=== PATIENT | female | born 1960 | race Caucasian/White ===

== ENCOUNTER 2017-12-03 09:27 | Observation (INO) | payer OTHER, SELFPAY ==
[2017-12-03] VITALS (12 sets, daily range): BP systolic 114–166; BP diastolic 56–86; PULSE 69–99; RESP 14–16; TEMP 36.3–37; O2SAT 91–98; BMI 32.3; BMI 32.8
--- NOTE | 2017-12-03 07:35 | APP_PTH ---
PATIENT: ANDIE HAMMOND LOC: MS2 U#:[id number] AGE/SX: 56/F [place] [facility] [place]: Dr. Julio Jamison MD : 1960 BED: 1 DIS: 12/04/2017 SPEC #: [id number] RECD: 12/04/17 08:30 STATUS: CARMITA BRADFORD #: [id number] LEATHA: 12/03/17 07:[address]: Julio Jamison DEPT: SURGICAL PATHOLOGY RECD BY: Mina Gamble ENTERED: 12/04/17 11:52 SP TYPE: APPENDIX OTHR DR: Dr. Ruben White MD Tissues: Appendix, NOS Procedures: Surgery Specimen Level III HEADER OPERATION: Laparoscopic appendectomy PRE-OP DIAGNOSIS: Acute appendicitis TISSUE SUBMITTED: Appendix MICROSCOPIC DIAGNOSIS Appendix, appendectomy: Acute necrotizing appendicitis. Acute serositis. AM:eduardo 12/07/17 MICROSCOPIC DESCRIPTION Slides are reviewed. GROSS DESCRIPTION Received is one container labeled with the patient's name and designated appendix. The specimen consists of a J-shaped appendix measuring 13 cm in length and up to 2 cm in average diameter. The serosa is congested. The attached periappendiceal adipose tissue measures up to 2.5 cm in thickness. No obvious perforation is identified. The lumen contains purulent fecal material. No fecalith is identified. Cableway Operator sections are submitted in one cassette. / SJ:eduardo 12/04/17 TC:2 CPT: 71628
--- NOTE | 2017-12-03 09:40 | CT_ITS ---
STUDY: CT ABDOMEN AND PELVIS WITHOUT CONTRAST REASON FOR EXAM: Female, 56 years old. Right lower quadrant pain. Diarrhea RADIATION DOSAGE (If Supplied By Facility): CTDIvol = ( 19.39 ) mGy, DLP = ( 1056.35 ) mGycm TECHNIQUE: Transaxial images were obtained from the dome of the diaphragm to the symphysis pubis without oral contrast, and without intravenous contrast. Sagittal and coronal images were reconstructed. Individualized dose optimization techniques were used for this CT. COMPARISON: None. FINDINGS: The visualized lung bases are unremarkable. The visualized portions of the heart are within normal limits. Normal liver. There is non-visualization of the gallbladder, which may be secondary to either contraction or a prior cholecystectomy. Normal spleen. Normal pancreas. Normal bilateral adrenal glands. There is a stone in the right kidney measures 2 mm without hydronephrosis. Normal left kidney. Normal visualized stomach. Normal small intestine. There are multiple colonic diverticula consistent with diverticulosis. There is non-visualization of the appendix. Normal abdominal aorta. Normal inferior vena cava. Normal retroperitoneum. Normal urinary bladder. Normal abdominal wall. Normal osseous structures. CT/Abdomen/Pelvis without Cont IMPRESSION: Colon diverticulosis. 2 mm stone in the right kidney without hydronephrosis. Electronically Signed: Corina Elliott MD at 10:59 EDT Tel , Service support ,
[2017-12-03] MEDS: 0.9% Normal Saline 1,000 ML 125 ML IV (09:58)
[2017-12-03] MEDS: Dicyclomine 20 MG/2 ML Vial IM (09:58)
[2017-12-03 10:08] LABS: Absolute Lymphocyte Count 2.34 X10^3/ul (0.83-4.51); Absolute Neutrophil Count 11.3 X10^3/uL (2.0-7.7); Basophil# 0.01 X10^3/uL; Basophil% 0.1 % (0-1); Eosinophils% 0.7 % (0-5); Hematocrit 45.6 % (37-47); Hemoglobin 15.4 g/dl (12.0-15.0); Lymphocyte # 2.34 X10^3/ul (4.0); Lymphocyte % 15.9 % (19-41); Mean Corp Hgb Conc 33.8 g/gl (32-36); Mean Corpuscular Hgb 31.9 pg (27.0-32.0); Mean Corpuscular Volume 94.4 fL (81-99); Mean Platelet Vol. 10.4 fl (6.2-12.0); Monocyte# 0.89 X10^3/uL; Monocyte% 6.1 % (0-10); Neutrophil # 11.29 X10^3/uL (2.7-7.7); Neutrophil % 76.9 % (47-70); Platelet Count 249 K/mm3 (150-450); RBC Distribution Width SD 44.8 fl (35.1-43.9); Red Blood Count 4.83 M/mm3 (4.2-5.4); White Blood Count 14.7 K/mm3 (4.4-11.0)
[2017-12-03 10:09] LABS: POSITIVE COUNT NO; POSITIVE DIFFERENTIAL NO; POSITIVE MORPHOLOGY NO
[2017-12-03 10:22] LABS: AST(SGOT) 18 U/L (15-37); Alanine Aminotransfer ALT/SGPT 35 U/L (13-56); Alkaline Phosphatase 80 U/L (45-117); Anion Gap 8 (5-15); BUN 16 mg/dL (7-18); BUN/Creat Ratio 26.1 RATIO (10-20); Chloride 106 mmol/L (98-107); Creatinine, Serum 0.61 mg/dL (0.55-1.02); EST Glomerular Filtration Rate 107 mL/min (>60); Est Glom Filt Rate - Afr Amer 130 mL/min (>60); Estimated Creatinine Clearance 97.55 ml/min; Globulin 3.9 g/dL (2.2-4.2); Glucose 103 mg/dL (74-106); Lipase 102 U/L (73-393); Protein, Total 7.9 g/dL (6.4-8.2); Sodium Level 138 mmol/L (136-145)
[2017-12-03 10:31] LABS: Lactic Acid 1.8 mmol/L (0.4-2.0)
[2017-12-03 10:35] LABS: Red Blood Cells-Urine 0 SEEN /hpf (0-5)
[2017-12-03 10:37] LABS: Color, Urine Yellow (Yellow); Glucose, Dipstick Normal (Normal); Ketone-Dipstick Negative (Negative); Leukocyte Esterase-Dipstick 25 /ul (Negative); Nitrite-Dipstick Negative (Negative); Occult Blood-Urine 50 /ul (Negative); Protein-Dipstick 15 mg/dl (Negative); Urine Bilirubin Dipstick Negative (Negative); Urine Clarity Sl. Cloudy (Clear); Urine Urobilinogen Normal (Normal)
[2017-12-03 10:43] LABS: Bacteria 1+ /hpf (None Seen); Mucous, Urine RARE /hpf (<or=2+); Squamous Epithelial Cells - UA 0-5 SEEN /hpf (5-10); White Blood Cells 0-5 SEEN /hpf (0-5)
--- NOTE | 2017-12-03 11:04 | CT_ITS ---
STUDY: CT ABDOMEN WITH CONTRAST REASON FOR EXAM: Female, 56 years old. Right lower quadrant pain. RADIATION DOSAGE (If Supplied By Facility): CTDIvol = ( 18.62 ) mGy, DLP = ( 1268.25 ) mGycm TECHNIQUE: Transaxial images were obtained post I.V. administration of 100 ml of Isovue 300 contrast, and oral contrast. Sagittal and coronal images were reconstructed. Individualized dose optimization techniques were used for this CT. COMPARISON: None. FINDINGS: The visualized lung bases are unremarkable. The visualized portions of the heart are within normal limits. Normal liver. There is non-visualization of the gallbladder, which may be secondary to either contraction or a prior cholecystectomy. Normal spleen. Normal pancreas. Normal bilateral adrenal glands. There is a stone in the right kidney measures 2 mm without hydronephrosis. Normal left kidney. Normal visualized stomach. Normal small intestine. There are multiple colonic diverticula consistent with diverticulosis. There is a tubular, thick-walled appendix (>7mm), consistent with acute appendicitis. Normal abdominal aorta. Normal inferior vena cava. Normal retroperitoneum. Normal abdominal wall. Normal osseous structures. CT/Abdomen/Pelvis WITH Contrast IMPRESSION: Acute appendicitis. Electronically Signed: Corina Elliott MD at 13:07 EDT Tel , Service support ,
[2017-12-03] MEDS: proMETHazine 25 MG/ML Syringe 12.5 MG IV (12:04)
[2017-12-03] MEDS: Ketorolac 30 MG/ML Syringe IV (12:59)
[2017-12-03] MEDS: Piperacil/Tazobactam 3.375 GM/50 ML ML IV (14:00)
--- NOTE | 2017-12-03 14:04 | ED.DCSUM_ITS ---
- ER Visit Summary Date of Service: 12/03/17 Chief Complaint: [Abdominal pain] History of Present Illness: The patient is a 56 F [presents the emergency department complaint of abdominal pain that started around 5 AM. Patient describes it as epigastric and right-sided. Patient rates her pain currently as a 4 out of 10 but was much worse at home. Patient states that yesterday she had several episodes of watery stool. Patient denies any nausea or vomiting. She denies any fever. She denies urinary symptoms. She has had no recent travel or recent antibiotic usage. Patient does state that she frequently does get diarrhea so she was not to concerned about the diarrhea yesterday. Patient has a history of hypertension and high cholesterol. Prior surgical history includes cholecystectomy and hysterectomy as well as a lumpectomy.] Physical Examination: [HEENT-PERRLA, EOMI. Cranial nerves II through XII grossly intact. TMs clear. Mucous membranes moist. No adenopathy. Cardiovascular-regular rate and rhythm without murmur or ectopy Lungs-clear to auscultation, chest wall stable without crepitus or subcu emphysema Abdomen-normoactive bowel sounds, soft. Patient has tenderness palpation over the epigastric region as well as the right lower quadrant over McBurney's point. Patient does not have rebound, rigidity, or perineal signs. Extremities-intact ?4, normal range of motion, normal pulses, atraumatic] Test Results: [CBC with differential obtained showed a white blood cell count of 14.7, hemoglobin 15, hematocrit 46, platelets 249. Chemistries unremarkable. Liver enzymes were normal. Lipase was normal. Urinalysis was normal. CT flank initially without contrast was obtained and there was nonvisualization of the appendix. Patient was given p.o. contrast as well as IV contrast and a repeat CAT scan was obtained which does show a tubular structure in the right lower quadrant consistent with acute appendicitis.] Emergency Department Course and Treatment: [Patient case was discussed with Dr. Jamison who will evaluate patient in the emergency department. Patient was started on Zosyn at the request of the surgeon.] Treatment Plan: [Admit for operative intervention of acute appendicitis] Disposition: [Admit] Impression: [Abdominal pain Acute appendicitis] This note was generated with [employer] software. It may contain incorrect words, spelling, and punctuation that were not noted in review of the chart prior to signing ED Disposition - Plan for ED Patient: Chief Complaint: Abd Pain Referrals: Ruben White MD [Primary Care Provider] -
--- NOTE | 2017-12-03 14:39 | PCM.HP.STD ---
Problem List (1) Acute appendicitis Status: Acute Qualifiers: Acute appendicitis type: unspecified acute appendicitis type Qualified Code(s): K35.80 - Unspecified acute appendicitis History of Present Illness Date of Admission: 12/03/17 The patient is a 56 year old F who reports that she was having right lower quadrant pain that started this morning. She does have associated nausea vomiting. She says that the pain was getting worse until she got pain medication and out feels better. Past Medical History Allergies No Known Allergies Allergy (Unverified 12/03/17 09:29) Home Medications: Ambulatory Orders Medication Instructions Recorded Amlodipine Besylate [Norvasc] 5 mg PO DAILY 12/01/16 Escitalopram Oxalate [Lexapro] 20 mg PO DAILY 12/01/16 Pravastatin Sodium [Pravachol] 10 mg PO DAILY 12/01/16 Surgical History: cholecystectomy, - - Hysterectomy, tubal ligation Smoking Status: Current every day smoker - *Family History Maternal History Items: No pertinent history Review of Systems Constitutional: Reports: Anorexia. Denies: Chills HEENT: Denies: Difficulty Hearing Cardiovascular: Denies: Chest Pain Respiratory: Denies: Cough, Shortness of Breath Gastrointestinal: Reports: Abdominal Pain, Nausea, Vomiting. Denies: Hematemesis, Hematochezia Genitourinary: Denies: Dysuria Musculoskeletal: Denies: Joint Tenderness Skin: Denies: Dryness, Jaundice Psychiatric: Denies: Anxiety Hematologic/ Lymphatic: Denies: Anemia VTE Information - Inpt Only VTE Present on Admission: No VTE Mechan Device Prophylaxis: SCD's Patient Problems: Active and Suspected Problems Acute appendicitis (Acute) - Physical Exam General: Alert, Oriented x3 HEENT: PERRLA, EOMI Neck: Supple, No JVD Lungs: Normal air movement Cardiovascular: Regular rate, Regular Rhythm Abdomen: Soft, Non-Distended, Tender - Right lower quadrant with no guarding or rebound Extremities: No clubbing Skin: No rashes Musculoskeletal: No Muscle Wasting Neurological: Cranial nerves II-XII grossly intact Psych/Mental Status: Normal Affect, Appropriate Vital Signs Temp Pulse Resp BP Pulse Ox 97.9 F 75 16 158/85 H 97 12/03/17 14:17 12/03/17 14:17 12/03/17 14:17 12/03/17 14:17 12/03/17 14:17 Oxygen Delivery Method Room Air Weight: 200 lb Body Mass Index (BMI) 32.3 Laboratory Tests Past 24 Hrs 12/03/17 12/03/17 12/03/17 10:00 10:00 10:00 WBC 14.7 H RBC 4.83 Hgb 15.4 H Hct 45.6 MCV 94.4 MCH 31.9 MCHC 33.8 RDW 13.0 RDW Differential 44.8 H Plt Count 249 MPV 10.4 Immature Gran % (Auto) 0.300 Neut % (Auto) 76.9 H Lymph % (Auto) 15.9 L [place] % (Auto) 6.1 Eos % (Auto) 0.7 Baso % (Auto) 0.1 Absolute Neuts (auto) 11.3 H Absolute Lymphs (auto) 2.34 Total Counted Not Reportable Sodium 138 Potassium 4.0 Chloride 106 Carbon Dioxide 24.0 Anion Gap 8 BUN 16 Creatinine 0.61 Estim Creat Clear Calc 97.55 Est GFR (MDRD) Af Amer 130 Est GFR (MDRD) Non-Af 107 BUN/Creatinine Ratio 26.1 H Glucose 103 Lactic Acid 1.8 Calcium 9.0 Total Bilirubin 0.30 AST 18 ALT 35 Alkaline Phosphatase 80 Total Protein 7.9 Albumin 4.0 Globulin 3.9 Albumin/Globulin Ratio 1.0 Lipase 102 Urine Color Urine Clarity Urine pH Ur Specific [place] Urine Protein Urine Glucose (UA) Urine Ketones Urine Occult Blood Urine Nitrite Urine Bilirubin Urine Urobilinogen Ur Leukocyte Esterase Urine RBC Urine WBC Ur Squamous Epith Cells Urine Bacteria Urine Mucus 12/03/17 10:30 WBC RBC Hgb Hct MCV MCH MCHC RDW RDW Differential Plt Count MPV Immature Gran % (Auto) Neut % (Auto) Lymph % (Auto) [place] % (Auto) Eos % (Auto) Baso % (Auto) Absolute Neuts (auto) Absolute Lymphs (auto) Total Counted Sodium Potassium Chloride Carbon Dioxide Anion Gap BUN Creatinine Estim Creat Clear Calc Est GFR (MDRD) Af Amer Est GFR (MDRD) Non-Af BUN/Creatinine Ratio Glucose Lactic Acid Calcium Total Bilirubin AST ALT Alkaline Phosphatase Total Protein Albumin Globulin Albumin/Globulin Ratio Lipase Urine Color Yellow Urine Clarity Sl. Cloudy Urine pH 6.0 Ur Specific [place] 1.020 Urine Protein 15 H Urine Glucose (UA) Normal Urine Ketones Negative Urine Occult Blood 50 H Urine Nitrite Negative Urine Bilirubin Negative Urine Urobilinogen Normal Ur Leukocyte Esterase 25 H Urine RBC 0 SEEN Urine WBC 0-5 SEEN Ur Squamous Epith Cells 0-5 SEEN Urine Bacteria 1+ Urine Mucus RARE Clinical Impression(s) from Imaging Studies Abdomen/Pelvis CT 12/03/17 09:40 IMPRESSION: Colon diverticulosis. 2 mm stone in the right kidney without hydronephrosis. Electronically Signed: Corina Elliott MD at 10:59 EDT Tel , Service support , Abdomen/Pelvis CT 12/03/17 11:04 IMPRESSION: Acute appendicitis. Electronically Signed: Corina Elliott MD at 13:07 EDT Tel , Service support , Assessment/Plan All Active Problems Acute appendicitis (Acute) Ductal carcinoma in situ (DCIS) of left breast (Resolved) 56-year-old female with acute appendicitis 1. The patient has acute appendicitis based on her right lower quadrant pain and leukocytosis and CT scan findings. I described laparoscopic appendectomy to the patient including the risks of bleeding, infection, bowel injury, bladder injury. The patient wishes to proceed with surgery. The patient has been given antibiotics in the ER. Julio Jamison MD Pager: [facility] [address] [place] [address], [address] [place] [address] Office:
--- NOTE | 2017-12-03 14:44 | HP.PCM_ITS ---
Problem List (1) Acute appendicitis Status: Acute Qualifiers: Acute appendicitis type: unspecified acute appendicitis type Qualified Code(s): K35.80 - Unspecified acute appendicitis History of Present Illness Date of Admission: 12/03/17 The patient is a 56 year old F who reports that she was having right lower quadrant pain that started this morning. She does have associated nausea vomiting. She says that the pain was getting worse until she got pain medication and out feels better. Past Medical History Allergies No Known Allergies Allergy (Unverified 12/03/17 09:29) Home Medications: Ambulatory Orders Medication Instructions Recorded Amlodipine Besylate [Norvasc] 5 mg PO DAILY 12/01/16 Escitalopram Oxalate [Lexapro] 20 mg PO DAILY 12/01/16 Pravastatin Sodium [Pravachol] 10 mg PO DAILY 12/01/16 Surgical History: cholecystectomy, - - Hysterectomy, tubal ligation Smoking Status: Current every day smoker - *Family History Maternal History Items: No pertinent history Review of Systems Constitutional: Reports: Anorexia. Denies: Chills HEENT: Denies: Difficulty Hearing Cardiovascular: Denies: Chest Pain Respiratory: Denies: Cough, Shortness of Breath Gastrointestinal: Reports: Abdominal Pain, Nausea, Vomiting. Denies: Hematemesis, Hematochezia Genitourinary: Denies: Dysuria Musculoskeletal: Denies: Joint Tenderness Skin: Denies: Dryness, Jaundice Psychiatric: Denies: Anxiety Hematologic/ Lymphatic: Denies: Anemia VTE Information - Inpt Only VTE Present on Admission: No VTE Mechan Device Prophylaxis: SCD's Patient Problems: Active and Suspected Problems Acute appendicitis (Acute) - Physical Exam General: Alert, Oriented x3 HEENT: PERRLA, EOMI Neck: Supple, No JVD Lungs: Normal air movement Cardiovascular: Regular rate, Regular Rhythm Abdomen: Soft, Non-Distended, Tender - Right lower quadrant with no guarding or rebound Extremities: No clubbing Skin: No rashes Musculoskeletal: No Muscle Wasting Neurological: Cranial nerves II-XII grossly intact Psych/Mental Status: Normal Affect, Appropriate Vital Signs Temp Pulse Resp BP Pulse Ox 97.9 F 75 16 158/85 H 97 12/03/17 14:17 12/03/17 14:17 12/03/17 14:17 12/03/17 14:17 12/03/17 14:17 Oxygen Delivery Method Room Air Weight: 200 lb Body Mass Index (BMI) 32.3 Laboratory Tests Past 24 Hrs 12/03/17 12/03/17 12/03/17 10:00 10:00 10:00 WBC 14.7 H RBC 4.83 Hgb 15.4 H Hct 45.6 MCV 94.4 MCH 31.9 MCHC 33.8 RDW 13.0 RDW Differential 44.8 H Plt Count 249 MPV 10.4 Immature Gran % (Auto) 0.300 Neut % (Auto) 76.9 H Lymph % (Auto) 15.9 L [place] % (Auto) 6.1 Eos % (Auto) 0.7 Baso % (Auto) 0.1 Absolute Neuts (auto) 11.3 H Absolute Lymphs (auto) 2.34 Total Counted Not Reportable Sodium 138 Potassium 4.0 Chloride 106 Carbon Dioxide 24.0 Anion Gap 8 BUN 16 Creatinine 0.61 Estim Creat Clear Calc 97.55 Est GFR (MDRD) Af Amer 130 Est GFR (MDRD) Non-Af 107 BUN/Creatinine Ratio 26.1 H Glucose 103 Lactic Acid 1.8 Calcium 9.0 Total Bilirubin 0.30 AST 18 ALT 35 Alkaline Phosphatase 80 Total Protein 7.9 Albumin 4.0 Globulin 3.9 Albumin/Globulin Ratio 1.0 Lipase 102 Urine Color Urine Clarity Urine pH Ur Specific [place] Urine Protein Urine Glucose (UA) Urine Ketones Urine Occult Blood Urine Nitrite Urine Bilirubin Urine Urobilinogen Ur Leukocyte Esterase Urine RBC Urine WBC Ur Squamous Epith Cells Urine Bacteria Urine Mucus 12/03/17 10:30 WBC RBC Hgb Hct MCV MCH MCHC RDW RDW Differential Plt Count MPV Immature Gran % (Auto) Neut % (Auto) Lymph % (Auto) [place] % (Auto) Eos % (Auto) Baso % (Auto) Absolute Neuts (auto) Absolute Lymphs (auto) Total Counted Sodium Potassium Chloride Carbon Dioxide Anion Gap BUN Creatinine Estim Creat Clear Calc Est GFR (MDRD) Af Amer Est GFR (MDRD) Non-Af BUN/Creatinine Ratio Glucose Lactic Acid Calcium Total Bilirubin AST ALT Alkaline Phosphatase Total Protein Albumin Globulin Albumin/Globulin Ratio Lipase Urine Color Yellow Urine Clarity Sl. Cloudy Urine pH 6.0 Ur Specific [place] 1.020 Urine Protein 15 H Urine Glucose (UA) Normal Urine Ketones Negative Urine Occult Blood 50 H Urine Nitrite Negative Urine Bilirubin Negative Urine Urobilinogen Normal Ur Leukocyte Esterase 25 H Urine RBC 0 SEEN Urine WBC 0-5 SEEN Ur Squamous Epith Cells 0-5 SEEN Urine Bacteria 1+ Urine Mucus RARE Clinical Impression(s) from Imaging Studies Abdomen/Pelvis CT 12/03/17 09:40 IMPRESSION: Colon diverticulosis. 2 mm stone in the right kidney without hydronephrosis. Electronically Signed: Corina Elliott MD at 10:59 EDT Tel , Service support , Abdomen/Pelvis CT 12/03/17 11:04 IMPRESSION: Acute appendicitis. Electronically Signed: Corina Elliott MD at 13:07 EDT Tel , Service support , Assessment/Plan All Active Problems Acute appendicitis (Acute) Ductal carcinoma in situ (DCIS) of left breast (Resolved) 56-year-old female with acute appendicitis 1. The patient has acute appendicitis based on her right lower quadrant pain and leukocytosis and CT scan findings. I described laparoscopic appendectomy to the patient including the risks of bleeding, infection, bowel injury, bladder injury. The patient wishes to proceed with surgery. The patient has been given antibiotics in the ER. Julio Jamison MD Pager: [facility] [address] [place] [address], [address] [place] [address] Office:
[2017-12-03] MEDS: Bupiv/Epi 0.5% Mpf 30 ML Vial (16:03)
--- NOTE | 2017-12-03 16:12 | PCM.OPRPT ---
Problem List (1) Acute appendicitis Status: Acute Qualifiers: Acute appendicitis type: unspecified acute appendicitis type Qualified Code(s): K35.80 - Unspecified acute appendicitis Report of Operation Date of Procedure: 12/03/17 Pre-Operative Diagnosis: Acute appendicitis Post-Operative Diagnosis: Same Surgery/Procedure Performed:: Laparoscopic appendectomy Specimen's removed: Appendix Description of Procedure: The patient was brought into the operating room and general anesthesia was induced. The left arm was tucked and the abdomen was prepped and draped in usual sterile fashion. A small midline incision was made superior to the umbilicus and deepened to the level of the fascia. The fascia was elevated and incised. The peritoneum was also elevated and incised. A finger sweep was performed and a balloon trocar was placed into the abdomen and inflated. The abdomen was insufflated to 15 mmHg and the camera was inserted and the abdomen was inspected for any injuries upon entering the abdomen. There were none. There were dense adhesions in the superior abdomen adjacent to the umbilical trocar. The patient was placed in Trendelenburg position and a 5 mm ports placed in the left lower quadrant and suprapubic areas under direct visualization. Adhesions to the abdominal wall were taken down bluntly with a grasper. Next using atraumatic bowel graspers the appendix was identified. The appendix was grasped and elevated and a harmonic scalpel was used to take down the mesoappendix. A stapler was used to come across the base of the appendix. The appendix was then placed in Endo Catch bag and removed through the umbilical incision. The staple line was inspected and found to be hemostatic and intact. The 2 5 mm ports are removed under direct visualization. The balloon trocar was deflated and removed and all the air was removed from the abdomen. The umbilical incision fascia was closed with an 0 Vicryl [id number] suture. The incisions were then irrigated with saline and dried. Local anesthetic was injected into the incision sites. The skin incisions were then closed with interrupted 4-0 Monocryl suture and Steri-Strips. Bandages were applied and the patient was awoken and taken to PACU in stable condition. Patient tolerated the procedure well.
--- NOTE | 2017-12-03 16:18 | PCM.DC.SUM ---
Discharge Date and Diagnosis Date of Admission: 12/03/17 Date of Discharge: 12/04/17 - Primary Discharge Diagnosis Active and Suspected Problems Acute appendicitis (Acute) Hospital Course and Treatment Imaging Results: 12/03/17 09:40 Abdomen/Pelvis without Cont [CT] Stat 12/03/17 11:04 CT Abd [Abdomen/Pelvis WITH Contrast] [CT] Stat Clinical Impression(s) from Imaging Studies Abdomen/Pelvis CT 12/03/17 09:40 IMPRESSION: Colon diverticulosis. 2 mm stone in the right kidney without hydronephrosis. Electronically Signed: Corina Elliott MD at 10:59 EDT Tel , Service support , Abdomen/Pelvis CT 12/03/17 11:04 IMPRESSION: Acute appendicitis. Electronically Signed: Corina Elliott MD at 13:07 EDT Tel , Service support , Operations: appendectomy Procedures: None Summary of Care Provided: The patient is a 56 year old F who presented with RLQ pain. CT confirmed acute appendicitis and she was taken immediately for laparoscopic appendectomy. She tolerated surgery well and was admitted for observation. The following day she was tolerating a diet and doing well. She was discharged home. Discharge Diet: Light diet - advance as tolerated Discharge Activity: Return to Normal Activity, May Shower Call your doctor if your incision/area has: Continuous Slow Oozing, Sudden Increased Bleeding, Increased Pain/ Swelling, Increased Redness, Foul Smelling Discharge, Swelling at the incision site Call your doctor if you observe: Fever of 101 or Higher Home Medications: Medications to take at Discharge Amlodipine Besylate [Norvasc] 5 mg PO DAILY 12/01/16 Escitalopram Oxalate [Lexapro] 20 mg PO DAILY 12/01/16 Pravastatin Sodium [Pravachol] 10 mg PO DAILY 12/01/16 Docusate Sodium [Colace] 100 mg PO BID capsule 12/04/17 Hydrocodone Bitart/Apap 5-325 [[place] 5/325] 1 - 2 tablet PO Q4H PRN PRN 7 Days #30 tablet 10/05/18 Following Prescrptions Were Given to Patient: Hydrocodone Bitart/Apap 5-325 [[place] 5/325] 1 - 2 tablet PO Q4H PRN PRN 7 Days #30 tablet PRN Reason: Severe Pain (-12/09) Primary Care Physician: Ruben White MD [Primary Care Provider] - Please Follow Up With: Julio Jamison MD Medical Necessity - Tobacco Use Smoking Status: Current every day smoker Meaningful Use Info Meaningful Use Diagnoses (Choose all that apply): None applicable
[2017-12-03] MEDS: Docusate Sodium 100 MG Capsule PO (21:00)
[2017-12-03] MEDS: HYDROcodone Bitartrate/Apap 5/325 Tablet PO (21:00)
[2017-12-03] MEDS: 0.9% Normal Saline 1,000 ML 100 ML IV (21:00)
[2017-12-04] MEDS: Morphine 2 MG/ML Syringe IV (00:09)
[2017-12-04] MEDS: 0.9% NaCl Peripheral Flush Adult/Peds IV (00:09)
[2017-12-04 03:38] VITALS: BP 119/73; PULSE 70; RESP 18; TEMP 36.8; O2SAT 96
[2017-12-04] MEDS: HYDROcodone Bitartrate/Apap 5/325 Tablet PO (03:40)
[2017-12-04] MEDS: 0.9% Normal Saline 1,000 ML 100 ML IV (05:02)
--- NOTE | 2017-12-04 06:49 | PCM.DC.APPY ---
Discharge Diet: Light diet - advance as tolerated Discharge Activity: May Not Drive - for 3-5 days or while taking narcotic pain meds., May Shower Call your doctor if your incision/area has: Continuous Slow Oozing, Sudden Increased Bleeding, Increased Pain/ Swelling, Increased Redness, Foul Smelling Discharge Call your doctor if you observe: Fever of 101 or Higher Suture Line Care: Avoid Pulling/Pushing, Avoid Pinching/Bending Additional Dressing/Incision Instructions:: Keep dressing clean and dry. Change or remove dressing in 2 days. Leave steri strips for 1 week. May protect with a gauze bandaid. Medications to take at Discharge Amlodipine Besylate [Norvasc] 5 mg PO DAILY 12/01/16 Escitalopram Oxalate [Lexapro] 20 mg PO DAILY 12/01/16 Pravastatin Sodium [Pravachol] 10 mg PO DAILY 12/01/16 Docusate Sodium [Colace] 100 mg PO BID capsule 12/04/17 Hydrocodone Bitart/Apap 5-325 [[place] 5/325] 1 - 2 tablet PO Q4H PRN PRN 7 Days #30 tablet 12/04/17 Allergies/Adverse Reactions: Allergies No Known Allergies Allergy (Unverified 12/03/17 09:29) The following prescriptions were given: Hydrocodone Bitart/Apap 5-325 [[place] 5/325] 1 - 2 tablet PO Q4H PRN PRN 7 Days #30 tablet PRN Reason: Severe Pain (6-12/09) Primary Care Physician: Ruben White MD [Primary Care Provider] - Test Results: Test results from this visit will be discussed in further detail at your follow-up appointment, if applicable. Please Follow Up With: Julio Jamison MD When: Please call to schedule 2 week follow up appointment. [phone]
[2017-12-04 07:27] VITALS: BP 110/68; PULSE 68; RESP 18; TEMP 36.9; O2SAT 95
[2017-12-04 07:33] VITALS: PULSE 70
[2017-12-04] MEDS: Docusate Sodium 100 MG Capsule PO (09:38)
== END 2017-12-04 10:17 | disposition home or self-care (01) ==
LOC: ED 14:04 → SDC 14:27 → AC 14:29 → MS2 21:17
PROVIDERS: Admitting Provider Surgery; Emergency Provider Emergency Medicine; Family Provider Family Medicine; PCP Family Medicine; Visit Provider Surgery
PROC: 0DTJ4ZZ Resection of Appendix, Percutaneous Endoscopic Approach (ICD-10-PCS; CPT 44970; principal; 2017-12-03 07:15)
DX: K35.80 Unspecified acute appendicitis (principal); E78.00 Pure hypercholesterolemia, unspecified; I10 Essential (primary) hypertension; Z79.899 Other long term (current) drug therapy; F17.200 Nicotine dependence, unspecified, uncomplicated; Z85.3 Personal history of malignant neoplasm of breast
CPT/HCPCS: 00840; 44970; 74176; 74177; 80053; 81001; 83605; 83690; 85025; 87506; 88304; 96361; 96372; 96374; 96375; 99218; 99284; J7030; Q9967; A4216; C1760; G0378; J2405

== ENCOUNTER → 2018-01-02 10:31 | Outpatient (CLI) | payer OTHER, SELFPAY ==
--- NOTE | 2018-01-02 10:34 | BI_ITS ---
MAMMOGRAPHY - BILATERAL SCREENING REASON FOR EXAM: Female, 57 years old. Routine annual screening examination. PERTINENT HISTORY: Personal history of breast cancer. Prior left lumpectomy with radiation treatment. TECHNIQUE: Digital bilateral breast kae (3D mammographic acquisition) in the CC and MLO projections. 2-D mediolateral oblique (MLO) and craniocaudad (CC) views of both breasts were obtained. CAD: Full Field Digital Mammography with Computer Added Detection was performed. COMPARISON: Comparison is made with prior study dated November 27, 2016 and November 27, 2015. FINDINGS: Breast Composition: There are scattered areas of fibroglandular density. There are no dominant masses or suspicious calcifications. The patient is status post left lumpectomy with resultant decreased size of the left breast. Surgical clips are seen at the operative site in the deep retroareolar region. This is unchanged. No other significant abnormalities are identified. There has been no significant change since the prior study. BI/SCREENING MAMM (CAD), BILAT IMPRESSION: Stable bilateral screening mammogram. Yearly follow-up mammogram recommended. (A) ASSESSMENT CATEGORY: BIRADS Category 2: Benign. A letter regarding these results will be sent to the patient by the facility within 30 days. Approximately 10% of breast cancers are not detected by mammography. A normal mammogram should not delay biopsy of a clinically suspicious abnormality. [id number] Electronically Signed: Tello Madrid MD at 9:46 EST Tel [phone], Service support ,
== END ==
PROVIDERS: Family Provider Family Medicine; PCP Family Medicine; Visit Provider Internal Medicine Medical Oncology
DX: Z12.31 Encounter for screening mammogram for malignant neoplasm of breast (principal); Z85.3 Personal history of malignant neoplasm of breast
CPT/HCPCS: 77063; 77067

== ENCOUNTER → 2018-01-28 13:32 | Outpatient (CLI) | payer OTHER, SELFPAY ==
--- NOTE | 2018-01-28 13:36 | ECHOD_ITS ---
Reason For Study: Murmur Procedure This was a 2D Doppler, Color Flow transthoracic echocardiogram. The exam was of adequate technical quality. Exam performed in department. Left Ventricle Normal LV size. Left ventricular systolic function is hyperdynamic. The estimated ejection fraction is 75 %. The global longitudinal strain = -20 % (normal). Transmitral doppler flow suggestive of impaired relaxation of left ventricle. No regional wall motion abnormalities noted. Right Ventricle Normal RV size. Normal systolic function. Atria The left atrium is mildly enlarged. Normal right atrium. No doppler evidence for ASD. Mitral Valve There is no mitral annular calcification. Normal mitral valve. Trivial mitral valve insufficiency. Tricuspid Valve Normal tricuspid valve. Trivial tricuspid valve insufficiency. Right ventricular systolic pressure estimated to be 27 mmHg. Aortic Valve Trisinus/trileaflet aortic valve. Normal aortic valve. Pulmonic Valve The pulmonic valve is not well visualized. Trivial pulmonic valve insufficiency. Great Vessels Normal sized aortic root. Pericardium/Pleural No pericardial effusion. MMode/2D Measurements & Calculations LVIDd: 4.2 cm IVSd: 1.3 cm Ao root diam: 3.4 cm LVIDs: 3.2 cm LVPWd: 1.1 cm LA dimension: 3.8 cm RVDd: 3.3 cm FS: 23.3 % LAV(MOD-sp4): 55.9 ml LVAd ap4: 21.5 cm2 SV(MOD-sp4): 28.5 ml EDV(MOD-sp4): 46.6 ml EDV(sp4-el): 46.6 ml LVAs ap4: 11.0 cm2 ESV(MOD-sp4): 18.1 ml ESV(sp4-el): 16.4 ml EF(MOD-sp4): 61.2 % EF(sp4-el): 64.9 % SV(sp4-el): 30.3 ml LA A4 area: 19.5 cm2 RA A4 area: 11.5 cm2 Time Measurements MV dec time: 0.23 sec Doppler Measurements & Calculations MV E max stevie: 68.3 cm/sec Lat Peak E' Stevie: 8.2 cm/sec Med Peak E' Stevie: 7.4 cm/sec MV A max stevie: 94.3 cm/sec E/E' lat: 8.3 E/E' med: 9.2 MV E/A: 0.72 MV V2 max: 98.2 cm/sec MV P1/2t max stevie: 81.9 cm/sec Ao V2 max: 148.3 cm/sec MV max P.9 mmHg MV P1/2t: 62.2 msec Ao max P.8 mmHg MV V2 mean: 61.8 cm/sec Ao V2 mean: 109.0 cm/sec MV mean P.7 mmHg MV dec slope: 385.5 cm/sec2 Ao mean P.1 mmHg MV V2 VTI: 20.0 cm MVA(P1/2t): 3.5 cm2 Ao V2 VTI: 27.3 cm LV V1 max: 135.8 cm/sec PA V2 max: 132.9 cm/sec TR max stevie: 243.1 cm/sec LV V1 max P.4 mmHg TR max P.6 mmHg LV V1 mean P.5 mmHg LV V1 mean: 85.9 cm/sec LV V1 VTI: 23.9 cm Interpretation Summary Left ventricular systolic function is hyperdynamic. The estimated ejection fraction is 75 %. The global longitudinal strain = -20 % (normal). The left atrium is mildly enlarged. Trivial mitral valve insufficiency. Trivial tricuspid valve insufficiency. Trivial pulmonic valve insufficiency. Right ventricular systolic pressure estimated to be 27 mmHg. Transmitral doppler flow suggestive of impaired relaxation of left ventricle Ordering Physician: Ruben White Referring Physician: Ruben White Performed By: Berry Caballero RCS
--- OUTSIDE RECORDS SUMMARY | 2018-03-25 18:08 | XMS RPT_ITS ---
:1960 Author Organization OHIP Care Team Providers Name Role Phone Drew Worrell Attending Unavailable Maye White Primary Care Unavailable Maye White Referring Unavailable White, Maye Primary Care Unavailable Julio Jamison Attending Unavailable Meaghan Jamisonony Admitting Unavailable Calabretta, Julio Attending Unavailable White, Maye Primary Care Unavailable Calabretta, Julio Consulting Unavailable Calabretta, Julio Attending Unavailable White, Maye Referring Unavailable Drew Worrell Attending Unavailable White, Maye Primary Care Unavailable White, Maye Attending Unavailable White, Maye Referring Unavailable White, Maye Primary Care Unavailable Drew Worrell Attending Unavailable White, Maye Referring Unavailable White, Maye Primary Care Unavailable Drew Worrell Consulting Unavailable PROBLEMS PROBLEMS DATE TYPE CONDITION / CODE ATTENDING STATUS SOURCE 02/05/2018 Unknown C50.112 - Drew Worrell Active [facility] of left female Repository breast / C50.112(ICD-10) 02/05/2018 Unknown Z85.3 - Personal Drew Worrell Active [place] [facility] malignant ne[facility] Hospital of breast / Repository Z85.3(ICD-10) 12/07/2017 Unknown K35.80 - Mirella Jamison Unspecified acute [facility] appendicitis / Hospital K35.80(ICD-10) Repository PROCEDURES PROCEDURES No Procedure Records FoundRESULTS RESULTS ONCOLOGY VISIT REPORT Observed: 02/04/2018 Status: F Source: [place] 3:46 PM [facility] REPOSITORY [facility] [address] [place] [address] OFFICE VISIT Date of Service: 02/04/18 1540 MR#: [id number] Acct: [id number] Name: ANDIE HAMMOND Rep #: [id number] : 1960 From: Drew Worrell MD Age/Sex: 57/F Location: [facility] Status: Signed Subjective - Date of Service Date of Service:: 02/04/18 - Chief Complaint F/u for Left breast DCIS. - History of Present Illness 57-year-old woman was found to have abnormal mammogram in June 2008. Stereotactic biopsy showed low-grade DCIS. She had lumpectomy with sentinel node biopsy on September 13, 2008 which showed fibrocystic disease. She took radiation therapy from November 13 to January 04, 2009. She took tamoxifen from September 2008 to July 2010 it was discontinued because of intolerance especially hot flashes. She is currently on observation, comes in for follow-up. - Past Medical/Social History Past Medical History Past Medical History: Depression,Hypertension,Vitamin D deficiency Cancer: Breast cancer Past Surgical History Surgical: Cholecystectomy,Hysterectomy,Lumpectomy,Tubal ligation Family History Paternal Past Medical History: Unknown Paternal History of Cancer Lung cancer Maternal Past Medical History: Unknown Maternal History of Cancer: Lung cancer Social History Smoking Status Current every day smoker Review of Systems Constitutional:: Denies: Fever, Sweats, Weight loss, Appetite change, Chills Cardiovascular:: Denies: Chest pain, Palpitations, Dyspnea on exertion, Orthopnea, PND, Shortness of breath Respiratory: Denies: Cough, Hemoptysis, Shortness of Breath, Wheezing Gastrointestinal:: Denies: Abdominal pain, Nausea, Vomiting, Diarrhea, Constipation, Hematochezia Genitourinary: Denies: Dysuria, Hematuria, 15, Flank pain Musculoskeletal:: Denies: Back pain, Myalgia, Arthralgia Skin: Denies: Rash, Skin Changes, Wounds Neurological:: Denies: Headache, Dizziness, Visual changes, Tinnitus, Hearing loss Psychiatric: Denies: Anxiety, Depression, Homicidal Ideations, Suicidal Ideations Vital Signs Height 5 ft 6.5 in Weight: 95.708 kg Weight in Pounds 211.0 lbs Pulse Ox 95 - Physical Exam General: Alert, Oriented x3, No apparent distress HEENT: Atraumatic, PERRLA, EOMI, Normocephalic Oropharynx:: Dry mucosa Neck:: Supple, Trachea midline. Negative for: JVD, bilateral Cardiac:: Regular rate, Regular rhythm, Normal S1, Normal S2. Negative for: Murmur Lungs: Clear to auscultation, Excusion symmetrical. Negative for: Rhonchi, Wheezes Abdomen:: Bowel sounds x 4, Soft, Non-tender, Non-distended. Negative for: Hepatosplenomegaly Extremities:: Negative for: Cyanosis, Edema Neurological: Neuro grossly intact Skin:: Negative for: Lesions, Rash, Petechiae, Ecchymosis Psychiatric:: Appropriate affect, Euthymic Lymphatics:: Negative for: Cervical lymphadenopathy, Supraclavicular lymphadenopathy, Axillary lymphadenopathy Breast:: - - Deferrred. Laboratory Data: Laboratory Tests WBC 9.4 (4.4-11.0) K/mm3 RBC 4.76 (4.2-5.4) M/mm3 Hgb 15.3 H (12.0-15.0) g/dl Diagnostic Data: 01/02/2018 Mammogram reviewed. BI/SCREENING MAMM (CAD), BILAT IMPRESSION: Stable bilateral screening mammogram. Yearly follow-up mammogram recommended. (A) Assessment and Plan Left breast DCIS. Clinically stable. Mammogram is negative. Plan is to continue observation. RTC 1 yr with Mammogram/CBC/CMP. 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 TYPE CODE TESTS RESULT OUT OF RANGE REFERENCE UNITS LAB L100.1000 4.4-11.0 K/mm3 Normal WBC 9.4 LAB L100.1200 4.2-5.4 M/mm3 Normal RBC 4.76 LAB L100.1300 12.0-15.0 g/dl High HGB 15.3 LAB L100.1400 37-47 % Normal HCT 44.9 LAB L100.1500 81-99 fL Normal MCV 94.3 LAB L100.1600 27.0-32.0 pg High MCH 32.1 LAB L100.1700 32-36 g/gl Normal MCHC 34.1 LAB L100.1810 11.6-14.6 % Normal RDW CV 12.9 LAB L100.1820 35.1-43.9 fl High RDW SD 44.7 LAB L100.1900 150-450 K/mm3 Normal PLT 294 LAB L100.2000 6.2-12.0 fl Normal MPV 10.2 LAB L100.2100 47-70 % Normal NEUT% 62.4 LAB L100.2200 19-41 % Normal LY% 29.1 LAB L100.2300 0-10 % Normal MONO% 5.5 LAB L100.2400 0-5 % Normal EO% 2.5 LAB L100.2500 0-1 % Normal BASO% 0.2 LAB L100.2550 0.0-0.9 % Normal IM GRAN % 0.300 Result Comment: IG% - Immature Granulocytes (promyelocytes, myelocytes and metamyelocytes) > 1% indicates that a LEFT SHIFT is Present. LAB L100.2620 2.0-7.7 X10 3/uL Normal Absolute Neut 5.9 LAB L100.2720 0.83-4.51 X10 3/ul Normal Absolute Lymph 2.73 Performed By: #### L100.0100 #### [facility] [address] [place], [address] COMPREHENSIVE METABOLIC Collected: 02/04/2018 Status: F Source: [facility] 2:53 PM [facility] REPOSITORY Order Comment: Reason for Laboratory Test . TYPE CODE TESTS RESULT OUT OF RANGE REFERENCE UNITS LAB L501.0100 74-106 mg/dL High GLU 113 Result Comment: Fasting Glucose result from 100 to 125 mg/dL suggests IMPAIRED HOMEOSTASIS per A.D.A. criteria. Please note revised GLUCOSE reference range effective 2017. LAB L501.1000 7-18 mg/dL Normal BUN 18 LAB L501.1100 0.55-1.02 mg/dL Normal CREAT,SERUM 0.75 Result Comment: The validity of the calculated GFR AND GFRAA in patients over 70 years has not been determined. Clinical correlation is essential. LAB L501.1110 >60 mL/min Normal EST GFR 85 Result Comment: Non- GFR Calc LAB L501.1115 >60 mL/min Normal EST GFR - AA 103 Result Comment: GFR Calc LAB L501.1255 ml/min Normal Estimated CRCL 78.41 LAB L501.1300 10-20 RATIO High BUN/CRE 24.0 LAB L501.1500 6.4-8. g/dL Normal 2 T PROT 7.8 LAB L501.1800 3.2-5. g/dL Normal 0 ALB 3.9 LAB L501.1950 2.2-4. g/dL Normal 2 GLOB 3.9 LAB L501.2000 0.9-2. RATIO Normal 4 A/G 1.0 LAB L501.2200 8.5-10 mg/dL Normal .1 CA 9.0 LAB L501.4100 15-37 U/L Normal AST 21 Result Comment: Slight Hemolysis, Result may be falsely increased. LAB L501.4305 45-117 U/L Normal ALK P 86 LAB L501.4405 13-56 U/L Normal ALT 39 LAB L501.4600 0.20-1.00 mg/dL Normal T BILI 0.20 LAB L501.5300 136-145 mmol/L Normal NA 141 LAB L501.5600 3.5-5.1 mmol/L Normal K 4.0 Result Comment: Slight Hemolysis, Result may be falsely increased. LAB L501.5900 98-107 mmol/L Normal CL 107 LAB L501.6100 21.0-32.0 mmol/L Normal CO2 25.0 LAB L501.6200 5-15 Normal 9 GAP Performed By: #### L500.4050 #### [facility] [address] [facility] [place], [address] ECHOCARDIOGRAM COMPLETE Observed: 01/28/2018 Status: F Source: [place] 7:11 PM [facility] REPOSITORY [facility] Cardiovascular Services [address] [place] [address] Echo Complete 01/28/18 1346 MR#: [id number] Acct: [id number] Name: ANDIE HAMMOND Rep #: [id number] : 1960 57 From: Sg Garcia MD Attending Dr: Maye White MD Status: REG CLI Ordering Dr: Maye White MD Date: 01/28/18 Location: [facility] Sex: F C Admitted: Reason For Study: Murmur Procedure This was a 2D Doppler, Color Flow transthoracic echocardiogram. The exam was of adequate technical quality. Exam performed in department. Left Ventricle Normal LV size. Left ventricular systolic function is hyperdynamic. The estimated ejection fraction is 75 %. The global longitudinal strain = -20 % (normal). Transmitral doppler flow suggestive of impaired relaxation of left ventricle. No regional wall motion abnormalities noted. Right Ventricle Normal RV size. Normal systolic function. Atria The left atrium is mildly enlarged. Normal right atrium. No doppler evidence for ASD. Mitral Valve There is no mitral annular calcification. Normal mitral valve. Trivial mitral valve insufficiency. Tricuspid Valve Normal tricuspid valve. Trivial tricuspid valve insufficiency. Right ventricular systolic pressure estimated to be 27 mmHg. Aortic Valve Trisinus/trileaflet aortic valve. Normal aortic valve. Pulmonic Valve The pulmonic valve is not well visualized. Trivial pulmonic valve insufficiency. Great Vessels Normal sized aortic root. Pericardium/Pleural No pericardial effusion. MMode/2D Measurements AND Calculations LVIDd: 4.2 cm IVSd: 1.3 cm Ao root diam: 3.4 cm LVIDs: 3.2 cm LVPWd: 1.1 cm LA dimension: 3.8 cm RVDd: 3.3 cm FS: 23.3 % LAV(MOD-sp4): 55.9 ml LVAd ap4: 21.5 cm2 SV(MOD-sp4): 28.5 ml EDV(MOD-sp4): 46.6 ml EDV(sp4-el): 46.6 ml LVAs ap4: 11.0 cm2 ESV(MOD-sp4): 18.1 ml ESV(sp4-el): 16.4 ml EF(MOD-sp4): 61.2 % EF(sp4-el): 64.9 % SV(sp4-el): 30.3 ml LA A4 area: 19.5 cm2 RA A4 area: 11.5 cm2 Time Measurements MV dec time: 0.23 sec Doppler Measurements AND Calculations MV E max stevie: 68.3 cm/sec Lat Peak E' Stevie: 8.2 cm/sec Med Peak E' Stevie: 7.4 cm/sec MV A max stevie: 94.3 cm/sec E/E' lat: 8.3 E/E' med: 9.2 MV E/A: 0.72 MV V2 max: 98.2 cm/sec MV P1/2t max stevie: 81.9 cm/sec Ao V2 max: 148.3 cm/sec MV max P.9 mmHg MV P1/2t: 62.2 msec Ao max P.8 mmHg MV V2 mean: 61.8 cm/sec Ao V2 mean: 109.0 cm/sec MV mean P.7 mmHg MV dec slope: 385.5 cm/sec2 Ao mean P.1 mmHg MV V2 VTI: 20.0 cm MVA(P1/2t): 3.5 cm2 Ao V2 VTI: 27.3 cm LV V1 max: 135.8 cm/sec PA V2 max: 132.9 cm/sec TR max stevie: 243.1 cm/sec LV V1 max P.4 mmHg TR max P.6 mmHg LV V1 mean P.5 mmHg LV V1 mean: 85.9 cm/sec LV V1 VTI: 23.9 cm Interpretation Summary Left ventricular systolic function is hyperdynamic. The estimated ejection fraction is 75 %. The global longitudinal strain = -20 % (normal). The left atrium is mildly enlarged. Trivial mitral valve insufficiency. Trivial tricuspid valve insufficiency. Trivial pulmonic valve insufficiency. Right ventricular systolic pressure estimated to be 27 mmHg. Transmitral doppler flow suggestive of impaired relaxation of left ventricle Ordering Physician: Maye White Referring Physician: Maye White Performed By: Berry Caballero RCS 01/28/181909 Date Sg Garcia MD CC: Maye White MD Date Dictated: 01/28/18 1346 Date Transcribed: 01/28/181910 Pari Mutuel Ticket Seller: Signed SCREENING MAMM (CAD), Observed: 01/02/2018 Status: F Source: [facility] 10:34 AM [facility] REPOSITORY [facility] Imaging Services [address] [place] [address] SCREENING MAMM (CAD), BIL MR#: [id number] Acct: [id number] Name: ANDIE HAMMOND Rep #: [id number] : 1960 F 57 From: Tello Mdarid MD PCP: Maye White MD Status: REG CLI Study: SCREENING MAMM (CAD), BILAT Date of Exam: 01/02/18 Exam# [id number] Ordering Dr: Drew Wrorell MD MAMMOGRAPHY - BILATERAL SCREENING REASON FOR EXAM: Female, 57 years old. Routine annual screening examination. PERTINENT HISTORY: Personal history of breast cancer. Prior left lumpectomy with radiation treatment. TECHNIQUE: Digital bilateral breast kae (3D mammographic acquisition) in the CC and MLO projections. 2-D mediolateral oblique (MLO) and craniocaudad (CC) views of both breasts were obtained. CAD: Full Field Digital Mammography with Computer Added Detection was performed. COMPARISON: Comparison is made with prior study dated November 27, 2016 and November 27, 2015. FINDINGS: Breast Composition: There are scattered areas of fibroglandular density. There are no dominant masses or suspicious calcifications. The patient is status post left lumpectomy with resultant decreased size of the left breast. Surgical clips are seen at the operative site in the deep retroareolar region. This is unchanged. No other significant abnormalities are identified. There has been no significant change since the prior study. BI/SCREENING MAMM (CAD), BILAT IMPRESSION: Stable bilateral screening mammogram. Yearly follow-up mammogram recommended. (A) ASSESSMENT CATEGORY: BIRADS Category 2: Benign. A letter regarding these results will be sent to the patient by the facility within 30 days. Approximately 10% of breast cancers are not detected by mammography. A normal mammogram should not delay biopsy of a clinically suspicious abnormality. [id number] Electronically Signed: Tello Madrid MD at 9:46 EST Tel [phone], Service support , CC: Maye White MD; Drew Worrell MD Pari Mutuel Ticket Seller: Signed SURGERY VISIT REPORT Observed: 12/15/2017 Status: F Source: [place] 2:02 PM [facility] REPOSITORY [facility] [address] [place] [address] OFFICE VISIT Date of Service: 12/15/17 MR#: [id number] Acct: [id number] Name: ANDIE HAMMOND Rep #: [id number] : 1960 Provider: Julio Jamison MD Age/Sex: 56/F Location: [facility] Status: Signed Intake Intake Visit Reasons: f/u appy 12/03/17 Chief Complaint: ABOMINAL PAIN Allergies No Known Allergies Allergy (Verified 12/15/17 13:36) Medications Amlodipine Besylate [Norvasc] 5 mg PO DAILY 12/01/16 [History Confirmed 12/15/17] Escitalopram Oxalate [Lexapro] 20 mg PO DAILY 12/01/16 [History Confirmed 12/15/17] Pravastatin Sodium [Pravachol] 10 mg PO DAILY 12/01/16 [History Confirmed 12/15/17] Docusate Sodium [Colace] 100 mg PO BID cap 12/04/17 [Rx Confirmed 12/15/17] omeprazole 10 mg capsule,delayed release 10 mg PO DAILY #30 cap 12/15/17 [Rx Confirmed 12/15/17] Subjective Details: The patient reports she is not having any abdominal pain but she is having some acid reflux. She has been on a lot of [id number] antacids which are not helping. She reports she is having normal bowel movements and having normal flatus. She is not having any nausea or vomiting. She denies any fevers or chills. Objective Details: Patient's abdomen is soft, nontender, nondistended. Her incisions are healing well with no erythema or ecchymosis. Assessment AND Plan 1. Acute appendicitis, unspecified acute appendicitis type K35.80 Plan 1. Patient is doing well after appendectomy. She can resume full activity as of December 21 and return to work. 2. GERD (gastroesophageal reflux disease) K21.9 Plan Patient reports she has been having a lot of acid reflux since surgery. I will give her a month supply of omeprazole. She will follow-up in 2 weeks to see how it is doing. Julio Jamison MD Pager: [facility] [address] [place] [address], [address] [place] [address] Office: Plan Detail Other Medications New: Coding Level of Care Code Global Post Op Diagnoses Acute appendicitis, unspecified acute appendicitis type K35.80 Acute appendicitis type: unspecified acute appendicitis type GERD (gastroesophageal reflux disease) K21.9 12/15/17 1402 <Electronically signed by Julio Jamison MD> Date Julio Jamison MD Cosigner Signature: Date (if applicable) CC: Maye White MD DISCHARGE SUMMARY Observed: 12/04/2017 Status: F Source: [place] 12:57 PM [facility] REPOSITORY [facility] Medical Records Department [address] [place] [address] [place] [address] Discharge Summary 12/03/17 1618 MR#: [id number] Acct: [id number] Name: ANDIE HAMMOND Rep #: [id number] : 1960 56 From: Julio Jamison MD PCP: Maye White MD Status: DIS DINAH Y Location: [place] [address]-1 Discharge Date and Diagnosis Date of Admission: 12/03/17 Date of Discharge: 12/04/17 - Primary Discharge Diagnosis Active and Suspected Problems Acute appendicitis (Acute) Hospital Course and Treatment Imaging Results: 12/03/17 09:40 Abdomen/Pelvis without Cont [CT] Stat 12/03/17 11:04 CT Abd [Abdomen/Pelvis WITH Contrast] [CT] Stat Clinical Impression(s) from Imaging Studies Abdomen/Pelvis CT 12/03/17 09:40 IMPRESSION: Colon diverticulosis. 2 mm stone in the right kidney without hydronephrosis. Electronically Signed: Corina Elliott MD at 10:59 EDT Tel , Service support , Abdomen/Pelvis CT 12/03/17 11:04 IMPRESSION: Acute appendicitis. Electronically Signed: Corina Elliott MD at 13:07 EDT Tel , Service support , Operations: appendectomy Procedures: None Summary of Care Provided: The patient is a 56 year old F who presented with RLQ pain. CT confirmed acute appendicitis and she was taken immediately for laparoscopic appendectomy. She tolerated surgery well and was admitted for observation. The following day she was tolerating a diet and doing well. She was discharged home. Discharge Diet: Light diet - advance as tolerated Discharge Activity: Return to Normal Activity, May Shower Call your doctor if your incision/area has: Continuous Slow Oozing, Sudden Increased Bleeding, Increased Pain/ Swelling, Increased Redness, Foul Smelling Discharge, Swelling at the incision site Call your doctor if you observe: Fever of 101 or Higher Home Medications: Medications to take at Discharge Amlodipine Besylate [Norvasc] 5 mg PO DAILY 12/01/16 Escitalopram Oxalate [Lexapro] 20 mg PO DAILY 12/01/16 Pravastatin Sodium [Pravachol] 10 mg PO DAILY 12/01/16 Docusate Sodium [Colace] 100 mg PO BID capsule 12/04/17 Hydrocodone Bitart/Apap 5-325 [[place] 5/325] 1 - 2 tablet PO Q4H PRN PRN 7 Days #30 tablet 12/04/17 Following Prescrptions Were Given to Patient: Hydrocodone Bitart/Apap 5-325 [[place] 5/325] 1 - 2 tablet PO Q4H PRN PRN 7 Days #30 tablet PRN Reason: Severe Pain (-12/09) Primary Care Physician: Maye White MD [Primary Care Provider] - Please Follow Up With: Julio Jamison MD Medical Necessity - Tobacco Use Smoking Status: Current every day smoker Meaningful Use Info Meaningful Use Diagnoses (Choose all that apply): None applicable 12/04/17 1257 <Electronically signed by Julio Jamison MD> Date Julio Jamison MD Cosigner Signature (if applicable): Date CC: Julio Jamison MD; Maye White MD Signed DISCHARGE INSTRUCTION Observed: 12/04/2017 Status: F Source: [place] 6:50 AM [facility] REPOSITORY [facility] Medical Records Department [address] [place] [address] Instructions for Home/Discharge Instructions 12/04/17 0649 MR#: [id number] Acct: [id number] Name: ANDIE HAMMOND Rep #: [id number] : 1960 56 From: Julio Jamison MD PCP: Maye White MD Status: REG [facility] Discharge Diet: Light diet - advance as tolerated Discharge Activity: May Not Drive - for 3-5 days or while taking narcotic pain meds., May Shower Call your doctor if your incision/area has: Continuous Slow Oozing, Sudden Increased Bleeding, Increased Pain/ Swelling, Increased Redness, Foul Smelling Discharge Call your doctor if you observe: Fever of 101 or Higher Suture Line Care: Avoid Pulling/Pushing, Avoid Pinching/Bending Additional Dressing/Incision Instructions:: Keep dressing clean and dry. Change or remove dressing in 2 days. Leave steri strips for 1 week. May protect with a gauze bandaid. Medications to take at Discharge Amlodipine Besylate [Norvasc] 5 mg PO DAILY 12/01/16 Escitalopram Oxalate [Lexapro] 20 mg PO DAILY 12/01/16 Pravastatin Sodium [Pravachol] 10 mg PO DAILY 12/01/16 Docusate Sodium [Colace] 100 mg PO BID capsule 12/04/17 Hydrocodone Bitart/Apap 5-325 [[place] 5/325] 1 - 2 tablet PO Q4H PRN PRN 7 Days #30 tablet 12/04/17 Allergies/Adverse Reactions: Allergies No Known Allergies Allergy (Unverified 12/03/17 09:29) The following prescriptions were given: Hydrocodone Bitart/Apap 5-325 [[place] 5/325] 1 - 2 tablet PO Q4H PRN PRN 7 Days #30 tablet PRN Reason: Severe Pain (6-12/09) Primary Care Physician: Maye White MD [Primary Care Provider] - Test Results: Test results from this visit will be discussed in further detail at your follow-up appointment, if applicable. Please Follow Up With: Julio Jamison MD When: Please call to schedule 2 week follow up appointment. [phone] 12/04/17 0650 <Electronically signed by Julio Jamison MD> Date Julio Jamison MD CC: Maye White MD OPERATIVE REPORT Observed: 12/03/2017 Status: F Source: [place] 4:13 PM [facility] REPOSITORY [facility] Medical Records Department [address] [place] [address] Operative Report 12/03/17 1612 MR#: [id number] Acct: [id number] Name: ANDIE HAMMOND Rep #: [id number] : 1960 56 From: Julio Jamison MD PCP: Maye White MD Status: [employer] Y Location: [place] [address] Problem List (1) Acute appendicitis Status: Acute Qualifiers: Acute appendicitis type: unspecified acute appendicitis type Qualified Code(s): K35.80 - Unspecified acute appendicitis Report of Operation Date of Procedure: 12/03/17 Pre-Operative Diagnosis: Acute appendicitis Post-Operative Diagnosis: Same Surgery/Procedure Performed:: Laparoscopic appendectomy Specimen's removed: Appendix Description of Procedure: The patient was brought into the operating room and general anesthesia was induced. The left arm was tucked and the abdomen was prepped and draped in usual sterile fashion. A small midline incision was made superior to the umbilicus and deepened to the level of the fascia. The fascia was elevated and incised. The peritoneum was also elevated and incised. A finger sweep was performed and a balloon trocar was placed into the abdomen and inflated. The abdomen was insufflated to 15 mmHg and the camera was inserted and the abdomen was inspected for any injuries upon entering the abdomen. There were none. There were dense adhesions in the superior abdomen adjacent to the umbilical trocar. The patient was placed in Trendelenburg position and a 5 mm ports placed in the left lower quadrant and suprapubic areas under direct visualization. Adhesions to the abdominal wall were taken down bluntly with a grasper. Next using atraumatic bowel graspers the appendix was identified. The appendix was grasped and elevated and a harmonic scalpel was used to take down the mesoappendix. A stapler was used to come across the base of the appendix. The appendix was then placed in Endo Catch bag and removed through the umbilical incision. The staple line was inspected and found to be hemostatic and intact. The 2 5 mm ports are removed under direct visualization. The balloon trocar was deflated and removed and all the air was removed from the abdomen. The umbilical incision fascia was closed with an 0 Vicryl [id number] suture. The incisions were then irrigated with saline and dried. Local anesthetic was injected into the incision sites. The skin incisions were then closed with interrupted 4-0 Monocryl suture and Steri-Strips. Bandages were applied and the patient was awoken and taken to PACU in stable condition. Patient tolerated the procedure well. 12/03/17 1613 <Electronically signed by Julio Jamison MD> Date Julio Jamison MD CC: Julio Jamison MD; Maye White MD Signed HISTORY AND PHYSICAL Observed: 12/03/2017 Status: F Source: [place] EXAM 2:44 PM [facility] REPOSITORY [facility] Medical Records Department [address] [place] [address] History and Physical 12/03/17 1439 MR#: [id number] Acct: [id number] Name: ANDIE HAMMOND Rep #: [id number] : 1960 56 From: Juloi Jamison MD PCP: Maye White MD [place] [facility] [place] [facility]01-1 Problem List (1) Acute appendicitis Status: Acute Qualifiers: Acute appendicitis type: unspecified acute appendicitis type Qualified Code(s): K35.80 - Unspecified acute appendicitis History of Present Illness Date of Admission: 12/03/17 The patient is a 56 year old F who reports that she was having right lower quadrant pain that started this morning. She does have associated nausea vomiting. She says that the pain was getting worse until she got pain medication and out feels better. Past Medical History Allergies No Known Allergies Allergy (Unverified 12/03/17 09:29) Home Medications: Ambulatory Orders Medication Instructions Recorded Surgical History: cholecystectomy, - - Hysterectomy, tubal ligation Smoking Status: Current every day smoker - *Family History Maternal History Items: No pertinent history Review of Systems Constitutional: Reports: Anorexia. Denies: Chills HEENT: Denies: Difficulty Hearing Cardiovascular: Denies: Chest Pain Respiratory: Denies: Cough, Shortness of Breath Gastrointestinal: Reports: Abdominal Pain, Nausea, Vomiting. Denies: Hematemesis, Hematochezia Genitourinary: Denies: Dysuria Musculoskeletal: Denies: Joint Tenderness Skin: Denies: Dryness, Jaundice Psychiatric: Denies: Anxiety Hematologic/ Lymphatic: Denies: Anemia VTE Information - Inpt Only VTE Present on Admission: No VTE Mechan Device Prophylaxis: SCD's Patient Problems: Active and Suspected Problems Acute appendicitis (Acute) - Physical Exam General: Alert, Oriented x3 HEENT: PERRLA, EOMI Neck: Supple, No JVD Lungs: Normal air movement Cardiovascular: Regular rate, Regular Rhythm Abdomen: Soft, Non-Distended, Tender - Right lower quadrant with no guarding or rebound Extremities: No clubbing Skin: No rashes Musculoskeletal: No Muscle Wasting Neurological: Cranial nerves II-XII grossly intact Psych/Mental Status: Normal Affect, Appropriate Vital Signs Temp Pulse Resp BP Pulse Ox 97.9 F 75 16 158/85 H 97 12/03/17 14:17 12/03/17 14:17 12/03/17 14:17 12/03/17 14:17 12/03/17 14:17 Oxygen Delivery Method Room Air Weight: 200 lb Body Mass Index (BMI) 32.3 Laboratory Tests Past 24 Hrs WBC 14.7 H RBC 4.83 Hgb 15.4 H Hct 45.6 MCV 94.4 MCH 31.9 WBC RBC Hgb Hct MCV MCH MCHC RDW RDW Differential Clinical Impression(s) from Imaging Studies Abdomen/Pelvis CT 12/03/17 09:40 IMPRESSION: Colon diverticulosis. 2 mm stone in the right kidney without hydronephrosis. Electronically Signed: Corina Elliott MD at 10:59 EDT Tel , Service support , Abdomen/Pelvis CT 12/03/17 11:04 IMPRESSION: Acute appendicitis. Electronically Signed: Corina [place] MD at 13:07 EDT Tel , Service support , Assessment/Plan All Active Problems Acute appendicitis (Acute) Ductal carcinoma in situ (DCIS) of left breast (Resolved) 56-year-old female with acute appendicitis 1. The patient has acute appendicitis based on her right lower quadrant pain and leukocytosis and CT scan findings. I described laparoscopic appendectomy to the patient including the risks of bleeding, infection, bowel injury, bladder injury. The patient wishes to proceed with surgery. The patient has been given antibiotics in the ER. Julio Jamison MD Pager: [facility] [address] [place] [address] Office: 12/03/17 144 <Electronically signed by Julio Jamison MD> Date Julio Jamison MD Cosigner Signature: Date (if applicable) CC: Julio Jamison MD; Maye White MD Signed EMERGENCY DEPARTMENT Observed: 12/03/2017 Status: F Source: [place] SUMMARY 2:04 PM [facility] REPOSITORY [facility] Medical Records Department [address] [place] [address] Emergency Department Summary 12/03/17 1402 MR#: [id number] Acct: [id number] Name: ANDIE HAMMOND Rep #: [id number] : 1960 56 From: Reymundo Beaver DO PCP: Maye White MD Status: REG ER - ER Visit Summary Date of Service: 12/03/17 Chief Complaint: [Abdominal pain] History of Present Illness: The patient is a 56 F [presents the emergency department complaint of abdominal pain that started around 5 AM. Patient describes it as epigastric and right-sided. Patient rates her pain currently as a 4 out of 10 but was much worse at home. Patient states that yesterday she had several episodes of watery stool. Patient denies any nausea or vomiting. She denies any fever. She denies urinary symptoms. She has had no recent travel or recent antibiotic usage. Patient does state that she frequently does get diarrhea so she was not to concerned about the diarrhea yesterday. Patient has a history of hypertension and high cholesterol. Prior surgical history includes cholecystectomy and hysterectomy as well as a lumpectomy.] Physical Examination: [HEENT-PERRLA, EOMI. Cranial nerves II through XII grossly intact. TMs clear. Mucous membranes moist. No adenopathy. Cardiovascular-regular rate and rhythm without murmur or ectopy Lungs-clear to auscultation, chest wall stable without crepitus or subcu emphysema Abdomen-normoactive bowel sounds, soft. Patient has tenderness palpation over the epigastric region as well as the right lower quadrant over McBurney's point. Patient does not have rebound, rigidity, or perineal signs. Extremities-intact 4, normal range of motion, normal pulses, atraumatic] Test Results: [CBC with differential obtained showed a white blood cell count of 14.7, hemoglobin 15, hematocrit 46, platelets 249. Chemistries unremarkable. Liver enzymes were normal. Lipase was normal. Urinalysis was normal. CT flank initially without contrast was obtained and there was nonvisualization of the appendix. Patient was given p.o. contrast as well as IV contrast and a repeat CAT scan was obtained which does show a tubular structure in the right lower quadrant consistent with acute appendicitis.] Emergency Department Course and Treatment: [Patient case was discussed with Dr. Jamison who will evaluate patient in the emergency department. Patient was started on Zosyn at the request of the surgeon.] Treatment Plan: [Admit for operative intervention of acute appendicitis] Disposition: [Admit] Impression: [Abdominal pain Acute appendicitis] This note was generated with Topioation software. It may contain incorrect words, spelling, and punctuation that were not noted in review of the chart prior to signing ED Disposition - Plan for ED Patient: Chief Complaint: Abd Pain Referrals: Maye White MD [Primary Care Provider] - What to do if you have Problems For any increased pain, shortness of breath, bleeding, nausea or vomiting, chest pain, or any unexpected problems, contact your Primary Care Provider. Call [facility] ([phone]) or report to the closest Emergency Room. Call 911 if necessary. 12/03/17 1404 <Electronically signed by Reymundo Beaver DO> Date Reymundo Beaver DO Cosigner Signature (If Indicated): Date CC: Maye White MD Observed: 12/03/2017 Status: F Source: [place] ENTERIC PATHOGEN 11:42 AM [facility] PANEL STOOL REPOSITORY Order Date: 12/03/17 Has pt arrived? Y EP PANEL STOOL Normal Reference Range = Not Detected Not detected for Campylobacter group, Salmonella species, Shigella species, Vibrio Group, Yersinia enterocolitica, EHEC (Shiga Toxin 1, Shiga Toxin 2), Norovirus Gl/Gll, and Rotavirus A. Other common stool pathogens are not detected on this panel include: Aeromonas/Plesiomonas or parasites. Order testing for these organisms separately if suspected. This is an amplified DNA test which makes it both specific and sensitive. CAMPYLOBACTER Not Detected Salmonella Not Detected Shigella sp. Not Detected Shiga Toxin Not Detected Yersinia Not Detected VIBRIO Not Detected Norovirus Not Detected Rotavirus Not Detected Performed By: #### M100.637 #### [facility] [address] [facility] [place], [place], [address] ABDOMEN/PELVIS WITH Observed: 12/03/2017 Status: F Source: [place] CONTRAST 11:04 AM [facility] REPOSITORY [facility] Imaging Services [address] [place] [address] Abdomen/Pelvis WITH Contrast MR#: [id number] Acct: [id number] Name: ANDIE HAMMOND Rep #: [id number] : 1960 F 56 From: Corina Elliott MD PCP: Maye White MD Status: REG ER Study: Abdomen/Pelvis WITH Contrast Date of Exam: 12/03/17 Exam# [id number] Ordering Dr: Reymundo Beaver DO STUDY: CT ABDOMEN WITH CONTRAST REASON FOR EXAM: Female, 56 years old. Right lower quadrant pain. RADIATION DOSAGE (If Supplied By Facility): CTDIvol = ( 18.62 ) mGy, DLP = ( 1268.25 ) mGycm TECHNIQUE: Transaxial images were obtained post I.V. administration of 100 ml of Isovue 300 contrast, and oral contrast. Sagittal and coronal images were reconstructed. Individualized dose optimization techniques were used for this CT. COMPARISON: None. FINDINGS: The visualized lung bases are unremarkable. The visualized portions of the heart are within normal limits. Normal liver. There is non-visualization of the gallbladder, which may be secondary to either contraction or a prior cholecystectomy. Normal spleen. Normal pancreas. Normal bilateral adrenal glands. There is a stone in the right kidney measures 2 mm without hydronephrosis. Normal left kidney. Normal visualized stomach. Normal small intestine. There are multiple colonic diverticula consistent with diverticulosis. There is a tubular, thick-walled appendix (>7mm), consistent with acute appendicitis. Normal abdominal aorta. Normal inferior vena cava. Normal retroperitoneum. Normal abdominal wall. Normal osseous structures. CT/Abdomen/Pelvis WITH Contrast IMPRESSION: Acute appendicitis. Electronically Signed: Corina Elliott MD at 13:07 EDT Tel , Service support , CC: Maye White MD; Reymundo Beaver DO [employer] Ticket Seller: Signed URINALYSIS, COMPLETE Collected: 12/03/2017 Status: F Source: [place] 10:30 AM [facility] REPOSITORY Order Comment: Order Date: 12/03/17 Has pt arrived? Y How was Urine Obtained? CLEAN CATCH TYPE CODE TESTS RESULT OUT OF RANGE REFERENCE UNITS LAB L400.3000 Yellow COLOR Normal Yellow LAB L400.3050 Clear Normal CLARITY Sl. Cloudy LAB L400.3200 Normal mg/dl Normal GLUCOSE, UR Normal LAB L400.3300 Negative mg/dL Normal BILIRUBIN URINE Negative LAB L400.3400 Negative mg/dl Normal KETONE UR Negative LAB L400.3465 1.002-1.030 Normal SP.GR. DIPSTX 1.020 LAB L400.3550 5.0 - 8.0 pH UR Normal 6.0 LAB L400.3600 Negative mg/dl High PROT 15 DIPSTX LAB L400.3700 Normal mg/dl Normal UROBILI Normal LAB L400.3750 Negative Normal NITRITE UR Negative LAB L400.3780 Negative /ul High 50 OCCULT BLOOD-UR LAB L400.3800 Negative /ul High LEUK 25 ESTERASE LAB L400.4050 0-5 /hpf WBC Normal 0-5 SEEN LAB L400.4100 0-5 /hpf 0 Normal RBC-UA SEEN LAB L400.4150 5-10 /hpf SQUAM Normal EPI 0-5 SEEN LAB L400.4300 None Seen /hpf 1+ Normal BACTERIA LAB L400.4350 <or=2+ /hpf Normal MUCUS, URINE RARE Performed By: #### L400.0001 #### [facility] [address] [place], [address] CBC W/DIFF, AUTOMATED Collected: 12/03/2017 Status: F Source: [place] 10:00 AM [facility] REPOSITORY TYPE CODE TESTS RESULT OUT OF RANGE REFERENCE UNITS LAB L100.1000 4.4-11.0 K/mm3 High WBC 14.7 LAB L100.1200 4.2-5.4 M/mm3 Normal RBC 4.83 LAB L100.1300 12.0-15.0 g/dl High HGB 15.4 LAB L100.1400 37-47 % Normal HCT 45.6 LAB L100.1500 81-99 fL Normal MCV 94.4 LAB L100.1600 27.0-32.0 pg Normal MCH 31.9 LAB L100.1700 32-36 g/gl Normal MCHC 33.8 LAB L100.1810 11.6-14.6 % Normal RDW CV 13.0 LAB L100.1820 35.1-43.9 fl High RDW SD 44.8 LAB L100.1900 150-450 K/mm3 Normal PLT 249 LAB L100.2000 6.2-12.0 fl Normal MPV 10.4 LAB L100.2100 47-70 % High NEUT% 76.9 LAB L100.2200 19-41 % Low LY% 15.9 LAB L100.2300 0-10 % Normal MONO% 6.1 LAB L100.2400 0-5 % Normal EO% 0.7 LAB L100.2500 0-1 % Normal BASO% 0.1 LAB L100.2550 0.0-0.9 % Normal IM GRAN % 0.300 Result Comment: IG% - Immature Granulocytes (promyelocytes, myelocytes and metamyelocytes) > 1% indicates that a LEFT SHIFT is Present. LAB L100.2620 2.0-7.7 X10 3/uL High Absolute Neut 11.3 LAB L100.2720 0.83-4.51 X10 3/ul Normal Absolute Lymph 2.34 Performed By: #### L100.0100 #### [facility] [address] [place], [place], [address] COMPREHENSIVE METABOLIC Collected: 12/03/2017 Status: F Source: [facility] 10:00 AM [facility] REPOSITORY TYPE CODE TESTS RESULT OUT OF RANGE REFERENCE UNITS LAB L501.0100 74-106 mg/dL Normal GLU 103 Result Comment: Fasting Glucose result from 100 to 125 mg/dL suggests IMPAIRED HOMEOSTASIS per A.D.A. criteria. Please note revised GLUCOSE reference range effective 2017. LAB L501.1000 7-18 mg/dL Normal BUN 16 LAB L501.1100 0.55-1.02 mg/dL Normal CREAT,SERUM 0.61 Result Comment: The validity of the calculated GFR AND GFRAA in patients over 70 years has not been determined. Clinical correlation is essential. LAB L501.1110 >60 mL/min Normal EST GFR 107 Result Comment: Non- GFR Calc LAB L501.1115 >60 mL/min Normal EST GFR - AA 130 Result Comment: GFR Calc LAB L501.1255 ml/min Normal Estimated CRCL 97.55 LAB L501.1300 10-20 RATIO High BUN/CRE 26.1 LAB L501.1500 6.4-8. g/dL Normal 2 T PROT 7.9 LAB L501.1800 3.2-5. g/dL Normal 0 ALB 4.0 LAB L501.1950 2.2-4. g/dL Normal 2 GLOB 3.9 LAB L501.2000 0.9-2. RATIO Normal 4 A/G 1.0 LAB L501.2200 8.5-10 mg/dL Normal .1 CA 9.0 LAB L501.4100 15-37 U/L Normal AST 18 LAB L501.4305 45-117 U/L Normal ALK P 80 LAB L501.4405 13-56 U/L Normal ALT 35 LAB L501.4600 0.20-1 mg/dL Normal .00 T BILI 0.30 LAB L501.5300 136-14 mmol/L Normal 5 NA 138 LAB L501.5600 3.5-5. mmol/L Normal 1 K 4.0 LAB L501.5900 98-107 mmol/L Normal CL 106 LAB L501.6100 21.0-3 mmol/L Normal 2.0 CO2 24.0 LAB L501.6200 5-15 Normal GAP 8 Performed By: #### L500.4050, L501.2450 #### [facility] [address] [place], [place], [address] LIPASE Collected: 12/03/2017 Status: F Source: [place] 10:00 AM [facility] REPOSITORY TYPE CODE TESTS RESULT OUT OF RANGE REFERENCE UNITS LAB L501.2450 73-393 U/L Normal LIPASE 102 Performed By: #### L500.4050, L501.2450 #### [facility] [address] [place], [place], [address] LACTIC ACID Collected: 12/03/2017 Status: F Source: [place] 10:00 AM [facility] REPOSITORY Order Comment: Yes/No query for Sepsis Lactate Rule Y TYPE CODE TESTS RESULT OUT OF RANGE REFERENCE UNITS LAB L503.6005 0.4-2.0 mmol/L Normal LACTIC ACID 1.8 Performed By: #### L503.6005 #### [facility] [address] [place], [address] ABDOMEN/PELVIS WITHOUT Observed: 12/03/2017 Status: F Source: [place] CONT 9:42 AM [facility] REPOSITORY [facility] Imaging Services [address] [address] Abdomen/Pelvis without Cont MR#: [id number] Acct: [id number] Name: ANDIE HAMMOND Rep #: [id number] : 1960 F 56 From: Corina Elliott MD PCP: Christopher PHOENIX,Maye Status: REG ER Study: Abdomen/Pelvis without Cont Date of Exam: 12/03/17 Exam# [id number] Ordering Dr: Reymundo Beaver DO STUDY: CT ABDOMEN AND PELVIS WITHOUT CONTRAST REASON FOR EXAM: Female, 56 years old. Right lower quadrant pain. Diarrhea RADIATION DOSAGE (If Supplied By Facility): CTDIvol = ( 19.39 ) mGy, DLP = ( 1056.35 ) mGycm TECHNIQUE: Transaxial images were obtained from the dome of the diaphragm to the symphysis pubis without oral contrast, and without intravenous contrast. Sagittal and coronal images were reconstructed. Individualized dose optimization techniques were used for this CT. COMPARISON: None. FINDINGS: The visualized lung bases are unremarkable. The visualized portions of the heart are within normal limits. Normal liver. There is non-visualization of the gallbladder, which may be secondary to either contraction or a prior cholecystectomy. Normal spleen. Normal pancreas. Normal bilateral adrenal glands. There is a stone in the right kidney measures 2 mm without hydronephrosis. Normal left kidney. Normal visualized stomach. Normal small intestine. There are multiple colonic diverticula consistent with diverticulosis. There is non-visualization of the appendix. Normal abdominal aorta. Normal inferior vena cava. Normal retroperitoneum. Normal urinary bladder. Normal abdominal wall. Normal osseous structures. CT/Abdomen/Pelvis without Cont IMPRESSION: Colon diverticulosis. 2 mm stone in the right kidney without hydronephrosis. Electronically Signed: Corina [place] MD at 10:59 EDT Tel , Service support , CC: Maye White MD; Reymundo Beaver DO [employer] Ticket Seller: Signed APPENDIX Observed: 12/03/2017 Status: F Source: [place] 7:35 AM [facility] REPOSITORY Patient: ANDIE HAMMOND : 1960 (56/F) Acct Num: [id number] Phys: Yaquelin PHOENIX,Julio Unit Num: [id number] Loc: MS2 [place]620-3 Specimen: [id number] Received: 12/04/17829 Spec Type: APPENDIX TISSUES 1 TISSUES: Appendix, NOS GROSS DESCRIPTION Received is one container labeled with the patient's name and designated appendix. The specimen consists of a J-shaped appendix measuring 13 cm in length and up to 2 cm in average diameter. The serosa is congested. The attached periappendiceal adipose tissue measures up to 2.5 cm in thickness. No obvious perforation is identified. The lumen contains purulent fecal material. No fecalith is identified. Manager Of Loss Prevention Operations sections are submitted in one cassette. / SJ:eduardo 12/04/17 TC:2 CPT: 04680 HEADER OPERATION: Laparoscopic appendectomy PRE-OP DIAGNOSIS: Acute appendicitis TISSUE SUBMITTED: Appendix MICROSCOPIC DESCRIPTION Slides are reviewed. MICROSCOPIC DIAGNOSIS Appendix, appendectomy: Acute necrotizing appendicitis. Acute serositis. AM:eduardo 12/07/17 Signed Emerson Dale 12/07/17 <signature on file> Performed By: #### NATALY #### [facility] [address] [place], [address] ALLERGIES ALLERGIES DATE TYPE / CODE NAME / CODE REACTION SEVERITY SOURCE 02/04/2018 Drug No Known Unknown [facility] Allergy/4160 Allergies/F00 Hospital 85801(SNOMED 6536966(RXNOR Repository CT) M) ENCOUNTERS ENCOUNTERS ADMIT/DISCHARGE ACCOUNT ADMITTING ENCOUNTER LOCATION SOURCE NUMBER CLASS 02/04/2018 [id number] Ambulatory BMSBuilding:B [place] 1 MS.[facility] Repository 02/04/2018 [id number] Ambulatory [place] 5 [facility] ing:OMD Repository 01/28/2018 [id number] Ambulatory [place] 4 [facility] ing:CVS Repository 01/02/2018 [id number] Ambulatory [place] 6 [facility] ing:OPBI Repository 12/15/2017/ [id number] Ambulatory BMSBuilding:B [place] 8 8 [facility] Repository 12/03/2017/ [id number] [place] Amb[place] 4 [facility] ing:HM4Goik: Repository HJ467Lgu: 1 12/03/2017 [id number] Ambulatory BMSBuilding:B [place] 6 MS.CF.[facility] Repository PAYERS PAYERS ENCOUNTER GUARANTOR PAYER SUBSCRIBER SOURCE 02/04/2018 ANDIE L Primary ANDIE L [place] [id number] Insurance:AETNAPolneftali HERNANDESB: [facility] RAADULISES, Number: [id number] [facility] [address]Bmn: [id number] Repository Date:1804-66-78Uw Box ([place]) [place] [address]HU: 02/04/2018 Secondary MAYE R [place] Insurance:MEDICAL THOMASDOB: [facility] [id number] [facility] Number: Repository [id number] Date:6120-75-16Il [address] [place] [address]UK: 02/04/2018 Tertiary NOT GIVENUNK [place] Insurance:SELF PAY [facility] Number: Effective Repository Date:2018-02-04 02/04/2018 ANDIE L Primary ANDIE L [place] [id number] Insurance:AETNAPolneftali HAMMONDDOB[facility], Number: [id number] Medical Center [address]Jwm: [id number] Repository Date:6593-84-20Ul [address] () [address]Ya [place] [address]NV: 02/04/2018 Secondary MAYE R [place] Insurance:MEDICAL THOMASDOB: [facility] [id number] Hospital Number: Repository [id number] Date:7718-00-25Cp [address] [place], [place] [address]WP: 02/04/2018 Tertiary NOT GIVENUNK [place] Insurance:SELF PAY [facility] Number: Effective Repository Date:2016-05-27 01/28/2018 ANDIE L Primary ANDIE L [place] [id number] Insurance:AETNAPolicy THOMASDOB: [facility] RAADWoo, Number: [id number] Medical Center [address]Fxq: [id number] Repository Date:2879-09-04RO [address] [place]) [place] [address]BX: 01/28/2018 Secondary MAYE R [place] Insurance:MEDICAL THOMASDOB: [facility] [id number] Hospital Number: Repository [id number] Date:1909-25-47RR [address] [place], [place] [address]WP: 01/28/2018 Tertiary NOT GIVENUNK [place] Insurance:SELF PAY [facility] Number: Effective Repository Date:2018-01-18 01/02/2018 ANDIE L Primary ANDIE L [place] [id number] Insurance:AETNAPolicy THOMASDOB: [facility] TALIA, Number: [id number] Medical Center [address]Lhs: [id number] Repository Date:2615-74-47WK [address]OX (HP) [address] [place] [address]SS: 01/02/2018 Secondary MAYE R [place] Insurance:MEDICAL THOMASDOB: [facility] [id number] Hospital Number: Repository [id number] Date:0428-45-99SW [address] [place] [address]HO: 01/02/2018 Tertiary NOT GIVENUNK [place] Insurance:SELF PAY [facility] Number: Effective Repository Date:2017-11-11 12/15/2017 ANDIE L Primary ANDIE L [place] [id number] Insurance:AETNAPolicy THOMASDOB: [facility], Number: [id number] Medical Center [address]Mxa: [id number] Repository Date:3178-07-72PD [address] () [address] [address]TU: 12/15/2017 Secondary MAYE R [place] Insurance:MEDICAL THOMASDOB: [facility] [id number] Hospital Number: Repository [id number] Date:6939-82-33DE [address] [place] [address]FZ: 12/15/2017 Tertiary NOT GIVENUNK [place] Insurance:SELF PAY [facility] Number: Effective Repository Date:2017-12-15 12/03/2017 ANDIE L Primary ANDIE L [place] [id number] Insurance:AETNAPolicy [facility], Number: [id number] Medical Center [address]Efs: [id number] Repository Date:5483-53-04JK [address] [place]) [place] [address]IW: 12/03/2017 Secondary MAYE R [place] Insurance:MEDICAL THOMASDOB: [facility] [id number] Hospital Number: Repository [id number] Date:4967-86-68DL [address] [place] [address]UY: 12/03/2017 Tertiary NOT GIVENUNK [place] Insurance:SELF PAY [facility] Number: Effective Repository Date:2017-12-03 12/03/2017 ANDIE L Primary ANDIE L [place] [id number] Insurance:AETNAWilberty THOMASDOB: [facility] TALIA, Number: [id number] Medical Center [address]Zfi: [id number] Repository Date:7224-63-10AT [address] (YN) [id number] [address]ES: 12/03/2017 Secondary Maye R [place] Insurance:MEDICAL ThomasDOB: [facility] [id number] [facility] Number: Repository [id number] Date:[id number] [address]OJ: 12/03/2017 Tertiary NOT GIVENUNK [place] Insurance:SELF PAY [facility] Number: Effective Repository Date:2017-12-03
== END ==
PROVIDERS: Family Provider Family Medicine; PCP Family Medicine; Referring Provider Family Medicine; Visit Provider Family Medicine
DX: R01.1 Cardiac murmur, unspecified (principal)
CPT/HCPCS: 93306

== ENCOUNTER → 2019-01-03 14:33 | Outpatient (CLI) | payer BC, SELFPAY ==
[2018-02-04 16:15] VITALS: BMI 34.2
--- NOTE | 2019-01-03 14:39 | BI_ITS ---
MAMMOGRAPHY - BILATERAL SCREENING REASON FOR EXAM: Female, 58 years old. Routine annual screening examination. PERTINENT HISTORY: Personal history of breast cancer. Prior left lumpectomy with radiation treatment. TECHNIQUE: Digital bilateral breast leatha (3D mammographic acquisition) in the CC and MLO projections. 2-D mediolateral oblique (MLO) and craniocaudad (CC) views of both breasts were obtained. CAD: Full Field Digital Mammography with Computer Added Detection was performed. COMPARISON: Comparison is made with prior examination dated January 02, 2018 and November 27, 2006. FINDINGS: Breast Composition: There are scattered areas of fibroglandular density. There are no dominant masses or suspicious calcifications. Once again, the patient is status post lumpectomy in the central portion of the left breast. This is unchanged. Stable thickening of the periareolar region. No other significant abnormalities are identified. There has been no significant change since the prior study. BI/SCREEN MAMM (CAD) W/LEATHA BILAT IMPRESSION: Stable bilateral screening mammogram. Yearly follow-up mammogram recommended. (A) ASSESSMENT CATEGORY: BIRADS Category 2: Benign. A letter regarding these results will be sent to the patient by the facility within 30 days. Approximately 10% of breast cancers are not detected by mammography. A normal mammogram should not delay biopsy of a clinically suspicious abnormality. [id number] Electronically Signed: Tello Madrid, at 15:41 EST , Service support ,
== END ==
PROVIDERS: Family Provider Family Medicine; PCP Family Medicine; Referring Provider Internal Medicine Medical Oncology; Visit Provider Internal Medicine Medical Oncology
DX: Z12.31 Encounter for screening mammogram for malignant neoplasm of breast (principal); Z85.3 Personal history of malignant neoplasm of breast
CPT/HCPCS: 77063; 77067

== ENCOUNTER → 2019-07-29 11:59 | Outpatient (CLI) | payer BC, SELFPAY ==
[2019-02-03 14:29] VITALS: BMI 77.5
[2019-07-29 15:30] LABS: Absolute Lymphocyte Count 2.99 X10^3/uL (0.83-4.51); Basophil# 0.04 X10^3/uL; Basophil% 0.4 % (0-1); Eosinophil# 0.22 X10^3/uL; Eosinophils% 2.1 % (0-5); Hematocrit 44.1 % (37-47); Hemoglobin 14.5 g/dL (12.0-15.0); Lymphocyte # 2.99 X10^3/ul (4.0); Lymphocyte % 29.2 % (19-41); Mean Corp Hgb Conc 32.9 g/dL (32-36); Mean Corpuscular Hgb 31.9 pg (27.0-32.0); Mean Corpuscular Volume 96.9 fL (81-99); Mean Platelet Vol. 10.9 fl (6.2-12.0); Monocyte# 0.93 X10^3/uL; Monocyte% 9.1 % (0-10); NRBC Flagged by Analyzer 0 % (0-5); Neutrophil # 6.01 X10^3/uL (2.7-7.7); Neutrophil % 58.7 % (47-70); Platelet Count 328 K/mm3 (150-450); RBC Distribution Width CV 13.2 % (11.6-14.6); RBC Distribution Width SD 47.5 fl (35.1-43.9); Red Blood Count 4.55 M/mm3 (4.2-5.4); White Blood Count 10.2 K/mm3 (4.4-11.0)
[2019-07-29 15:46] LABS: Hemoglobin A1c 5.4 % (3.8-5.6)
[2019-07-29 15:50] LABS: AST(SGOT) 22 U/L (15-37); Alanine Aminotransfer ALT/SGPT 40 U/L (13-56); Albumin, Serum 3.8 g/dL (3.2-5.0); Alkaline Phosphatase 74 U/L (45-117); Anion Gap 5 (5-15); BUN 14 mg/dL (7-18); BUN/Creat Ratio 26.4 RATIO (10-20); Calcium,Total 9.7 mg/dL (8.5-10.1); Chloride 106 mmol/L (98-107); Creatinine, Serum 0.53 mg/dL (0.55-1.02); EST Glomerular Filtration Rate 126 mL/min (>60); Est Glom Filt Rate - Afr Amer 152 mL/min (>60); Globulin 3.9 g/dL (2.2-4.2); Glucose 73 mg/dL (74-106); Potassium 4.3 mmol/L (3.5-5.1); Protein, Total 7.7 g/dL (6.4-8.2); Sodium Level 138 mmol/L (136-145); Thyroid Stim Hormone (TSH) 2.47 uIU/mL (0.358-3.74)
== END ==
PROVIDERS: PCP Family Medicine; Referring Provider Family Medicine; Visit Provider Family Medicine
DX: R63.5 Abnormal weight gain (principal)
CPT/HCPCS: 36415; 80053; 83036; 84443; 85025

== ENCOUNTER → 2020-01-05 09:45 | Outpatient (CLI) | payer BC, SELFPAY ==
[2019-02-03 14:29] VITALS: BMI 77.5
--- NOTE | 2020-01-05 09:45 | BI_ITS ---
MAMMOGRAPHY - BILATERAL SCREENING REASON FOR EXAM: Female, 59 years old. Routine annual screening examination. PERTINENT HISTORY: Personal history of breast cancer. Prior left lumpectomy with radiation treatment. TECHNIQUE: Digital bilateral breast leatha (3D mammographic acquisition) in the CC and MLO projections. 2-D mediolateral oblique (MLO) and craniocaudad (CC) views of both breasts were obtained. CAD: Full Field Digital Mammography with Computer Added Detection was performed. COMPARISON: Comparison is made with prior study dated 01/03/2019 and 01/02/2018. FINDINGS: Breast Composition: There are scattered areas of fibroglandular density. There are no dominant masses or suspicious calcifications. Once again, the patient status post lumpectomy in the central aspect of the left breast. Postoperative changes are stable. No other significant abnormalities are identified. There has been no significant change since the prior study. BI/SCREEN MAMM (CAD) W/LEATHA BILAT IMPRESSION: Stable bilateral screening mammogram. Yearly follow-up mammogram recommended. (A) ASSESSMENT CATEGORY: BIRADS Category 2: Benign. A letter regarding these results will be sent to the patient by the facility within 30 days. Approximately 10% of breast cancers are not detected by mammography. A normal mammogram should not delay biopsy of a clinically suspicious abnormality. [id number] Electronically Signed: Tello Madrid, at 10:55 EST , Service support ,
== END ==
PROVIDERS: PCP Family Medicine; Referring Provider Internal Medicine Medical Oncology; Visit Provider Internal Medicine Medical Oncology
DX: Z12.31 Encounter for screening mammogram for malignant neoplasm of breast (principal); Z85.3 Personal history of malignant neoplasm of breast
CPT/HCPCS: 77063; 77067

== ENCOUNTER → 2020-08-01 07:39 | Outpatient (CLI) | payer BC, SELFPAY ==
[2020-02-02 14:29] VITALS: BMI 35.5
[2020-08-01 10:29] LABS: ALB/GLOB Ratio 1.1 RATIO (0.9-2.4); AST(SGOT) 18 U/L (15-37); Alanine Aminotransfer ALT/SGPT 33 U/L (13-56); Albumin, Serum 3.9 g/dL (3.2-5.0); Alkaline Phosphatase 94 U/L (45-117); Anion Gap 8 (5-15); BUN 14 mg/dL (7-18); BUN/Creat Ratio 28.9 RATIO (10-20); Calcium,Total 9.4 mg/dL (8.5-10.1); Chloride 107 mmol/L (98-107); Cholesterol 239 mg/dL (200); Creatinine, Serum 0.48 mg/dL (0.55-1.02); EST Glomerular Filtration Rate 139 mL/min (>60); Est Glom Filt Rate - Afr Amer 168 mL/min (>60); Globulin 3.6 g/dL (2.2-4.2); Glucose 100 mg/dL (74-106); High Density Lipoprotein 73 mg/dL; Potassium 4.2 mmol/L (3.5-5.1); Protein, Total 7.5 g/dL (6.4-8.2); Sodium Level 140 mmol/L (136-145); Triglycerides 272 mg/dL; Very Low Density Lipoprotein 54 mg/dL (5-40)
== END ==
PROVIDERS: PCP Family Medicine; Referring Provider Family Medicine; Visit Provider Family Medicine
DX: E78.00 Pure hypercholesterolemia, unspecified (principal)
CPT/HCPCS: 36415; 80053; 80061

== ENCOUNTER → 2020-08-02 | Outpatient (CLI) | payer BC, SELFPAY ==
[2020-02-02 14:29] VITALS: BMI 35.5
[2020-08-02 13:44] LABS: Mucous, Urine 0 SEEN /hpf (<or=2+)
[2020-08-02 15:13] LABS: Color, Urine Yellow (Yellow); Glucose, Dipstick Normal (Normal); Ketone-Dipstick Negative (Negative); Leukocyte Esterase-Dipstick 500 /ul (Negative); Nitrite-Dipstick Negative (Negative); Occult Blood-Urine 25 /ul (Negative); Protein-Dipstick Negative (Negative); Urine Bilirubin Dipstick Negative (Negative); Urine Clarity Sl. Cloudy (Clear); Urine Urobilinogen Normal (Normal)
[2020-08-02 15:21] LABS: Bacteria 2+ /hpf (None Seen); Red Blood Cells-Urine 0-5 SEEN /hpf (0-5); Squamous Epithelial Cells - UA 0-5 SEEN /hpf (5-10); White Blood Cells 25-50 SEEN /hpf (0-5)
== END | disposition home or self-care (01) ==
LOC: LABSPEC 13:43
PROVIDERS: PCP Family Medicine; Referring Provider Family Medicine; Visit Provider Family Medicine
DX: R10.9 Unspecified abdominal pain (principal)
CPT/HCPCS: 81001; 87077; 87086; 87088; 87186

== ENCOUNTER → 2020-08-27 14:01 | Outpatient (CLI) | payer BC, SELFPAY ==
[2020-02-02 14:29] VITALS: BMI 35.5
--- NOTE | 2020-08-27 14:05 | CT_ITS ---
STUDY: LOW DOSE CT LUNG CANCER SCREENING REASON FOR EXAM: Female, 59 years old. TOBACCO USE. Patient smoked 1 pack per day for 30 years. RADIATION DOSAGE (If Supplied By Facility): CTDIvol = ( 4.02 ) mGy, DLP = ( 115.31 ) mGycm TECHNIQUE: No contrast was administered. Low dose technique was utilized (average mAS-38 and kVp 120). 1.25 mm axial source images with a slice interval of 1.25-mm were reconstructed in lung windows. 2.5 mm axial source images with a slice interval of 2.5-mm were reconstructed in lung windows. 5.0 mm axial source images with a slice interval of 5.0-mm were reconstructed in soft tissue windows. Nodule measured using lung windows on PACS and/or independent workstation with automated measurement of minimum and maximum diameter. Nodule measurement reported as average diameter rounded to the nearest whole number. Growth is defined as an increase ins size of greater than 1.5 mm. COMPARISON: None. NODULES: No suspicious nodules are seen. Emphysema: No significant emphysematous changes. Endobronchial lesion: None Aorta: Atherosclerotic calcific plaques at the level of the aortic arch. Coronary arteries: Coronary artery calcification. Heart: Unremarkable. Pulmonary artery: Unremarkable. Mediastinal nodes: Small benign-appearing mediastinal lymph nodes. Other chest and abdominal findings: CT/Low Dose CT Lung Screening IMPRESSION: Lung-RADS category 2 - Continue annual screening with LDCT in 12 months. IMPORTANT NOTES FOR USE: ACR Lung-RADS Version 1.1 Assessment Categories Release Date: 2018 Category: Coded 0-4 bases on nodule(s) with highest degree of suspicion. Negative screen is defined as categories 1 and 2; a positive screen is defined as categories 3 and 4. Category 3 and 4A nodules that are unchanged on interval CT should be coded as category 2, and individuals returned to screening in 12 months. Category 4X: Category 3 or 4 nodules with additional imaging findings that increase the suspicion of lung cancer, such as spiculation, GGN that doubles in size in 1 year, enlarged lymph notes, etc. Category Modifiers: S (significant finding unrelated to lung cancer) Electronically Signed: Tello Madrid MD at 14:39 EDT , Service support ,
== END ==
PROVIDERS: PCP Family Medicine; Referring Provider Family Medicine; Visit Provider Family Medicine
DX: Z72.0 Tobacco use (principal)
CPT/HCPCS: 71271

== ENCOUNTER 2020-12-10 02:11 | Emergency (ER) | payer BC, SELFPAY ==
[2020-12-10 02:12] VITALS: BP 140/74; PULSE 80; RESP 18; TEMP 36.6; O2SAT 95; BMI 35.4
--- NOTE | 2020-12-10 02:45 | EKG12_ITS ---
Test Reason : DYSRHYTHMIA Blood Pressure : / mmHG Vent. Rate : 071 BPM Atrial Rate : 071 BPM P-R Int : 144 ms QRS Dur : 086 ms QT Int : 398 ms P-R-T Axes : 033 022 043 degrees QTc Int : 432 ms Normal sinus rhythm Normal ECG Confirmed by DAMARIS PHOENIX, ELY ([id number]), associate entertainment editor ELIZABETH DUNN ([id number]) on 12/10/2020 1:10:38 PM Referred By: PL Confirmed By:ELY OCAMPO MD
[2020-12-10 02:48] VITALS: O2SAT 95
--- NOTE | 2020-12-10 02:51 | EDS_ITS ---
HPI History of Present Illness Chief Complaint: General Illness Informant: patient Narrative Narrative: Patient is on day 4 of symptoms. She started off with nasal congestion and runny nose. That rapidly went into a cough but no sputum production. She has myalgias. She has had fevers. She has had some nausea and mild soft stool but no watery diarrhea. No vomiting. She is able to eat and drink although her appetite is down. She has slight headache. She woke up this morning and was coughing and felt short of breath. She was concerned about Covid and that is why she came in. She is not vaccinated. She does smoke. Her is also now getting sick over the last couple days and evidently he has been exposed to several people with Covid at work. She is not having chest pain. No syncope. No leg swelling. [facility] Medical History DCIS (ductal carcinoma in situ) of breast Depression Hyperlipidemia Hypertension Home Medications amlodipine 5 mg PO DAILY 12/01/16 [History Last Taken Unknown] escitalopram oxalate 20 mg PO DAILY 12/01/16 [History Last Taken Unknown] pravastatin 10 mg PO DAILY 12/01/16 [History Last Taken Unknown] Allergy/AdvReac Type Severity Reaction Status Date / Time No Known Allergies Allergy Verified 12/10/20 02:14 Family History Brother Diabetes Father Lung cancer Mother Lung cancer Brother COPD (chronic obstructive pulmonary disease) Surgical History S/P appendectomy Social History Smoking Status: Current every day smoker tobacco type: cigarettes ROS ROS ED Constitutional Constitutional ED: Reports chills, fever(s) and sweats Eyes Eyes: Denies blurry vision or change in vision ENT ENT ED: Reports rhinorrhea and sore throat Cardiovascular Cardiovascular: Denies chest pain, palpitations or racing heartbeat Respiratory/Chest Respiratory/Chest: Reports cough and dyspnea; Denies sputum Gastrointestinal Gastrointestinal: Reports nausea; Denies abdominal pain, diarrhea or vomiting Genitourinary Genitourinary ED: Denies dysuria or hematuria Musculoskeletal Musculoskeletal: Reports myalgias Integumentary Denies rash Neurologic Neurologic: Denies headache(s), paresthesias or weakness Psychiatric Psychiatric: Denies anxiety Endocrine Endocrinology: Denies polydipsia or polyuria Allergic/Immunologic Allergic/Immunologic ED: Denies mouth swelling or urticaria EXAM Physical Exam Const Vital Signs: 12/10/20 02:12 12/10/20 02:15 Temperature 97.9 F Temperature Source Oral Pulse Rate 80 Respiratory Rate 18 Respiratory Effort Normal Respiratory Pattern Normal Blood Pressure 140/74 H Blood Pressure Mean 96 Pulse Ox 95 Oxygen Delivery Method Room Air Positive well nourished and well developed General Appearance ED: well developed and NAD HEENT Reports moist mucous membranes Negative for trauma or tenderness Eyes General Eye ED: Negative for pale conjunctiva Neck no JVD Chest Wall palpation of chest normal Resp normal respiratory effort Resp Narrative: Very mild basilar rhonchi on both sides. No wheezes. No rales. No pain with a deep breath. Effort and Inspection: Negative for pain with movement Auscultation: rhonchi; Negative for rales or wheezes Cardio regular rate, regular rhythm and no murmurs GI normal to inspection, nondistended, normoactive bowel sounds and non-tender Palpation: soft Back/Spine no CVA tenderness Extremity normal to inspection General Extremety ED: Negative for edema or tenderness General Extremity: Negative for edema Neuro oriented x3 Sensorium / Orientation: alert Psych mental status grossly normal Skin no rashes or lesions noted and no wounds MDM MDM MDM Narrative Medical decision making narrative: Patient's x-ray shows no marked abnormality. However, her Covid is positive. This was expected from her symptoms. She does not need Decadron or oxygen at this time. I will put an order for monoclonal antibody therapy. We discussed that this could worsen and she may need to return. She can get an O2 saturation monitor online or at the store. If she is dropping into the low 90s or in the 80s she needs to return. When I talked to the patient second time. She stated that she was having some pain toward her right flank. It does seem to be related to moving and coughing. But she also stated that sometimes she gets a little bit of burning or strong urine. We checked the urine. There is leukocyte Estrace but no other sign of UTI. No red cells. I think patient can go home. We have placed the monoclonal antibody order. Lab Data Attestation: I reviewed the patient's lab results. Labs: Laboratory Results - last 24 hr 12/10/20 04:30 Urine Color Yellow Urine Clarity Clear Urine pH 6.0 Ur Specific [place] 1.015 Urine Protein Negative Urine Glucose (UA) Normal Urine Ketones Negative Urine Occult Blood 10 H Urine Nitrite Negative Urine Bilirubin Negative Urine Urobilinogen Normal Ur Leukocyte Esterase 100 H Urine RBC 0 SEEN Urine WBC 0-5 SEEN Ur Squamous Epith Cells 0-5 SEEN Urine Bacteria 1+ Urine Mucus 0 SEEN Radiography Diagnostic Testing: Clinical Impression(s) from Imaging Studies Chest X-Ray 12/10/20 03:20 IMPRESSION: No acute findings in the chest. at 0358 Reported and signed by: Alex Rincon MD Electronically Signed: Alex Rincon MD at 3:57 EDT Tel , Service support , EKG Initial EKG: Comments: EKG done for dyspnea read by me shows normal sinus rhythm with a rate of 71. No ectopy. No acute ST elevation or depression. VT interval, QRS duration and QTc normal. Discharge Plan Triage Chief Complaint: General Illness ED Provider: Reji Maldonado Dx/Rx/DC Orders Clinical Impression: COVID-19, Dyspnea Instructions: Caring for Someone Who Has COVID-19 Prescriptions: No Action amlodipine 5 MG tablet 5 mg PO DAILY RF: 0 pravastatin 10 MG tablet 10 mg PO DAILY RF: 0 escitalopram oxalate 20 MG tablet 20 mg PO DAILY RF: 0 Other Ambulatory Orders: COVID Outpatient Monoclonal Antibody Referral (Routine) Timeframe: 1 Day Facility: [facility] - Location: [facility] Ordered By: Dr. Reji Maldonado Primary Care Provider: Ruben White Referrals: Ruben White MD [Primary Care Provider] - 10-14 Days if not better Disposition Disposition: Home, Self Care
--- NOTE | 2020-12-10 03:20 | RAD_ITS ---
EXAM: XR CHEST, 2 VIEWS : 1960 CLINICAL INDICATION: cough, ?Covid TECHNIQUE: Frontal and lateral views of the chest. This report was created using [employer] report generation technology. COMPARISON: None. FINDINGS: LUNGS AND PLEURAL SPACES: Unremarkable. No consolidation or edema. No pneumothorax. No effusion. HEART: Unremarkable. Cardiac silhouette not enlarged. MEDIASTINUM: Central airways and mediastinal contour are unremarkable. BONES/JOINTS: Degenerative changes of the spine. SOFT TISSUES: Unremarkable. RAD/Chest PA and Lateral IMPRESSION: No acute findings in the chest. at 0358 Reported and signed by: Alex Rincon MD Electronically Signed: Alex Rincon MD at 3:57 EDT Tel , Service support ,
[2020-12-10 04:44] LABS: Mucous, Urine 0 SEEN /hpf (<or=2+); Red Blood Cells-Urine 0 SEEN /hpf (0-5)
[2020-12-10 04:48] LABS: Color, Urine Yellow (Yellow); Glucose, Dipstick Normal (Normal); Ketone-Dipstick Negative (Negative); Leukocyte Esterase-Dipstick 100 /ul (Negative); Nitrite-Dipstick Negative (Negative); Occult Blood-Urine 10 /ul (Negative); Protein-Dipstick Negative (Negative); Specific Gravity, Urine 1.015 (1.002-1.030); Urine Bilirubin Dipstick Negative (Negative); Urine Clarity Clear (Clear); Urine Urobilinogen Normal (Normal)
[2020-12-10 05:12] LABS: Bacteria 1+ /hpf (None Seen); Squamous Epithelial Cells - UA 0-5 SEEN /hpf (5-10); White Blood Cells 0-5 SEEN /hpf (0-5)
[2020-12-10 05:28] VITALS: BP 121/106; PULSE 77; RESP 16; O2SAT 93
== END 2020-12-10 05:29 | disposition home or self-care (01) ==
PROVIDERS: Emergency Provider Emergency Medicine; PCP Family Medicine
DX: U07.1 COVID-19 (principal); R06.00 Dyspnea, unspecified; I10 Essential (primary) hypertension; E78.5 Hyperlipidemia, unspecified; F32.A Depression, unspecified; Z79.899 Other long term (current) drug therapy; F17.210 Nicotine dependence, cigarettes, uncomplicated
CPT/HCPCS: 71046; 81001; 87426; 93005; 99282

== ENCOUNTER → 2021-01-17 12:39 | Outpatient (CLI) | payer BC, SELFPAY ==
[2020-02-02 14:29] VITALS: BMI 35.5
--- NOTE | 2021-01-17 12:47 | BI_ITS ---
MAMMOGRAPHY - BILATERAL SCREENING REASON FOR EXAM: Female, 60 years old. Routine annual screening examination. PERTINENT HISTORY: Personal history of breast cancer. Prior left lumpectomy and radiation treatment. TECHNIQUE: Digital bilateral breast leatha (3D mammographic acquisition) in the CC and MLO projections. 2-D mediolateral oblique (MLO) and craniocaudad (CC) views of both breasts were obtained. CAD: Full Field Digital Mammography with Computer Added Detection was performed. COMPARISON: Comparison is made with prior study dated 01/05/2020 and 01/03/2019. FINDINGS: Breast Composition: There are scattered areas of fibroglandular density. There are no dominant masses or suspicious calcifications. Once again, the patient is status post lumpectomy in the upper central aspect of the left breast with resultant postoperative changes. This is unchanged. No other significant abnormalities are identified. There has been no significant change since the prior study. BI/SCRN MAMM (CAD)W/LEATHA BILAT IMPRESSION: Stable bilateral screening mammogram. Yearly follow-up mammogram recommended. (A) ASSESSMENT CATEGORY: BIRADS Category 2: Benign. A letter regarding these results will be sent to the patient by the facility within 30 days. Approximately 10% of breast cancers are not detected by mammography. A normal mammogram should not delay biopsy of a clinically suspicious abnormality. [id number] Electronically Signed: Tello Madrid MD at 14:17 EST , Service support ,
--- NOTE | 2021-01-17 13:05 | BD_ITS ---
STUDY: DUAL ENERGY X-RAY ABSORPTIOMETRY / DXA REASON FOR EXAM: Female, 60 years old. 627.8Menopausal postmenopausalBONE DENSITY REASON FOR EXAM TECHNIQUE: Bone Mineral Density (BMD) measurements of lumbar spine and bilateral hips were obtained. COMPARISON: Comparison is made with prior study 11/27/2015. FINDINGS: Lumbar Spine (L1-L4): g/cm2 (0.805) / T-score (-2.2) / Z-score (-0.9) Findings are suggestive of osteopenia with a high fracture risk. Left Femur Total: g/cm2 (0.910) / T-score (-0.3) / Z-score (0.6) Left Femoral Neck: g/cm2 (0.745) / T-score (-0.9) / Z-score (0.3) Right Femur Total: g/cm2 (0.892) / T-score (-0.4) / Z-score (0.5) Right Femoral Neck: g/cm2 (0.669) / T-score (-1.6) / Z-score (-0.4) The T-Scores on the most recent prior examination were: Lumbar Spine (L1-L4): There has been worsening of bone density since the previous examination. Left Femur Total: which represents a worsening of 8.9%. Right Femur Total: which represents a worsening of 3.7%. BD/Dexa Bone Density Study IMPRESSION: The patient is considered osteopenic as outlined below according to World Paul Organization (WHO) criteria with a high fracture risk. There has been worsening of bone density since the previous examination. Reference Information: The T-score is the number of standard deviations above or below the standard which is normal for young adults at their peak bone mineral density. The World Health Organization (WHO) interprets the T-scores as follows: Above -1 Normal bone density Between -1 and -2.5 Osteopenia Equal to / or below -2.5 Osteoporosis As a practical clinical guideline, osteopenia may be graded as follows: Mild -1 through -1.5 Moderate -1.6 through -2.0 Severe -2.1 through -2.4 The Z-score is the number of standard deviations above or below age-matched controls. A Z-score of less than -1.5 would be considered abnormal. References: 1. NIH Osteoporosis and Related Bone Diseases www osteo.org 2. International Society for Clinical Densitometry www iscd.org 3. National Osteoporosis Foundation www nof.org Electronically Signed: Tello Madrid MD at 14:30 EST , Service support ,
== END ==
PROVIDERS: PCP Family Medicine; Referring Provider Family Medicine; Visit Provider Family Medicine
DX: Z12.31 Encounter for screening mammogram for malignant neoplasm of breast (principal); Z78.0 Asymptomatic menopausal state
CPT/HCPCS: 77063; 77067; 77080

== ENCOUNTER 2021-06-19 14:01 | Outpatient (CLI) | payer BC, SELFPAY ==
[2021-06-19 18:32] LABS: Anion Gap 9 (5-15); BUN 13 mg/dL (7-18); Calcium,Total 9.4 mg/dL (8.5-10.1); Chloride 102 mmol/L (98-107); Creatinine, Serum 0.56 mg/dL (0.55-1.02); EST Glomerular Filtration Rate 116 mL/min (>60); Est Glom Filt Rate - Afr Amer 141 mL/min (>60); Glucose 80 mg/dL (74-106); Potassium 3.5 mmol/L (3.5-5.1); Sodium Level 136 mmol/L (136-145)
[2021-06-19 18:34] LABS: Vitamin B12 454 pg/mL (211-911)
== END 2021-06-19 23:59 | disposition home or self-care (01) ==
PROVIDERS: PCP Family Medicine; Referring Provider Family Medicine; Visit Provider Family Medicine
DX: I10 Essential (primary) hypertension (principal); R53.83 Other fatigue
CPT/HCPCS: 36415; 80048; 82607; 82746; 84443

== ENCOUNTER 2021-09-26 13:20 | Outpatient (CLI) | payer OTHER, BC, SELFPAY ==
--- NOTE | 2021-09-26 13:31 | US_ITS ---
STUDY: ULTRASOUND BREAST - LEFT REASON FOR EXAM: Female, 60 years old. Palpable lump left breast. TECHNIQUE: Axial and longitudinal images of the LEFT breast were performed with a high resolution ultrasound transducer. # OF IMAGES: 31 COMPARISON: Comparison is made with prior mammogram done earlier today. FINDINGS: LEFT Breast: The upper outer quadrant of the left breast was examined with ultrasound. No sonographic abnormality is seen. Clinical correlation recommended. US/Breast Limited Unilateral IMPRESSION: No sonographic abnormality is seen. ASSESSMENT CATEGORY: BIRADS Category 1: Negative. A letter regarding these results will be sent to the patient by the facility within 30 days. Electronically Signed: Tello Madrid MD at 15:08 EDT ,
--- NOTE | 2021-09-26 13:33 | BI_ITS ---
MAMMOGRAPHY - BILATERAL DIAGNOSTIC REASON FOR EXAM: Female, 60 years old. 2-3 month history of left breast lump. PERTINENT HISTORY: Personal history of breast cancer. Prior left lumpectomy with radiation treatment. TECHNIQUE: Digital bilateral breast kae (3D mammographic acquisition) in the CC and MLO projections. 2-D mediolateral oblique (MLO) and craniocaudad (CC) views of both breasts were obtained. CAD: Full Field Digital Mammography with Computer Added Detection was performed. COMPARISON: Comparison is made with prior study dated 01/17/2021 and 01/05/2020. FINDINGS: Breast Composition: There are scattered areas of fibroglandular density. There are no dominant masses or suspicious calcifications. Once again, the patient is status post lumpectomy in the deep central portion of the left breast with resultant postoperative changes. A single surgical clip is seen in the left axillary region. There has been no change. No other significant abnormalities are identified. There has been no significant change since the prior study. BI/DIAG MAMM W/CAD, BILAT IMPRESSION: Stable bilateral diagnostic mammogram. With the patient''s history of a lump of the left breast, correlation with ultrasound is recommended. ASSESSMENT CATEGORY: BIRADS Category 0: Incomplete. Need additional imaging evaluation. A letter regarding these results will be sent to the patient by the facility within 30 days. Approximately 10% of breast cancers are not detected by mammography. A normal mammogram should not delay biopsy of a clinically suspicious abnormality. Electronically Signed: Tello Madrid MD at 14:42 EDT ,
== END 2021-09-26 23:59 | disposition home or self-care (01) ==
LOC: OPUS 13:21
PROVIDERS: PCP Family Medicine; Visit Provider Family Medicine
DX: N63.20 Unspecified lump in the left breast, unspecified quadrant (principal)
CPT/HCPCS: 76642; 77062; 77066; G0279

== ENCOUNTER → 2022-03-24 | Outpatient (CLI) | payer OTHER, BC, SELFPAY ==
[2022-03-24 18:18] LABS: ALB/GLOB Ratio 1.1 RATIO (0.9-2.4); AST(SGOT) 23 U/L (15-37); Alanine Aminotransfer ALT/SGPT 42 U/L (13-56); Albumin, Serum 4.1 g/dL (3.2-5.0); Alkaline Phosphatase 75 U/L (45-117); Anion Gap 12 (5-15); BUN 15 mg/dL (7-18); BUN/Creat Ratio 29.2 RATIO (10-20); Calcium,Total 9.8 mg/dL (8.5-10.1); Chloride 105 mmol/L (98-107); Creatinine, Serum 0.51 mg/dL (0.55-1.02); EST Glomerular Filtration Rate 130 mL/min (>60); Est Glom Filt Rate - Afr Amer 157 mL/min (>60); Globulin 3.6 g/dL (2.2-4.2); Glucose 89 mg/dL (74-106); Potassium 3.9 mmol/L (3.5-5.1); Protein, Total 7.7 g/dL (6.4-8.2); Sodium Level 138 mmol/L (136-145); Thyroid Stim Hormone (TSH) 2.18 uIU/mL (0.358-3.74)
== END | disposition home or self-care (01) ==
LOC: MFPLAB 15:38
PROVIDERS: PCP Family Medicine; Visit Provider Family Medicine
DX: F41.9 Anxiety disorder, unspecified (principal)
CPT/HCPCS: 36415; 80053; 84443

== ENCOUNTER → 2023-04-07 | Outpatient (CLI) | payer BC, SELFPAY ==
[2023-04-07 15:02] LABS: Absolute Lymphocyte Count 2.12 X10^3/uL (0.83-4.51); Absolute Neutrophil Count 5.4 X10^3/uL (2.0-7.7); Basophil# 0.05 X10^3/uL; Basophil% 0.6 % (0-1); Eosinophils% 2.3 % (0-5); Hematocrit 44.6 % (37-47); Lymphocyte # 2.12 X10^3/ul (0.83-4.51); Lymphocyte % 24.9 % (19-41); Mean Corp Hgb Conc 33.6 g/dL (32-36); Mean Corpuscular Hgb 30.9 pg (27.0-32.0); Mean Corpuscular Volume 91.8 fL (81-99); Mean Platelet Vol. 10.6 fl (6.2-12.0); Monocyte# 0.77 X10^3/uL; NRBC Flagged by Analyzer 0 % (0-5); Neutrophil # 5.35 X10^3/uL (2.7-7.7); Neutrophil % 62.7 % (47-70); Platelet Count 328 K/mm3 (150-450); RBC Distribution Width CV 13.1 % (11.6-14.6); RBC Distribution Width SD 43.9 fl (35.1-43.9); Red Blood Count 4.86 M/mm3 (4.2-5.4); White Blood Count 8.5 K/mm3 (4.4-11.0)
[2023-04-07 15:27] LABS: ALB/GLOB Ratio 1.1 RATIO (0.9-2.4); AST(SGOT) 23 U/L (15-37); Alanine Aminotransfer ALT/SGPT 41 U/L (13-56); Albumin, Serum 4.1 g/dL (3.2-5.0); Alkaline Phosphatase 86 U/L (45-117); Anion Gap 5 (5-15); BUN 15 mg/dL (7-18); BUN/Creat Ratio 23.8 RATIO (10-20); Calcium,Total 9.6 mg/dL (8.5-10.1); Chloride 107 mmol/L (98-107); Creatinine, Serum 0.63 mg/dL (0.55-1.02); EST Glomerular Filtration Rate 102 mL/min (>60); Est Glom Filt Rate - Afr Amer 124 mL/min (>60); Globulin 3.8 g/dL (2.2-4.2); Glucose 107 mg/dL (74-106); Potassium 3.9 mmol/L (3.5-5.1); Protein, Total 7.9 g/dL (6.4-8.2); Sodium Level 134 mmol/L (136-145); Thyroid Stim Hormone (TSH) 2.17 uIU/mL (0.358-3.74)
[2023-04-07 16:07] LABS: Hemoglobin A1c 5.5 % (3.8-5.6)
--- OUTSIDE RECORDS SUMMARY | 2023-04-07 17:35 | XMS RPT_ITS | CCD ---
Author Name Unknown Address [address] [place] [address] Organization [facility] Care Team Providers Care Adventure Therapist Name Role Phone Maye White MD Primary Care Provider [phone] KRAIG KANG Attending Unavailable MAYE WHITE Referring Unavailable MAYE WHITE Primary Care Unavailable MAYE WHITE Primary Care Unavailable MAYE WHITE Primary Care Unavailable KRAIG KANG Referring Unavailable MAYE WHITE Primary Care Unavailable KRAIG KANG Attending Unavailable KRAIG KANG Admitting Unavailable Allergies Allergy Classification Reported Allergen(s) Allergy Type Date of Onset Reaction(s) Facility (2 sources) Acetaminophen / HYDROcodone; Translations: [HYDROCODONE-ACET AMINOPHEN] Drug Allergy 4 [facility] Repository (2 sources) Angiotensin Converting Enzyme (Timmy) Inhibitors; Translations: [TIMMY INHIBITORS] Propensity to adverse reactions to drug (disorder) 4 [facility] Repository (2 sources) Codeine; Translations: [CODEINE] Drug Allergy 4 [facility] Repository Medications Current Medications Medication Drug Class(es) Dates Sig (Normalized) Sig (Original) amoxicillin 875 mg oral tablet (1 source) Penicillin-class Antibacterial Start: 11-29-2022 End: 12-06-2022 take 1 tablet by mouth twice daily amoxicillin (AMOXIL) 875 mg tablet Take 1 tablet by mouth two times a day for 7 days. 14 tablet 0 11/29/2022 12/06/2022 Active Completed/Discontinued Medications Medication Drug Class(es) Dates Sig (Normalized) Sig (Original) amLODIPine 10 mg oral tablet (3 sources) Dihydropyridine Calcium Channel Sergey Start: 10-21-2022 take 1 tablet by mouth once amLODIPine (NORVASC) 10 mg tablet Take 1 tablet by mouth every afternoon. 0 10/21/2022 Active Problems Problem Classification Problem Date Documented Date Episodic/Chronic Disorders of lipid metabolism (1 source) Other hyperlipidemia; Translations: [Other hyperlipidemia] Onset: 03-23-2023 Chronic Essential hypertension (1 source) Essential (primary) hypertension; Translations: [Essential (primary) hypertension] Onset: 03-23-2023 Chronic Immunizations and screening for infectious disease (2 sources) Contact with or exposure to other viral diseases; Translations: [Exposure to COVID-19 virus] Episodic Other nutritional; endocrine; and metabolic disorders (1 source) Morbid (severe) obesity due to excess calories; Translations: [Class 2 severe obesity due to excess calories with serious comorbidity and body mass index (BMI) of 37.0 to 37.9 in adult ([facility])] Onset: 03-23-2023 Chronic Other nutritional; endocrine; and metabolic disorders (1 source) Body mass index (BMI) 37.0-37.9, adult; Translations: [Class 2 severe obesity due to excess calories with serious comorbidity and body mass index (BMI) of 37.0 to 37.9 in adult ([facility])] Onset: 03-23-2023 Chronic Other skin disorders (2 sources) Disorder of the skin and subcutaneous tissue, unspecified; Translations: [Lesion of subcutaneous tissue] Onset: 03-18-2023 Episodic Other upper respiratory infections (1 source) Acute pansinusitis; Translations: [Acute pansinusitis, unspecified] 11-29-2022 Episodic Otitis media and related conditions (1 source) Finding of fluid behind tympanic membrane; Translations: [Unspecified nonsuppurative otitis media, right ear] 11-29-2022 Episodic Substance-related disorders (1 source) Nicotine dependence, unspecified, uncomplicated; Translations: [Smoker] Onset: 03-23-2023 Chronic Viral infection (1 source) Viral disease; Translations: [Viral infection, unspecified] Episodic Results Test Name Value Interpretation Reference Range Facil ity Vital Signs Date Time Vital Sign Value Performing Clinician Susannah devries 11-29-2022 13:56-0400 Body temperature 97.7 [degF] Gypsy Correa PA-C Work Phone: [facility] 11-29-2022 13:56-0400 Body weight 106.96 kg Gypsy Athy PA-C Work Phone: [facility] 11-29-2022 13:56-0400 Diastolic blood pressure 86 mm[Hg] Gypsy Athy PA-C Work Phone: [facility] 11-29-2022 13:56-0400 Heart rate 86 /min Gypsy Athy PA-C Work Phone: [facility] 11-29-2022 13:56-0400 Respiratory rate 16 /min Gypsy Athy PA-C Work Phone: [facility] 11-29-2022 13:56-0400 SaO2% (BldA) [Mass fraction] 96 % Gypsy Athy PA-C Work Phone: [facility] 11-29-2022 13:56-0400 Systolic blood pressure 134 mm[Hg] Gypsy Athy PA-C Work Phone: [facility] 08-04-2021 11:18-0400 Body temperature 98.8 [degF] Ara Phuong MASKING MACHINE FEEDER.NEEDLE VALVE OPERATOR Work Phone: [facility] 08-04-2021 11:18-0400 Body weight 102.78 kg Ara Phuong MASKING MACHINE FEEDER.NEEDLE VALVE OPERATOR Work Phone: [facility] 08-04-2021 11:18-0400 Diastolic blood pressure 78 mm[Hg] Ara Phuong MASKING MACHINE FEEDER.NEEDLE VALVE OPERATOR Work Phone: [facility] 08-04-2021 11:18-0400 Heart rate 80 /min Ara Phuong MASKING MACHINE FEEDER.NEEDLE VALVE OPERATOR Work Phone: [facility] 08-04-2021 11:18-0400 Respiratory rate 18 /min Ara Phuong MASKING MACHINE FEEDER.NEEDLE VALVE OPERATOR Work Phone: [facility] 08-04-2021 11:18-0400 SaO2% (BldA) [Mass fraction] 97 % Ara Phuong MASKING MACHINE FEEDER.NEEDLE VALVE OPERATOR Work Phone: [facility] 08-04-2021 11:18-0400 Systolic blood pressure 136 mm[Hg] Ara Phuong REX Work Phone: [facility] Encounters Encounter Date Encounter Type Care Provider Facility Start: 03-25-2023 End: 03-25-2023 ambulatory MAYE WHITE Facility:[facility] Start: 03-23-2023 End: 03-23-2023 ambulatory MAYE WHITE Facility:[facility] Start: 03-23-2023 Encounter for other preprocedural examination MAYE WHITE [facility] Start: 03-18-2023 End: 03-19-2023 ambulatory KRAIG KANG Facility:[facility] Start: 11-29-2022 End: 11-29-2022 ambulatory MAYE WHITE Facility:[facility] Start: 11-29-2022 End: 11-29-2022 Patient encounter procedure Gypsy Correa PA-C Work Phone: [facility] Plan of Treatment Date Care Activity Detail Author Start: 10-31-2022 Influenza vaccination Influenza Vaccine (#1) [facility] Start: 03-02-2022 Depression Assessment Depression Assessment [facility] Start: 10-31-2021 Influenza vaccination INFLUENZA (Season Ended) [facility] angelica Start: 08-04-2021 End: 08-18-2021 Influenza virus A and B RNA and SARS-CoV-2 (COVID-19) N gene panel - Respiratory specimen by LANI with probe detection COVID WITH FLUA+B, ROUTINE Microbiology Routine Exposure to COVID-19 virus Expected: 08/04/2021, Expires: 08/18/2021 [facility] Work Phone: Immunizations Immunization Date Immunization Notes Care Provider Whitney gonzalez 11-27-2021 influenza virus vacc ine, unspecified formulation Gypsy Correa PA-C Work Phone: [facility] Payers Date Payer Category Payer Unknown [employer] PPO OOS [id number] 2021-Present [phone] [address] [place] [address] PPO [id number] 2021 Unknown [employer]NE FIGUEROA PPO [id number] 2021-Present [phone] [address] [place] [address] PPO [id number] 2021 Unknown [id number] Social History Date Type Detail Facility Start: 08-04-2021 End: 11-29-2022 Tobacco smoking status NHIS Smokes tobacco daily [facility] End: 01-30-2007 History of tobacco use Smoker [facility] Start: 08-04-2021 End: 11-29-2022 Tobacco use and exposure Smokeless tobacco non-user [facility] Start: 08-04-2021 End: 11-29-2022 Alcohol intake Current drinker of alcohol (finding) [facility] Start: 1960 Sex Assigned At Not on file [facility] Start: 07-25-2021 End: 08-04-2021 Exposure to SARS-CoV-2 (event) Not sure [facility] Work Phone: End: 01-30-2007 History of tobacco use Cigarette Smoker [facility] Start: 11-29-2022 History of Social function [facility] Start: 11-29-2022 Tobacco use panel [facility] Progress note 03-23-2023 Note Date & Type Note Facility 03-23-2023 Note HNO ID: [id number] Author: KRAIG KANG MD Service: ? Author Type: Physician Type: Progress Notes Filed: 03/23/2023 11:53 Note Text: HISTORY AND PHYSICAL Maria Isabel Hancock 1960 REFERRING PHYSICIAN: Maye White MD CHIEF COMPLAINT: Consult (Soft tissue mass on back. ) HPI: The patient is a 62 year old female with a complaint of lump on the right upper back area. She has noticed this for more than 2 months she sleeps on that sides notices some discomfort she is not sure if it is growing not really appreciably tender.. The patient is being seen by me today at the request of Dr. Maye White MD for my opinion and advice regarding Lesion of subcutaneous tissue (primary encounter diagnosis). PAST MEDICAL HISTORY Diagnosis Date ADD (attention deficit disorder) ADD (attention deficit disorder) Allergic rhinitis, cause unspecified Anxiety Body dysmorphic disorder Breast lump left Carcinoma in situ of breast left Carpal tunnel syndrome right wrist Depressive disorder, not elsewhere classified Ductal carcinoma in situ (DCIS) of left breast Dyspnea Essential hypertension, benign Generalized anxiety disorder Grief Hypercholesterolemia Lipoma of back Mammographic microcalcification Menopause Obesity Paresthesia Post-nasal drainage Skin tag upper back, between breasts Tobacco use disorder Vitamin D deficiency PAST SURGICAL HISTORY Procedure Laterality Date APPENDECTOMY 11/2017 BX/EXC LYMPH NODE OPEN DEEP AXILLARY NODE 09/13/2008 left breast COLONOSCOPY 03/2019 WNL, repeat [address] Martini COLONOSCOPY SCREENING 2013 INJ RADIOACTIVE TRACER FOR ID OF SENTINEL NODE 09/13/2008 left breast LAPAROSCOPY SURG CHOLECYSTECTOMY 03/02/1988 Cholecystectomy, lap LIG/TRNSXJ FLP TUBE ABDL/VAG APPR UNI/BI 03/02/1988 Tubal ligation MASTECTOMY, PARTIAL 09/13/2008 left breast PAST SURGICAL HISTORY OF Right 04/2013 carpal tunnel STEREOTACTIC CORE BIOPSY 08/10/2008 TOTAL ABDOMINAL HYSTERECT W/WO RMVL TUBE OVARY 03/02/2005 Hysterectomy, TAHIR Current Outpatient Medications Medication Sig desonide (TRIDESILON) 0.05 % cream Apply 1 Each to affected area two times a day. fluticasone prp-sod.chl,bicarb 50 mcg- 0.9 % ksps Use 2 Sprays in the nose two times a day. IPRATROPIUM BROMIDE NASAL Use 1 [place] in the nose every 6 hours as needed (nasal congestion, cough, rhinorrhea). nortriptyline (PAMELOR) 10 mg capsule Take 10 mg by mouth daily at bedtime. vortioxetine (TRINTELLIX) 10 mg tablet Take 10 mg by mouth once daily. Ibuprofen 200 mg cap Take 2 capsules by mouth every 6 hours as needed for pain. levocetirizine 5 mg tablet Take 1 tablet by mouth every afternoon. methylphenidate CD (METADATE CD) 60 mg biphasic capsule Take 1 capsule by mouth once daily. valsartan (DIOVAN) 320 mg tablet Take 1 tablet by mouth once daily. amLODIPine (NORVASC) 10 mg tablet Take 1 tablet by mouth every afternoon. pravastatin (PRAVACHOL) 80 mg tablet Take 1 tablet by mouth every afternoon. buPROPion SR (ZYBAN SR; WELLBUTRIN SR) 150 mg 12 hr tablet Take 1 tablet by mouth two times a day. pravastatin (PRAVACHOL) 10 mg tablet Take by mouth. (Patient not taking: Reported on 11/29/2022) amLODIPine (NORVASC) 5 mg tablet Take 5 mg by mouth once daily. (Patient not taking: Reported on 11/29/2022) benzonatate (TESSALON PERLE) 100 mg capsule Take 1-2 capsules tid prn, no more than 6 in 24 hours. (Patient not taking: Reported on 11/29/2022) escitalopram oxalate(LEXAPRO 20 MG TAB) Take one(1) tablet daily. (Patient not taking: Reported on 11/29/2022) irbesartan(AVAPRO 75 MG TAB) one tablet daily (Patient not taking: Reported on 11/29/2022) No current facility-administered medications for this visit. ALLERGIES: Timmy Inhibitors, Codeine, and Hydrocodone-Acetaminophen PERSONAL HISTORY: Social History Tobacco Use Smoking status: Every Day Packs/day: .5 Types: Cigarettes Last attempt to quit: 01/30/2007 Years since quittin.1 Smokeless tobacco: Never Substance Use Topics Alcohol use: Yes Comment: social Drug use: No FAMILY HISTORY: FAMILY HISTORY Problem Relation Age of Onset Lung Cancer Mother Emphysema Father Lung Cancer Father other (indolent brain tumor-resolved) Sister COPD Brother Heart Attack Brother Diabetes Brother Diabetes Brother Hypothyroidism Brother Primary Biliary Cirrhosis Brother Diabetes Brother No Known Problems Son No Known Problems Son No Known Problems Daughter REVIEW OF SYMPTOMS: The review of systems data was entered by the nurse and reviewed by ks Nursing Notes: Anais Rockwell RN 03/18/2023 2:06 PM Signed REVIEW OF SYSTEMS: General: The patient denies fatigue, denies weight loss, NOTES weight gain, denies feeling hot, and denies feelings of cold. Eyes: The patient denies glaucoma, denies eye injury/surgery, wears glasses or contacts. Ear/Nose/Throat: The patient NOTES allerg (more content not included)... [facility] Progress note 11-29-2022 Note Date & Type Note Facility 11-29-2022 Note HNO ID: [id number] Author: Gypsy Correa PA-C Service: ? Author Type: Physician Ruby Rails Developer Type: Progress Notes Filed: 11/29/2022 2:23 PM Note Text: This note was created using Nintexriter. Subjective Maria Isabel Hancock is a 61 year old female. HPI Patient presents with a chief complaint of sinus pressure congestion ear pain that is been going on for couple weeks. She has seen her primary doctor 3 weeks ago and he told her to try some Sudafed. That really was not helping. She does have chronic allergies and is on Xyzal daily. She denies fever. No drainage out of her ear. Pressure and congestion seem to worsen the past 3 days. No diarrhea or vomiting. No cough. Review of Systems Constitutional: Negative. HENT: Positive for congestion, ear pain, postnasal drip, sinus pressure and sinus pain. Respiratory: Negative. Cardiovascular: Negative. Gastrointestinal: Negative. Genitourinary: Negative. Musculoskeletal: Negative. All other systems reviewed and are negative. PAST MEDICAL HISTORY Diagnosis Date Allergic rhinitis, cause unspecified Carcinoma in situ of breast left Depressive disorder, not elsewhere classified Essential hypertension, benign Mammographic microcalcification Current Outpatient Medications Medication Sig Dispense Refill buPROPion SR (ZYBAN SR; WELLBUTRIN SR) 150 mg 12 hr tablet Take 1 tablet by mouth two times a day. levocetirizine 5 mg tablet Take 1 tablet by mouth every afternoon. methylphenidate CD (METADATE CD) 60 mg biphasic capsule Take 1 capsule by mouth once daily. valsartan (DIOVAN) 320 mg tablet Take 1 tablet by mouth once daily. amLODIPine (NORVASC) 10 mg tablet Take 1 tablet by mouth every afternoon. pravastatin (PRAVACHOL) 80 mg tablet Take 1 tablet by mouth every afternoon. predniSONE (DELTASONE) 20 mg tablet Take 2 tablets by mouth once daily for 5 days. 10 tablet 0 amoxicillin (AMOXIL) 875 mg tablet Take 1 tablet by mouth two times a day for 7 days. 14 tablet 0 pravastatin (PRAVACHOL) 10 mg tablet Take by mouth. (Patient not taking: Reported on 11/29/2022) amLODIPine (NORVASC) 5 mg tablet Take 5 mg by mouth once daily. (Patient not taking: Reported on 11/29/2022) benzonatate (TESSALON PERLE) 100 mg capsule Take 1-2 capsules tid prn, no more than 6 in 24 hours. (Patient not taking: Reported on 11/29/2022) 30 capsule 0 escitalopram oxalate(LEXAPRO 20 MG TAB) Take one(1) tablet daily. (Patient not taking: Reported on 11/29/2022) 0 irbesartan(AVAPRO 75 MG TAB) one tablet daily (Patient not taking: Reported on 11/29/2022) 0 No current facility-administered medications for this visit. PAST SURGICAL HISTORY Procedure Laterality Date BX/EXC LYMPH NODE OPEN DEEP AXILLARY NODE 09/13/08 left breast INJ RADIOACTIVE TRACER FOR ID OF SENTINEL NODE 09/13/08 left breast LAPAROSCOPY SURG CHOLECYSTECTOMY 1988 Cholecystectomy, lap LIG/TRNSXJ FLP TUBE ABDL/VAG APPR UNI/BI 1988 Tubal ligation MASTECTOMY, PARTIAL 09/13/08 left breast STEREOTACTIC CORE BIOPSY 08/10/08 TOTAL ABDOMINAL HYSTERECT W/WO RMVL TUBE OVARY 2006 Hysterectomy, TAHIR FAMILY HISTORY Problem Relation Age of Onset Cancer Mother LUNG Cancer Father LUNG Social History Tobacco Use Smoking status: Every Day Types: Cigarettes Last attempt to quit: 01/30/2007 Years since quittin.8 Smokeless tobacco: Never Substance Use Topics Alcohol use: Yes Drug use: No Objective BP 134/86 Pulse 86 Temp 36.5 ?C (97.7 ?F) (Left Tympanic) Resp 16 Wt 107 kg (235 lb 12.8 oz) SpO2 96% Physical Exam Vitals reviewed. Constitutional: Appearance: Normal appearance. HENT: Head: Normocephalic and atraumatic. Right Ear: Ear canal and external ear normal. Left Ear: Tympanic membrane, ear canal and external ear normal. Ears: Comments: Right middle ear effusion, no erythema Nose: Congestion present. Right Sinus: Maxillary sinus tenderness and frontal sinus tenderness present. Left Sinus: Maxillary sinus tenderness and frontal sinus tenderness present. Mouth/Throat: Mouth: Mucous membranes are moist. Pharynx: Oropharynx is clear. Cardiovascular: Rate and Rhythm: Normal rate and regular rhythm. Heart sounds: Normal heart sounds. Pulmonary: Effort: Pulmonary effort is normal. Breath sounds: Normal breath sounds. Musculoskeletal: Cervical back: Neck supple. Lymphadenopathy: Cervical: No cervical adenopathy. Skin: General: Skin is warm and dry. Findings: No rash. Neurological: Mental Status: She is alert. Assessment and Plan ASSESSMENT/PLAN: 1. Acute pansinusitis, recurrence not specified - ICD9: 461.8, ICD10: J01.40 (primary diagnosis) - Will begin treatment with Amoxicillin for 7 days, recommending starting her Flonase. Also given prednisone. Follow-up with PCP if not improving. - Supportive care with plenty of fluids, rest, and analgesia prn. - Follow up in 3-5 days if symptoms persist or worsen. 2. Midd (more content not included)... [facility] History of Present illness Narrative 11-29-2022 Gypsy Correa PA-C - 11/29/2022 2:13 PM EDT Note Date & Type Note Facility 11-29-2022 History of Presen t illness Narrative This note was created using DeviceAuthority. Subjective Maria Isabel Hancock is a 61 year old female. HPI Patient presents with a chief complaint of sinus pressure congestion ear pain that is been going on for couple weeks. She has seen her primary doctor 3 weeks ago and he told her to try some Sudafed. That really was not helping. She does have chronic allergies and is on Xyzal daily. She denies fever. No drainage out of her ear. Pressure and congestion seem to worsen the past 3 days. No diarrhea or vomiting. No cough. Review of Systems Constitutional: Negative. HENT: Positive for congestion, ear pain, postnasal drip, sinus pressure and sinus pain. Respiratory: Negative. Cardiovascular: Negative. Gastrointestinal: Negative. Genitourinary: Negative. Musculoskeletal: Negative. All other systems reviewed and are negative. PAST MEDICAL HISTORY Diagnosis Date Allergic rhinitis, cause unspecified Carcinoma in situ of breast left Depressive disorder, not elsewhere classified Essential hypertension, benign Mammographic microcalcification Current Outpatient Medications Medication Sig Dispense Refill buPROPion SR (ZYBAN SR; WELLBUTRIN SR) 150 mg 12 hr tablet Take 1 tablet by mouth two times a day. levocetirizine 5 mg tablet Take 1 tablet by mouth every afternoon. methylphenidate CD (METADATE CD) 60 mg biphasic capsule Take 1 capsule by mouth once daily. valsartan (DIOVAN) 320 mg tablet Take 1 tablet by mouth once daily. amLODIPine (NORVASC) 10 mg tablet Take 1 tablet by mouth every afternoon. pravastatin (PRAVACHOL) 80 mg tablet Take 1 tablet by mouth every afternoon. predniSONE (DELTASONE) 20 mg tablet Take 2 tablets by mouth once daily for 5 days. 10 tablet 0 amoxicillin (AMOXIL) 875 mg tablet Take 1 tablet by mouth two times a day for 7 days. 14 tablet 0 pravastatin (PRAVACHOL) 10 mg tablet Take by mouth. (Patient not taking: Reported on 11/29/2022) amLODIPine (NORVASC) 5 mg tablet Take 5 mg by mouth once daily. (Patient not taking: Reported on 11/29/2022) benzonatate (TESSALON PERLE) 100 mg capsule Take 1-2 capsules tid prn, no more than 6 in 24 hours. (Patient not taking: Reported on 11/29/2022) 30 capsule 0 escitalopram oxalate(LEXAPRO 20 MG TAB) Take one(1) tablet daily. (Patient not taking: Reported on 11/29/2022) 0 irbesartan(AVAPRO 75 MG TAB) one tablet daily (Patient not taking: Reported on 11/29/2022) 0 No current facility-administered medications for this visit. PAST SURGICAL HISTORY Procedure Laterality Date BX/EXC LYMPH NODE OPEN DEEP AXILLARY NODE 09/13/08 left breast INJ RADIOACTIVE TRACER FOR ID OF SENTINEL NODE 09/13/08 left breast LAPAROSCOPY SURG CHOLECYSTECTOMY 1988 Cholecystectomy, lap LIG/TRNSXJ FLP TUBE ABDL/VAG APPR UNI/BI 1988 Tubal ligation MASTECTOMY, PARTIAL 09/13/08 left breast STEREOTACTIC CORE BIOPSY 08/10/08 TOTAL ABDOMINAL HYSTERECT W/WO RMVL TUBE OVARY 2006 Hysterectomy, TAHIR FAMILY HISTORY Problem Relation Age of Onset Cancer Mother LUNG Cancer Father LUNG Social History Tobacco Use Smoking status: Every Day Types: Cigarettes Last attempt to quit: 01/30/2007 Years since quittin.8 Smokeless tobacco: Never Substance Use Topics Alcohol use: Yes Drug use: No Objective BP 134/86 Pulse 86 Temp 36.5 C (97.7 F) (Left Tympanic) Resp 16 Wt 107 kg (235 lb 12.8 oz) SpO2 96% Physical Exam Vitals reviewed. Constitutional: Appearance: Normal appearance. HENT: Head: Normocephalic and atraumatic. Right Ear: Ear canal and external ear normal. Left Ear: Tympanic membrane, ear canal and external ear normal. Ears: Comments: Right middle ear effusion, no erythema Nose: Congestion present. Right Sinus: Maxillary sinus tenderness and frontal sinus tenderness present. Left Sinus: Maxillary sinus tenderness and frontal sinus tenderness present. Mouth/Throat: Mouth: Mucous membranes are moist. Pharynx: Oropharynx is clear. Cardiovascular: Rate and Rhythm: Normal rate and regular rhythm. Heart sounds: Normal heart sounds. Pulmonary: Effort: Pulmonary effort is normal. Breath sounds: Normal breath sounds. Musculoskeletal: Cervical back: Neck supple. Lymphadenopathy: Cervical: No cervical adenopathy. Skin: General: Skin is warm and dry. Findings: No rash. Neurological: Mental Status: She is alert. Assessment and Plan ASSESSMENT/PLAN: 1. Acute pansinusitis, recurrence not specified - ICD9: 461.8, ICD10: J01.40 (primary diagnosis) - Will begin treatment with Amoxicillin for 7 days, recommending starting her Flonase. Also given prednisone. Follow-up with PCP if not improving. - Supportive care with plenty of fluids, rest, and analgesia prn. - Follow up in 3-5 days if symptoms persist or worsen. 2. Middle ear effusion, right - ICD9: 381.4, ICD10: H65.91 Gypsy Correa PA-C documented in this encounter [facility] Instructions 08-04-2021 Patient Instructions Note Date & Type Note Facility 08-04-2021 Instructions Ara Baca APRN.NEEDLE VALVE OPERATOR - 08/04/2021 11:40 AM EDT covid test ordered You will be notified in 24 -48 hours, results available on [facility] Home isolation until covid results are back Rest, increase water intake Motrin or Tylenol as needed for fever or pain. Salt water gargles, chloraseptic spray or lozenges as needed for sore throat. Warm beverages, honey. Nasal saline spray as needed Cool mist humidifier at night Tylenol (generic acetaminophen) 500 mg-2 tabs every 8 hrs. as needed for fever and aches Ibuprofen 600 mg (3-200mg tablets) every 6 hours Tessalon Perles 1-2 every 8 hours, do not combine this with robitussin or delsym -Mucinex (generic is fine) Guaifenesin 1200 mg twice daily to help with cough and to thin out mucus * Seek medical care immediately, call 911, go to ER if you have chest pain, difficulty breathing, shortness of breath, inability to swallow. documented in this encounter [facility] History of Present illness Narrative 08-04-2021 Ara Baca APRN.[place] - 08/04/2021 11:35 AM EDT Note Date & Type Note Facility 08-04-2021 History of Presen t illness Narrative Subjective The history is provided by the patient. No educational speech language clinician was used. HPI Maria Isabel White is a 60 year old female who presents today for CC of cough, congestion, sore throat and headache. This started 4 days ago. She was exposed to covid by a coworker. She has used OTC mucinex with short term relief. She is not vaccinated for covid. She had covid November 2020 BP 136/78 Pulse 80 Temp 37.1 C (98.8 F) (Tympanic) Resp 18 Wt 102.8 kg (226 lb 9.6 oz) SpO2 97% Social History Tobacco Use Smoking status: Current Every Day Smoker Last attempt to quit: 01/30/2007 Years since quittin.5 Smokeless tobacco: Never Used Substance Use Topics Alcohol use: Yes Drug use: No PAST MEDICAL HISTORY Diagnosis Date Allergic rhinitis, cause unspecified Carcinoma in situ of breast left Depressive disorder, not elsewhere classified Essential hypertension, benign Mammographic microcalcification I have confirmed and edited as necessary, the [facility] Review of Systems Constitutional: Negative for chills and fever. HENT: Positive for congestion, sinus pain and sore throat. Negative for ear pain. Respiratory: Positive for cough. Negative for sputum production, shortness of breath and wheezing. Cardiovascular: Negative for chest pain. Gastrointestinal: Negative for abdominal pain, diarrhea, nausea and vomiting. Musculoskeletal: Negative for myalgias. Neurological: Positive for headaches. Objective Physical Exam Vitals and nursing note reviewed. HENT: Head: Normocephalic and atraumatic. Right Ear: Tympanic membrane, ear canal and external ear normal. Left Ear: Tympanic membrane, ear canal and external ear normal. Nose: Mucosal edema, congestion and rhinorrhea present. Mouth/Throat: Pharynx: Uvula midline. No oropharyngeal exudate or posterior oropharyngeal erythema. Cardiovascular: Rate and Rhythm: Normal rate and regular rhythm. Heart sounds: Normal heart sounds. Pulmonary: Effort: Pulmonary effort is normal. Breath sounds: Normal breath sounds. Lymphadenopathy: Head: Right side of head: No submental, submandibular or tonsillar adenopathy. Left side of head: No submental, submandibular or tonsillar adenopathy. Cervical: No cervical adenopathy. Skin: General: Skin is warm and dry. Neurological: Mental Status: She is alert. Psychiatric: Mood and Affect: Affect normal. ASSESSMENT/PLAN: 1. Exposure to COVID-19 virus - ICD9: V01.79, ICD10: Z20.822 (primary diagnosis) - COVID WITH FLUA+B, ROUTINE 2. Suspected COVID-19 virus infection - ICD9: V01.79, ICD10: Z20.822 Home isolation Testing ordered Comfort measures discussed - see patient instructions. When to seek higher level of care Notified in 24-48 hours with results, available on [employer] 3. Viral illness - ICD9: 079.99, ICD10: B34.9 - Discussed viral etiology and rationale for treatment. - Symptomatic treatment with prn analgesia - Supportive care with fluids and rest Diagnosis and treatment plan were discussed and questions were answered to the patient's satisfaction. Pt acknowledged understanding of concepts and follow up plan. Specific signs and symptoms that would indicate the need for higher level of care were discussed in detail warranting prompt ER evaluation. Ara Baca APRN.[place] documented in this encounter [facility] Evaluation note Note Date & Type Note Facility documented in this encounter [facility] Evaluation note Note Date & Type Note Facility documented in this encounter [facility] Health Concerns Infection Onset Date Last Indicated Resolved Time COVID-19 Rule-Out 08/04/2021 08/04/2021 Summary Purpose Family History No Family History Records FoundNo Family History Records Found Advance Directives No Advanced Directives Records FoundNo Advanced Directives Records Found Additional Source Comments Source Comments (unrecognize d section and content) In the event this informatio n is protected by the Federal Confidentiality of Alcohol and Drug Abuse Patient Records regulations: The Federal rules restrict any use of the information to criminally investigate or prosecute any alcohol or drug abuse patient.[facility] the event this information is protected by the Federal Confidentiality of Alcohol and Drug Abuse Patient Records regulations: The Federal rules restrict any use of the information to criminally investigate or prosecute any alcohol or drug abuse patient.[facility] Reason for Visit (unrecogniz ed section and content) Reason Comments Nasal Congestion With drainage, sore throat x 3 days & RIGHT ear pain x 1 week Care Teams (unrecognized sec tion and content) Adventure Therapist Relationship Specialty Start Date End Date Maye White MD PCP - General 08/09/08 INFORMATION SOURCE (unrecogn ized section and content) DATE CREATED AUTHOR AUTHOR'S ORGANIZ ATION 03/29/2023 [facility] FOR RECORDS PERTAINING TO PATIENTS WHO ARE OR HAVE BEEN ENROLLED IN A CHEMICAL DEPENDENCY/SUBSTANCEABUSE PROGRAM, SOME INFORMATION MAY BE OMITTED. This clinical summary was aggregated from multiple sources. Caution should be exercised in using it in the provision of clinical care. This summary normalizes information from multiple sources, and as a consequence, information in this document may materially change the coding, format and clinical context of patient data. In addition, data may be omitted in some cases. CLINICAL DECISIONS SHOULD BE BASED ON THE PRIMARY CLINICAL RECORDS. [facility]. provides no warranty or guarantee of the accuracy or completeness of information in this document.
== END | disposition home or self-care (01) ==
LOC: MTLAB 13:20
PROVIDERS: PCP Family Medicine; Referring Provider Family Medicine; Visit Provider Family Medicine
DX: I10 Essential (primary) hypertension (principal); E66.01 Morbid (severe) obesity due to excess calories; Z68.38 Body mass index [BMI] 38.0-38.9, adult
CPT/HCPCS: 36415; 80053; 83036; 84443; 85025

== ENCOUNTER → 2023-07-06 | Outpatient (CLI) | payer BC, SELFPAY ==
--- NOTE | 2023-07-06 13:12 | BI_ITS ---
MAMMOGRAPHY - BILATERAL SCREENING REASON FOR EXAM: Female, 62 years old. Routine annual screening examination. PERTINENT HISTORY: Personal history of breast cancer. Prior left lumpectomy with radiation treatment. TECHNIQUE: Digital bilateral breast leatha (3D mammographic acquisition) in the CC and MLO projections. 2-D mediolateral oblique (MLO) and craniocaudad (CC) views of both breasts were obtained. CAD: Full Field Digital Mammography with Computer Added Detection was performed. COMPARISON: Comparison is made with prior study dated September 26, 2021 and January 17, 2021. FINDINGS: Breast Composition: There are scattered areas of fibroglandular density. There are no dominant masses or suspicious calcifications. The patient is status post lumpectomy in the slightly upper midportion of the left breast with resultant postoperative scarring. Stable small benign-appearing bilateral axillary lymph nodes. No other significant abnormalities are identified. There has been no significant change since the prior study. BI/SCRN MAMM (CAD)W/LEATHA BILAT IMPRESSION: Stable bilateral screening mammogram. Yearly follow-up mammogram recommended. (A) ASSESSMENT CATEGORY: BIRADS Category 2: Benign. A letter regarding these results will be sent to the patient by the facility within 30 days. Approximately 10% of breast cancers are not detected by mammography. A normal mammogram should not delay biopsy of a clinically suspicious abnormality. [id number] Electronically Signed: Tello Madrid MD at 14:41 EDT ,
== END | disposition home or self-care (01) ==
LOC: OPBI 13:12
PROVIDERS: PCP Family Medicine; Referring Provider Family Medicine; Visit Provider Family Medicine
DX: Z12.31 Encounter for screening mammogram for malignant neoplasm of breast (principal); Z85.3 Personal history of malignant neoplasm of breast
CPT/HCPCS: 77063; 77067

== ENCOUNTER → 2023-12-29 | Outpatient (CLI) | payer BC, SELFPAY ==
--- NOTE | 2023-12-29 12:52 | CT_ITS ---
EXAM: CT CHEST, LUNG CANCER SCREENING WITHOUT INTRAVENOUS CONTRAST CLINICAL INDICATION: smoking cigarettes 44 pack-year history. Status post left lumpectomy. TECHNIQUE: Helically acquired images were obtained of the chest without intravenous contrast using low dose (LDCT) lung cancer screening protocol. This CT exam was performed using one or more of the following dose reduction techniques: automated exposure control, adjustment of the mA and/or kV according to patient size, and/or use of iterative reconstruction technique. COMPARISON: 08/27/2020 FINDINGS: LUNGS AND PLEURAL SPACES: Unchanged pleural-based nodule in the left upper lobe/lingula. This measures approximately 5 mm. Unchanged right upper lobe nodule measuring approximately 4 mm (series 2, image 78). No pneumothorax. HEART: No significant abnormality. Heart size is normal. No pericardial effusion. No significant coronary artery calcifications. MEDIASTINUM: No significant abnormality. No mediastinal or hilar adenopathy. Esophagus is unremarkable. No hiatal hernia. THYROID: No significant abnormality. No thyroid lesions. BONES/JOINTS: No acute osseous findings. Degenerative changes. SOFT TISSUES: Surgical clips within the left breast consistent with the given history. VASCULATURE: No significant abnormality. Thoracic aorta is non-dilated. LYMPH NODES: No significant abnormality. No enlarged lymph nodes. STOMACH AND BOWEL: Colonic diverticulosis. CT/Low Dose CT Lung Screening IMPRESSION: ACR Lung CT Screening Reporting And Data System (Lung-RADS) score: 2S - Benign Appearance or Behavior. Additional clinically significant or potentially clinically significant findings are described. Recommend continued annual screening with a low-dose CT (LDCT) in 12 months. Electronically Signed: Tom Blount DO at 21:48 EDT ,
--- NOTE | 2023-12-29 13:49 | BD_ITS ---
STUDY: DUAL ENERGY X-RAY ABSORPTIOMETRY / DXA REASON FOR EXAM: Female, 63 years old. 627.8Menopausal postmenopausal BONE DENSITY REASON FOR EXAM TECHNIQUE: Bone Mineral Density (BMD) measurements of lumbar spine and bilateral hips were obtained. COMPARISON: Comparison is made with prior study dated January 17, 2021. FINDINGS: Lumbar Spine (L1-L4): g/cm2 (0.729) / T-score (-2.9) / Z-score (-1.4) Findings are suggestive of osteoporosis with a high fracture risk. Left Femur Total: g/cm2 (0.992) / T-score (0.4) / Z-score (1.5) Left Femoral Neck: g/cm2 (0.661) / T-score (-1.7) / Z-score (-0.3) Right Femur Total: g/cm2 (0.884) / T-score (-0.5) / Z-score (0.6) Right Femoral Neck: g/cm2 (0.702) / T-score (-1.3) / Z-score (0.0) The T-Scores on the most recent prior examination were: Lumbar Spine (L1-L4): There has been worsening of bone density since the previous examination. Left Femur Total: which represents an improvement of 9%. Right Femur Total: which represents a worsening of 0.8%. BD/Dexa Bone Density Study IMPRESSION: The patient is considered osteoporotic as outlined below according to World Paul Organization (WHO) criteria with a high fracture risk. There has been worsening of bone density since the previous examination. Reference Information: The T-score is the number of standard deviations above or below the standard which is normal for young adults at their peak bone mineral density. The World Health Organization (WHO) interprets the T-scores as follows: Above -1 Normal bone density Between -1 and -2.5 Osteopenia Equal to / or below -2.5 Osteoporosis As a practical clinical guideline, osteopenia may be graded as follows: Mild -1 through -1.5 Moderate -1.6 through -2.0 Severe -2.1 through -2.4 The Z-score is the number of standard deviations above or below age-matched controls. A Z-score of less than -1.5 would be considered abnormal. References: 1. NIH Osteoporosis and Related Bone Diseases www osteo.org 2. International Society for Clinical Densitometry www iscd.org 3. National Osteoporosis Foundation www nof.org Electronically Signed: Tello Madrid MD at 13:31 EDT ,
--- OUTSIDE RECORDS SUMMARY | 2023-12-29 18:17 | XMS RPT_ITS | CCD ---
Author Organization [facility] Inform ion Partnership [facility] Care Team Providers Care Business Support Associate Name Role Phone Maye White MD Primary Care Provider HARINDER PENNINGTON Attending Unavailable MAYE HWITE Referring Unavailable MAYE WHITE Primary Care Unavailable MAYE WHITE Primary Care Unavailable MAYE WHITE Primary Care Unavailable HARINDER PENNINGTON Referring Unavailable MAYE WHITE Primary Care Unavailable HARINDER PENNINGTON Attending Unavailable HARINDER PENNINGTON Admitting Unavailable Allergies Allergy Classification Reported Allergen(s) Allergy Type Date of Onset Reaction(s) Facility (2 sources) Acetaminophen / HYDROcodone; Translations: [HYDROCODONE-ACET AMINOPHEN] Drug Allergy 4 [facility] Repository (2 sources) Angiotensin Converting Enzyme (Timmy) Inhibitors; Translations: [TIMMY INHIBITORS] Propensity to adverse reactions to drug (disorder) [address] [place] [address] Repository (2 sources) Codeine; Translations: [CODEINE] Drug Allergy [address] [place] [address] Repository Medications Current Medications Medication Drug Class(es) Dates Sig (Normalized) Sig (Original) amoxicillin 875 mg oral tablet (1 source) Penicillin-class Antibacterial Start: 11-29-2022 End: 12-06-2022 take 1 tablet by mouth twice daily amoxicillin (AMOXIL) 875 mg tablet Take 1 tablet by mouth two times a day for 7 days. 14 tablet 0 11/29/2022 12/06/2022 Active Comment on above: Take 1 tablet by jami th two times a day for 7 days. predniSONE 20 mg oral tablet (1 source) Start: 11-29-2022 End: 12-04-2022 take 2 tablets by mouth once daily predniSONE (DELTASONE) 20 mg tablet Take 2 tablets by mouth once daily for 5 days. 10 tablet 0 11/29/2022 12/04/2022 Active Comment on above: Take 2 tablets by [facility] once daily for 5 days. Completed/Discontinued Medications Medication Drug Class(es) Dates Sig (Normalized) Sig (Original) amLODIPine 10 mg oral tablet (3 sources) Dihydropyridine Calcium Channel Sergey Start: 10-21-2022 take 1 tablet by mouth once amLODIPine (NORVASC) 10 mg tablet Take 1 tablet by mouth every afternoon. 0 10/21/2022 Active Start: 12-01-2016 [facility] daily amLODIPine (NORVASC) 5 mg tablet Take 5 mg by mouth once daily. 0 12/01/2016 Active Comment on above: Take by mouth. Take 5 mg by mouth o nce daily. Take 1 tablet [facility] every afternoon. benzonatate 100 mg oral capsule (2 sources) Non-narcotic Antitussive Start: benzonatate (TESSALON PERLE) 100 mg capsule Take 1-2 capsules tid prn, no more than 6 in 24 hours. 30 capsule 0 08/04/2021 Active Comment on above: Take 1-2 capsules ti d prn, no more than 6 in 24 hours. 12 hr buPROPion hydrochloride 150 mg extended release oral tablet (1 source) Aminoketone Start: take 1 tablet by mouth twice daily buPROPion SR (ZYBAN SR; WELLBUTRIN SR) 150 mg 12 hr tablet Take 1 tablet by mouth two times a day. 0 11/07/2022 Active Comment on above: Take 1 tablet by [facility] two times a day. escitalopram 20 mg oral tablet (2 sources) Serotonin Reuptake Inhibitor Start: escitalopram oxalate(LEXAPRO 20 MG TAB) Take one(1) tablet daily. 0 10/18/2008 Active Comment on above: Take one(1) tablet d aily. irbesartan 75 mg oral tablet (2 sources) Angiotensin 2 Receptor Sergey Start: irbesartan(AVAPRO 75 MG TAB) one tablet daily 0 10/18/2008 Active Comment on above: one tablet daily levocetirizine dihydrochloride 5 mg oral tablet (1 source) Histamine-1 Receptor Antagonist Start: 08-22-2 023 take 1 tablet by mouth once levocetirizine 5 mg tablet Take 1 tablet by mouth every afternoon. 0 10/21/2022 Active Comment on above: Take 1 tablet by jami th every afternoon. 30/70 release 24 hr methylphenidate hydrochloride 60 mg extended release oral capsule (1 source) Central Nervous System Stimulant Start: 023 take 1 capsule by mouth once daily methylphenidate CD (METADATE CD) 60 mg biphasic capsule Take 1 capsule by mouth once daily. 0 11/11/2022 Active Comment on above: Take 1 capsule by [facility] once daily. pravastatin sodium 80 mg oral tablet (3 sources) HMG-CoA Reductase Inhibitor Start: 023 take 1 tablet by mouth once pravastatin (PRAVACHOL) 80 mg tablet Take 1 tablet by mouth every afternoon. 0 10/21/2022 Active Start: 12-01-2016 pravastatin (P RAVACHOL) 10 mg tablet Take by mouth. 0 12/01/2016 Active Comment on above: Take by mouth. Take 1 tablet by jami th every afternoon. valsartan 320 mg oral tablet (1 source) Angiotensin 2 Receptor Sergey Start: 10-21-2022 take 1 tablet by mouth once daily valsartan (DIOVAN) 320 mg tablet Take 1 tablet by mouth once daily. 0 10/21/2022 Active Comment on above: Take 1 tablet by jami once daily. Problems Problem Classification Problem Date Documented Date [...] (BMI) of 37.0 to 37.9 in adult (HCC)] Onset: 03-23-2023 Chronic Other nutritional; endocrine; and metabolic disorders (1 source) Body mass index (BMI) 37.0-37.9, adult; Translations: [Class 2 severe obesity due to excess calories with serious comorbidity and body mass index (BMI) of 37.0 to 37.9 in adult (HCC)] Onset: 03-23-2023 Chronic Other skin disorders (2 [...] Name Value Interpretation Reference Range Facil ity ANES POSTPROC EVALon 024 ANES POSTPROC EVAL HNO ID: [id number] Author: SAAR FORREST MD Service: Anesthesiology Author Type: Anesthesiologist Type: Anesthesia Postprocedure Evaluation Filed: 03/25/2023 15:30 Note Text: POST ANESTHESIA EVALUATION NOTE : 1960 Procedure Summary Date: 03/25/23 Room / Location: [place] [address] / [place] Anesthesia Start: 1239 Anesthesia Stop: 1341 Procedure: EXCISION SOFT TISSUE MASS OF POSTERIOR BACK = / > 5 CM (Right: Back upper) Diagnosis: Lesion of subcutaneous tissue (Lesion of subcutaneous tissue [L98.9]) Surgeons: Harinder Pennington MD Responsible Provider: Sara Forrest MD Anesthesia Type: MAC ASA Status: 3 Anesthesia Type: MAC Last Vitals Vitals Value Taken Time BP 144/66 03/25/23 1415 Temp 36.3 ?C (97.3 ?F) 03/25/23 1347 HR SpO2 64 03/25/23 1415 Resp 24 03/25/23 1417 SpO2 93 % 03/25/23 1417 Vitals shown include unfiled device data. Post Anesthesia Patient Status Patient Evaluation: PACU. PACU/ICU Patient Condition: stable. Anticipated Disposition: phase 2 then home. Neurological Status: aware and responsive. Pulmonary Status: breathing comfortably on room air Airway Control: returned to baseline unsupported. Cardiovascular Status: stable. Pain Management: clinically adequate - multimodal analgesia pain management approach Postoperative Hydration: acceptable. Intraoperative Events: no significant anesthesia events Post Operative Nausea/Vomiting Status: no significant post operative nausea or vomiting Recommendation: continue current plan of care. Anesthesia Observations No Documentation SIGNATURE: Sara Forrest MD PATIENT NAME: Maria Isabel Hammond DATE: March 25, 2023 TIME: 3:30 PM CSN: [id number] [facility] ANES PRE-OPon 03-25-2023 ANES PRE-OP HNO ID: [id number] Author: IMTIAZ CARRERA MD Service: Anesthesiology Author Type: Physician Type: Anesthesia Preprocedure Evaluation Filed: 03/25/2023 11:50 Note Text: ANESTHESIOLOGY DAY OF SURGERY NOTE : 1960 Procedure Information Date/Time: 03/25/23 1149 Procedure: EXCISION SOFT TISSUE MASS OF POSTERIOR BACK = / > 5 CM (Right) Location: [place] OR04 / [place] Surgeons: Harinder Pennington MD Estimated body mass index is 37.77 kg/m? as calculated from the following: Height as of this encounter: 167.6 cm (5' 6 ). Weight as of this encounter: 106.1 kg (234 lb). Most recent hematocrit and potassium results: No results found for this basename: HCT,HEMATOCRIT,K,POTASSI UM Relevant Problems CARDIO (+) Essential (primary) hypertension I - PHYSICAL EVALUATION AIRWAY Patient intubated: No. Tracheostomy tube not present Mallampati: III. TM distance: >3 FB. Neck ROM: full ROM without neurological symptoms. Mouth opening: adequate. Short neck: no. Thick neck: no DENTAL Dental findings: teeth intact. Additional exam findings: no II - ANESTHESIA PLAN ASA Score: 3 Anesthetic Plan: general Airway type: LMA NPO Status: adequate Beta Sergey Monitoring Plan Monitoring plan: Standard ASA. Post Procedure Analgesic Plan Postoperative analgesic plan: parenteral or oral opioids and multimodal analgesia. Informed Consent Anesthetic risks, benefits, alternatives, personnel and consent discussed: yes. Patient / Responsible Democrat agrees to proceed: yes Patient / Surrogate agrees to blood products: yes DNR status not reviewed with patient and/or family prior to surgery. Significant changes in the patient condition since the History and Physical, not otherwise documented in primary service progress note: no. Potential Anesthesia issues that may suggest increased risk of complications or contraindication to planned procedure: none. Vitals Value Taken Time BP 141/75 03/25/23 1007 Pulse Resp 18 03/25/23 1007 Temp 36.7 ?C (98.1 ?F) 03/25/23 1007 SpO2 96 % 03/25/23 1007 Facility-Administered Medications as of 03/25/2023 Medication Dose Route Frequency - lidocaine (PF) 10 mg/mL (1 %) 1-2 mg injection (XYLOCAINE) 0.1-0.2 mL INTRADERMAL PRN - lactated ringers iv infusion 5-30 mL/hr INTRAVENOUS CONTINUOUS - NaCl 0.9% iv flush bag 20 mL INTRAVENOUS PRN - ceFAZolin iv piggyback 2 g in D5W (iso-osmotic) 100 mL (ANCEF) 2 g INTRAVENOUS Pre-Op Once - [COMPLETED] acetaminophen 1,000 mg tab(s) (TYLENOL) 1,000 mg ORAL Pre-Op Once - [COMPLETED] promethazine 12.5 mg tab(s) (PHENERGAN) 12.5 mg ORAL Pre-Op Once Outpatient Medications as of 03/25/2023 Medication Sig - levocetirizine 5 mg tablet Take 1 tablet by mouth every afternoon. - methylphenidate CD (METADATE CD) 60 mg biphasic capsule Take 1 capsule by mouth once daily. - irbesartan (AVAPRO) 75 mg tablet Take 75 mg by mouth daily at bedtime. - valsartan (DIOVAN) 320 mg tablet Take 1 tablet by mouth once daily. - amLODIPine (NORVASC) 10 mg tablet Take 1 tablet by mouth every afternoon. - pravastatin (PRAVACHOL) 80 mg tablet Take 1 tablet by mouth every afternoon. I have interviewed and examined the patient. I have reviewed the medical record and/or the pre-anesthesia evaluation, pertinent labs, and test results. This contains updated information obtained within 48 hours of Surgery/Procedure. SIGNATURE: Imtiaz Carrera MD PATIENT NAME: Maria Isabel Hammond DATE: March 25, 2023 TIME: 11:50 AM CSN: [id number] [facility] HISTORY PHYSICALon HISTORY PHYSICAL HNO ID: [id number] Author: HARINDER PENNINGTON MD Service: General Surgery Author Type: Physician Type: H&P Filed: 03/25/2023 10:57 Note Text: HISTORY AND PHYSICAL Maria Isabel Hammond 1960 REFERRING PHYSICIAN: Maye White MD CHIEF [...] tissue (primary encounter diagnosis). PAST MEDICAL HISTORY PAST MEDICAL HISTORY Diagnosis Date ADD (attention [...] disorder Vitamin D deficiency PAST SURGICAL HISTORY PAST SURGICAL HISTORY Procedure Laterality Date APPENDECTOMY [...] W/WO RMVL TUBE OVARY 03/02/2005 Hysterectomy, TAHIR CURRENT MEDICATIONS Current Outpatient Medications Medication Sig desonide (TRIDESILON) 0.05 % cream Apply 1 Each to affected area two times a day. fluticasone prp-sod.chl,bicarb 50 mcg- 0.9 % ksps Use 2 Sprays in the nose two times a day. IPRATROPIUM BROMIDE NASAL Use 1 Webb in the nose every 6 hours as [...] this visit. ALLERGIES: Timmy Inhibitors, Codeine, and Hydrocodone-Acetaminophe n PERSONAL HISTORY: SOCIAL HISTORY Social History Tobacco Use Smoking status: Every Day Packs/day: .5 Types: Cigarettes Last attempt to quit: 01/30/2007 Years since quittin.1 Smokeless tobacco: Never Substance Use Topics Alcohol use: Yes Comment: social Drug use: No FAMILY HISTORY: FAMILY HISTORY FAMILY HISTORY Problem Relation Age of Onset [...] entered by the nurse and reviewed by me Nursing Notes: Anais Rockwell RN 03/18/2023 2:06 PM Signed REVIEW OF SYSTEMS: General: The patient denies fatigue, denies weight loss, NOTES weight gain, denies feeling hot, and denies feelings of cold. Eyes: The patient denies gla (more content not included)... [facility] OPERATIVE NOon 03-25-2023 OPERATIVE NO HNO ID: [id number] Author: HARINDER PENNINGTON MD Service: General Surgery Author Type: Physician Type: Operative Report Filed: 03/25/2023 13:36 Note Text: OPERATIVE/PROCEDURE REPORT LOG ID: [id number] SURGERY/PROCEDURE DATE: 03/25/2023 INCISION/PROCEDURE START TIME: 12:55 PM INCISION CLOSE/PROCEDURE END TIME: 1 ;33 PM SURGEON(S)/PROCEDURALIST (S) AND CELLAR SUPERVISOR(S): Surgeon(s) and Role: * Harinder Pennington MD - Primary Physician Hydrogen Operator: Smita Hudson (Cabrera) SURGERY/PROCEDURE(S): Excision of a 10 cm subcutaneous lesion right upper back ANESTHESIA: General SURGERY/PROCEDURE DETAILS: Patient was brought into the operating room. Placed in supine position. Under excellent MAC anesthetic right posterior shoulder area was sterilely prepped and draped in the usual fashion. 1% lidocaine plain was injected. 8 cm incision was made. Electrocautery was used to come down through the subcutaneous tissues. Retractors were used and I was able to get around the subcutaneous fatty lesion. I did that circumferentially all the way around it and then posteriorly at the end it all the way off of the posterior upper shoulder muscles. Its measurements were 9.6 x 6.5 x 2.5 cm. I injected local into the wound. I irrigated out any loose fat that was in the wound. I used electrocautery for good my stasis. I placed Surgicel in the wound. The wound was then brought together with deep dermal stitches of 3-0 Vicryl then a running 4-0 Monocryl. Steri-Strips were applied sterile dressings were applied and the patient tolerated the procedure well. Smita DIANE was my nutrition assistant. She assisted with retraction, visualization and performed skin closure. No additional surgeons or qualified residents were available. PRE-OP/PRE-PROCEDURE DIAGNOSIS: 10 cm subcutaneous lesion to right upper back POST-OP/POST-PROCEDURE DIAGNOSIS: Same as Preop ESTIMATED BLOOD LOSS: < 15 mls SPECIMENS: Cutaneous lesion back IMPLANTABLE DEVICES: NONE DRAINS: None COMPLICATIONS: None CLOSURE TECHNIQUE: Primary PARTICIPATION IN SURGERY/PROCEDURE: I/primary surgeon/proceduralist performed the procedure with assistance. SIGNATURE: Harinder Pennington III, MD PATIENT NAME: Maria Isabel Hammond DATE: March 25, 2023 TIME: 1:19 PM Normal [facility] SURGICAL PATHOLOGYon 024 CASE REPORT [facility] Comment on above: Order Comment: Speci men Type: TISSUE SPECIMEN Ordering Facility: [facility] Address: [address] [place] [address] Result Comment: Surg [facility] Pathology Report Case: [id number] Authorizing Provider: Harinder Pennnigton MD Collected: 03/25/2023 01:12 PM Ordering Location: [facility] Surgery Received: 03/25/2023 03:10 PM Pathologist: Randy Zarate MD Specimen: SOFT TISSUE, right upper back subcutaneous tissue Performed By: #### S #### [facility] CLIA [id number] [address] [place] [address] [place] CLINICAL HISTORY Normal [facility] Comment on above: Order Comment: Speci rj Type: TISSUE SPECIMEN Ordering Facility: [facility] Address: [address] [place] [address] Result Comment: Pre- op diagnosis: Lesion of subcutaneous tissue [L98.9] Performed By: #### S #### [facility] CLIA [id number] [address] [place] [address] [place] FINAL DIAGNOSIS Normal [facility] Comment on above: Order Comment: Speci rj Type: TISSUE SPECIMEN Ordering Facility: [facility] Address: [address] [place] [address] Result Comment: Soft tissue, right upper back subcutaneous, excision: - Lipoma. Performed By: #### S #### [facility] CLIA [id number] [address] [place] [address] [place] FINAL PERFORMING LAB Normal [facility] Comment on above: Order Comment: Speci men Type: TISSUE SPECIMEN Ordering Facility: [facility] Address: [address] [place] [address] Result Comment: Diag nostic interpretation performed at [facility], [address] [place] [address] CLIA# [id number] Binder Roller: Evan Singh M.D. Performed By: #### S #### [facility] CLIA [id number] [address] [place] [address] [place] GROSS DESCRIPTION A. SOFT TISSUE Normal [facility] Comment on above: Order Comment: Speci men Type: TISSUE SPECIMEN Ordering Facility: [facility] Address: [address] [place] [address] Result Comment: Rece ived in formalin labeled as right upper back subcutaneous tissue is a segment of adipose tissue measuring 7.7 x 6.5 x 3.0 cm. Sectioning reveals finn-yellow homogenous cut surfaces. Rac Specialist sections submitted in 3 cassettes. ML March 26, 2023 11:44 AM Gross examination performed at [facility], [address] [place] [address] Performed By: #### S #### [facility] CLIA [id number] [address] [place] [address] [place] HISTORY PHYSICALon HISTORY PHYSICAL HNO ID: [id number] Author: JOSH GOMEZ PA-C Service: ? Author Type: Physician Hydrogen Operator Type: H&P Filed: 03/23/2023 15:01 Note Text: HISTORY AND PHYSICAL EXAMINATION SERVICE DATE: 03/23/2023 SERVICE TIME: 3:01 PM PRIMARY CARE PHYSICIAN: Maye White MD Assessment Patient has the following medical conditions which may affect edwige-operative course: Essential (primary) hypertension Assessment: BP TODAY IN CLINIC 146/73. STABLE ON RX. 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 Other hyperlipidemia Assessment: Stable on RX ADHD Assessment: Stable on RX, will hold DOS Smoker Assessment: 1/2 ppd x 40 yrs Watt Activity Status Index: METS: Climb a flight of stairs or walk up a hill (5.50 METs) DASI Score: 5.5 Patient denies any chest pain or undue shortness of breath with the above physical activity. Clinical Frailty Scale: 3. Well, with treated comorbid disease STOP-Bang Score: Has or is being treated for high blood pressure BMI greater than 35 kg/m2 Patient over 50 years old Has a large neck Denies snoring loudly Denies feeling tired, fatigued, or sleepy during the daytime Has not been observed to stop breathing or choking/gasping during sleep Non-male patient STOP-Bang Score: 4 [id number] Score: Age: <65 Sex: female CHF history: No Hypertension history: Yes Stroke/TIA/thromboemboli sm history: No Vascular disease history: No Diabetes history: No [id number] Score: 2 ARISCAT Score: Age: 51-80 Preoperative SpO2: >=96% Respiratory infection in the last month: No Preoperative anemia: Yes Surgical incision: peripheral Duration of surgery: <2 hrs Emergency procedure: No ARISCAT Score: 14 ANESTHESIA FINDINGS: Intubation History: No history of difficult intubation. No abnormal airway history Significant Anesthesia Considerations: potential postop nausea/vomiting Airway History: No history of difficult airway No abnormal airway history I - PHYSICAL EVALUATION AIRWAY Patient intubated: No. Tracheostomy tube not present Mallampati: III. TM distance: >3 FB. Neck ROM: full ROM without neurological symptoms. Mouth opening: adequate. Short neck: no. Thick neck: no Lip Bite Test: I DENTAL Additional comments: + crowns. II - ANESTHESIA PLAN Anesthetic Plan: other Anesthetic plan additional comments: *PACC/TCI - anesthesia choice. Beta Sergey Monitoring Plan Post Procedure Analgesic Plan Prepared for Surgery: optimally prepared for surgery. Per PACC guidelines no other testing is required CONSULTS: Patient does not require consults for optimization at this time Planned Anesthetic: other anesthesia choice REASON FOR VISIT: Maria Isabel Hammond is a 62 year old female who is scheduled for Procedure(s): EXCISION SOFT TISSUE MASS OF POSTERIOR BACK = / > 5 CM (Right) at the request of Dr. Pennington, Harinder Samson MD for consultation. My final recommendation will be communicated back to the requesting physician by way of shared medical record or letter. Subjective The patient has the following: ACTIVE PROBLEM LIST Anxiety Ductal Carcinoma in Situ (Dcis) of Breast Essential (Primary) Hypertension Major Depressive Disorder Class 2 Severe Obesity Due to Excess Calories With Serious Comorbidity and Body Mass Index (Bmi) of 37.0 to 37.9 in Adult (Hcc) Other Hyperlipidemia Adhd Smoker COVID-19 Immunization Status Overdue - Covid-19 Vaccine (1) Never done No completion, postpone, frequency change, or communication history exists for this topic. CHIEF COMPLAINT: Pre-anesthesia optimization HPI: Maria Isabel Hammond is a 62 year old female presenting for pre-anesthesia consultation. Pt has history of noticed mass over right shoulder, noticed about 2 months ago. Above procedure recommended to manage symptoms. Procedure scheduled on 03/25/2023 at [place]. REVIEW OF SYSTEMS: General: No weight loss, malaise or fevers. Neurological: No history of TIA's, stroke, DIESEL MECHANIC APPRENTICE tumor, impaired sensorium, hemiplegia, paraplegia or quadraplegia. No neurological symptoms or problems. Respiratory: Positive for: tobacco use (1/2 ppd x 40 yrs). Negative for: asthma, COPD, current cough, dyspnea, URI < 2 weeks and obstructive sleep apnea. Cardiovascular: Positive for: hyperlipidemia and hypertension Negative for: arrhythmia, atrial fibrillation, CAD, chest pain, DVT/PE and murmur/valvular heart disease. GI: Positive for: heartburn (OTC prn) Negative for: dysphagia, GERD, irritable bowel syndrome, inflammatory bowel disease, liver disease and ETOH >2 drinks/day. : No history of dysuria, frequency or inco (more content not included)... [facility] Visit ([facility] ) -------- MARIA ISABEL HAMMOND ([id number]) 1960 F Date Time Provider Department 03/18/23 1:30 PM HARINDER PENNINGTON During your visit today, we recorded the following information about you: Temperature Pulse Blood pressure Weight 98.3 degrees 108/minute 130/72 107.1 kg Height 1.676 m Anais Rockwell RN 03/18/2023 2:06 PM Signed REVIEW OF SYSTEMS: General: The patient denies fatigue, denies weight loss, NOTES weight gain, denies feeling hot, and denies feelings of cold. Eyes: The patient denies glaucoma, denies eye injury/surgery, wears glasses or contacts. Ear/Nose/Throat: The patient NOTES allergies, NOTES hayfever, denies ear infections, and denies bloody noses. Cardiovascular: The patient denies chest pain, denies heart disease, NOTES high blood pressure,denies cardiac stent, denies prior heart attack, denies irregular heart beat, denies high cholesterol, denies poor circulation, denies heart failure, other cardiac issues, denies claudication, denies cold feet, denies peripheral arterial stent. Respiratory: The patient denies tuberculosis, denies pneumonia, denies frequent cough, denies pulmonary embolism, denies shortness of breath, and denies coughing up blood. Gastrointestinal: The patient denies difficulty swallowing, denies acid reflux, denies ulcers, denies vomiting, denies jaundice/hepatitis, denies gallbladder problems, denies black or tarry stools, denies hemorrhoids, denies bleeding from rectum, denies diverticulitis, denies constipation, denies diarrhea, denies loss of stool control, and denies hernias. Kidney/Bladder: The patient denies kidney stones, denies urine infections, and denies bloody urine. Skin: The patient denies a history of skin cancer, denies bleeding/changing moles, and denies a history of skin rash. Neurologic: The patient denies a history of epilepsy/convulsions, denies headaches, denies head/spinal injuries, and denies stroke/TIA. Psychiatric: The patient denies psychiatric medications, NOTES depression, and denies voices, denies substance abuse. Endocrine: The patient denies thyroid disorders, denies diabetes, and denies hormonal problems. Hematologic: The patient denies a history of bruising, denies bleeding, and denies anemia, denies blood clots. Infections: The patient denies a history of measles and mumps, denies rheumatic fever, and denies sexually transmitted diseases. Musculoskeletal: The patient denies back pain/injury, denies back problems, denies sciatica, denies knee/foot trouble, denies arthritis, or denies gout. When was patient's last Mammogram screening? Unknown Last Colonoscopy: 2019 NITESH Parsons Daniel P, MD 03/23/2023 11:53 AM Signed HISTORY AND PHYSICAL Maria Isabel Zuniga Santi 1960 REFERRING PHYSICIAN: Maye White MD CHIEF [...] % ksps Use 2 Sprays in the (more content not included)... Normal [facility] CNOVon 11-29-2022 CNOV Office Visit (UCWSTR ) -------- MARIA ISABEL HAMMOND ([id number]) 1960 F Date Time Provider Department 11/29/22 2:00 PM EDGARDO GARCIA WSTR During your visit today, we recorded the following information about you: Temperature Pulse Respiration Blood pressure 97.7 degrees 86/minute 16/minute 134/86 Weight 107 kg Edgardo Garcia PA-C 11/29/2022 2:23 PM Signed This note was created using BugHerdriter. Subjective Maria Isabel Hammond is a 61 year old female. HPI [...] ICD9: 461.8, ICD10: J01.40 (primary diagnosis) - W (more content not included)... Normal [facility] Vital Signs Date Time Vital Sign Value Performing Clinician Susannah devries 11-29-2022 13:56-0400 Body temperature 97.7 [degF] Edgardo Garcia PA-C Work Phone: [facility] 11-29-2022 13:56-0400 Body weight 106.96 kg Edgardo Hernandezy PA-C Work Phone: [facility] 11-29-2022 13:56-0400 Diastolic blood pressure 86 mm[Hg] Edgardo Hernandezy PA-C Work Phone: [facility] 11-29-2022 13:56-0400 Heart rate 86 /min Edgardo Hernandezy PA-C Work Phone: [facility] 11-29-2022 13:56-0400 Respiratory rate 16 /min Edgardo Hernandezy PA-C Work Phone: [facility] 11-29-2022 13:56-0400 SaO2% (BldA) [Mass fraction] 96 % Edgardo Madeline PA-C Work Phone: [facility] 11-29-2022 13:56-0400 Systolic blood pressure 134 mm[Hg] Edgardo Hernandezhope PA-C Work Phone: [facility] 08-04-2021 11:18-0400 Body temperature 98.8 [degF] Ara Phuong FOREIGN DIPLOMAT.LEARNING AND DEVELOPMENT INTERN Work Phone: [facility] 08-04-2021 11:18-0400 Body weight 102.78 kg Ara Phuong FOREIGN DIPLOMAT.LEARNING AND DEVELOPMENT INTERN Work Phone: [facility] 08-04-2021 11:18-0400 Diastolic blood pressure 78 mm[Hg] Ara Phuong FOREIGN DIPLOMAT.LEARNING AND DEVELOPMENT INTERN Work Phone: [facility] 08-04-2021 11:18-0400 Heart rate 80 /min Ara Phuong FOREIGN DIPLOMAT.LEARNING AND DEVELOPMENT INTERN Work Phone: [facility] 08-04-2021 11:18-0400 Respiratory rate 18 /min Ara Phuong FOREIGN DIPLOMAT.LEARNING AND DEVELOPMENT INTERN Work Phone: [facility] 08-04-2021 11:18-0400 SaO2% (BldA) [Mass fraction] 97 % Ara Phuong FOREIGN DIPLOMAT.LEARNING AND DEVELOPMENT INTERN Work Phone: [facility] 08-04-2021 11:18-0400 Systolic blood pressure 136 mm[Hg] Ara Phuong FOREIGN DIPLOMAT.LEARNING AND DEVELOPMENT INTERN Work Phone: [facility] Encounters Encounter Date Encounter Type Care Provider Facility Start: 03-25-2023 End: 03-25-2023 ambulatory MAYE WHITE Facility:[facility] Start: 03-23-2023 End: 03-23-2023 ambulatory MAYE WHITE Facility:[facility] Start: 03-23-2023 Encounter for other preprocedural examination MAYE WHITE [facility] Start: 03-18-2023 End: 03-19-2023 ambulatory HARINDER PENNINGTON Facility:[facility] Start: 11-29-2022 End: 11-29-2022 ambulatory MAYE WHITE Facility:[facility] Start: 11-29-2022 End: 11-29-2022 Patient encounter procedure Edgardo Garcia PA-C Work Phone: [facility] Comment on above: Acute pansinusitis, recurrence not specified (Primary Dx); Middle ear effusion, right Start: 08-04-2021 End: 08-04-2021 Patient encounter procedure Ara Phuong REX Work Phone: [facility] Comment on above: Exposure to COVID-19 virus (Primary Dx); Suspected COVID-19 virus infection; Viral illness Plan of Treatment Date Care Activity Detail Author Start: 10-31-2022 Influenza vaccination Influenza Vacc ine (#1) [facility] Start: 03-02-2022 Depression Assessment Depression Ass essment [facility] Start: 10-31-2021 Influenza vaccination INFLUENZ A (Season Ended) [facility] Start: 08-04-2021 End: 08-18-2021 Influenza virus A and B RNA and SARS-CoV-2 (COVID-19) N gene panel - Respiratory specimen by LANI with probe detection COVID WITH FLUA+B, ROUTINE Microbiology Routine Exposure to COVID-19 virus Expected: 08/04/2021, Expires: 08/18/2021 [facility] Work Phone: Comment on above: Expected: 08/04/2021 , Expires: 08/18/2021 Start: 12-20-2011 SHINGRIX VACCINE (1 of 2) SHINGRIX VACCINE (1 of 2) [facility] Start: 2006 COLOGUARD (FIT-DNA) COLOGUARD (FIT-D NA) [facility] Start: 2006 Colonoscopy COLONOSCOPY [facility] Start: 2006 COLORECTAL CANCER SCREENING COLORECTAL CANCER SCREENING [facility] Start: [address] COLONOGRAPHY [facility] Start: 2006 DIABETES SCREEN DIABETES SCREEN [facility] Start: 2006 Diabetes Screening Diabetes Screenin g [facility] Start: 2006 FECAL OCCULT BLOOD FECAL OCCULT BLOO D [facility] Start: 2006 Lipid 1996 panel - S pierre or Plasma Lipid Screening [facility] Start: 2006 LIPID SCREEN LIPID SCREEN [facility] Start: 2006 SIGMOIDOSCOPY SIGMOIDOSCOPY [facility] Start: 2001 Mammography [facility] Start: 12-20-1991 HPV TESTING HPV TESTING [facility] Start: 1982 PAP TESTING PAP TESTING [facility] Start: 1980 Urine microalbumin profile [facility] Start: 12-20-1979 HEPATITIS C SCREENING HEPATITIS C SC REENING [facility] Start: 12-20-1979 HIV SCREENING HIV SCREENING [facility] Start: 1973 Adult depression screening assessment DEPRESSION SCREENING [facility] Start: 12-20-1967 PNEUMOCOCCAL (1 - PCV) PNEUMOCOCCAL (1 - PCV) [facility] Start: 12-20-1967 Pneumococcal vaccination Pneum ococcal Vaccine (1 - PCV) [facility] Start: 1966 COVID-19 VACCINE (#1) COVID-19 VACCI NE (#1) [facility] Start: 06-19-1962 Covid-19 Vaccine (#1) Covid-19 Vacci ne (#1) [facility] Immunizations Immunization Date Immunization Notes Care Provider Fa cility 11-27-2021 influenza virus vacc ine, unspecified formulation Edgardo Garcia PA-C Work Phone: [facility] Payers Date Payer Category Payer Unknown [employer] PPO OOS [id number] 2021-Present [phone] [address] [place] [address] PPO [id number] 2021 Unknown [employer] SS PPO [id number] 2021-Present [phone] [address] [place] [address] PPO [id number] 2021 Unknown [id number] Social History Date Type Detail Facility Start: 08-04-2021 End: 09-30-2023 Tobacco smoking status NHIS Smokes tobacco daily [facility] End: 01-30-2007 History of tobacco use Smoker [facility] Start: 08-04-2021 End: 11-29-2022 Tobacco use and exposure Smokeless tobacco non-user [facility] Start: 08-04-2021 End: 11-29-2022 Alcohol intake Current drinker of alcohol (finding) [facility] Start: 1960 Sex Assigned At Not on file [facility] Start: 07-25-2021 End: 08-04-2021 Exposure to SARS-CoV-2 (event) Not sure [facility] Work Phone: End: 01-30-2007 History of tobacco use Cigarette Smoker [facility] Start: 11-29-2022 History of Social function [facility] Start: 11-29-2022 Tobacco use panel [facility] Progress note 03-23-2023 Note Date & Type Note Facility 03-23-2023 Note HNO ID: [id number] Author: HARINDER PENNINGTON MD Service: ? Author Type: Physician Type: Progress Notes Filed: 03/23/2023 11:53 Note Text: HISTORY AND PHYSICAL Maria Isabel Hammond 1960 REFERRING PHYSICIAN: Maye White MD CHIEF [...] a day. IPRATROPIUM BROMIDE NASAL Use 1 Webb in the nose every 6 hours as [...] entered by the nurse and reviewed by ia Nursing Notes: Anais Rockwell RN 03/18/2023 2:06 PM Signed REVIEW OF SYSTEMS: General: The patient denies fatigue, denies weight loss, NOTES weight gain, denies feeling hot, and denies feelings of cold. Eyes: The patient denies glaucoma, denies eye injury/surgery, wears glasses or contacts. Ear/Nose/Throat: The patient NOTES allerg (more content not included)... [facility] Progress note 11-29-2022 Note Date & Type Note Facility 11-29-2022 Note HNO ID: [id number] Author: Edgardo Garcia PA-C Service: ? Author Type: Physician Hydrogen Operator Type: Progress Notes Filed: 11/29/2022 2:23 PM Note Text: This note was created using BugHerdriter. Subjective Maria Isabel Hammond is a 61 year old female. HPI [...] worsen. 2. Midd (more content not included)... [facility] History of Present illness Narrative 11-29-2022 Edgardo Garcia PA-C - 11/29/2022 2:13 PM EDT Note Date & Type Note Facility 11-29-2022 History of Presen t illness Narrative This note was created using CIBDOter. Subjective Maria Isabel Hammond is a 61 year old female. HPI [...] effusion, right - ICD9: 381.4, ICD10: H65.91 Edgardo Garcia PA-C documented in this encounter [facility] Instructions 08-04-2021 Patient Instructions Note Date & Type Note Facility 08-04-2021 Instructions Ara Baca APRN.[place] - 08/04/2021 11:40 AM EDT covid test ordered You will be notified in 24 -48 hours, results available on [facility] [place] [facility] Home isolation until covid results are back [...] inability to swallow. documented in this encounter [facility] History of Present illness Narrative 08-04-2021 Ara Baca APRN.[place] - 08/04/2021 11:35 AM EDT Note Date & Type Note Facility 08-04-2021 History of Presen t illness Narrative Subjective The history is provided by the patient. No language therapist was used. HPI Maria Isabel White is [...] have confirmed and edited as necessary, the [facility] Review of Systems Constitutional: Negative for [...] in 24-48 hours with results, available on [employer] 3. Viral illness - ICD9: 079.99, ICD10: [...] Ara Baca APRN.[place] documented in this encounter [facility] Evaluation note Note Date & Type Note Facility Evaluation note Diagnosis Exposure to COVID-19 virus- Primary Suspected COVID-19 virus infection Viral illness Unspecified viral infection, in conditions classified elsewhere and of unspecified site documented in this encounter [facility] Evaluation note Note Date & Type Note Facility Evaluation note Diagnosis Acute pansinusitis, recurrence not specified- Primary Middle ear effusion, right documented in this encounter [facility] Health Concerns Infection Onset Date Last Indicated [...] or prosecute any alcohol or drug abuse patient.[facility] the event this information is protected by the Federal Confidentiality of Alcohol and Drug Abuse Patient Records regulations: The Federal rules restrict any use of the information to criminally investigate or prosecute any alcohol or drug abuse patient.[facility] Reason for Visit (unrecogniz ed section and content) Reason Comments Cough cough, ST and SINHA x 4 days Reason Comments Nasal Congestion With drainage, sore throat x 3 days & RIGHT ear pain x 1 week Care Teams (unrecognized sec tion and content) Business Support Associate Relationship Specialty Start Date End Date Maye White MD PCP - General 08/09/08 Business Support Associate Relationship Specialty Start Date End Date Maye White MD PCP - General 08/09/08 INFORMATION SOURCE (unrecogn ized section and content) DATE CREATED AUTHOR 03/24/2023 [facility] DATE CREATED AUTHOR AUTHOR'S ORGANIZ ATION 03/29/2023 [facility] FOR RECORDS PERTAINING TO PATIENTS WHO ARE [...] BE BASED ON THE PRIMARY CLINICAL RECORDS. [facility] [employer] [facility]. provides no warranty or guarantee of the accuracy or completeness of information in this document.
== END | disposition home or self-care (01) ==
LOC: CT 13:18 → OPBD 13:18
PROVIDERS: PCP Family Medicine; Referring Provider Family Medicine; Visit Provider Family Medicine
DX: F17.210 Nicotine dependence, cigarettes, uncomplicated (principal); N95.9 Unspecified menopausal and perimenopausal disorder
CPT/HCPCS: 71271; 77080

== ENCOUNTER → 2024-09-20 | Outpatient (CLI) | payer BC, SELFPAY ==
[2024-09-20 18:45] LABS: AST(SGOT) 20 U/L (<=31); Alanine Aminotransfer ALT/SGPT 27 U/L (<=34); Albumin, Serum 4.5 g/dL (3.4-4.8); Alkaline Phosphatase 80 U/L (35-104); Anion Gap 15 (5-15); BUN 15 mg/dL (4-19); BUN/Creat Ratio 21.7 RATIO (10-20); Calcium,Total 9.9 mg/dL (7.6-11.0); Carbon Dioxide 18.9 mmol/L (21.0-32.0); Chloride 104 mmol/L (98-108); Globulin 3.4 g/dL (2.2-4.2); Glucose 90 mg/dL (70-99); Potassium 3.9 mmol/L (3.3-5.1)
== END | disposition home or self-care (01) ==
LOC: MFPLAB 14:15
PROVIDERS: PCP Family Medicine; Referring Provider Family Medicine; Visit Provider Family Medicine
DX: F98.8 Other specified behavioral and emotional disorders with onset usually occurring in childhood and adolescence (principal)
CPT/HCPCS: 36415; 80053

== ENCOUNTER → 2025-01-24 | Outpatient (CLI) | payer BC, SELFPAY ==
[2025-01-24 12:22] LABS: Hematocrit 45.1 % (37-47); Hemoglobin 15.5 g/dL (12.0-15.0); Immature Granulocytes Count 0.060 X10^3/uL (0.0-0.0); Mean Corp Hgb Conc 34.4 g/dL (32-36); Mean Corpuscular Volume 92.8 fL (81-99); Mean Platelet Vol. 10.6 fl (6.2-12.0); NRBC Flagged by Analyzer 0 % (0-5); Platelet Count 353 K/mm3 (150-450); RBC Distribution Width CV 13.1 % (11.6-14.6); RBC Distribution Width SD 44.7 fl (35.1-43.9); Red Blood Count 4.86 M/mm3 (4.2-5.4); White Blood Count 11.9 K/mm3 (4.4-11.0)
--- OUTSIDE RECORDS SUMMARY | 2025-01-24 12:43 | XMS RPT_ITS | CCD ---
Author Organization [facility] Care Team Providers Care Cable Testers Helper Name Role Phone Maye White MD Primary Care Provider Dr. Maye White Primary Care Provider [phone] Dr. Maye White Referring Provider Dr. Drew Worrell Attending Provider [phone] Maye White MD Primary Care Provider [phone] MAYE WHITE Primary Care Unavailable HARINDER PENNINGTON Referring Unavailable MAYE WHITE Primary Care Unavailable HARINDER PENNINGTON Attending Unavailable HARINDER PENNINGTON Admitting Unavailable Maye White MD Primary Care Provider HARINDER PENNINGTON Attending Unavailable MAYE WHITE Referring Unavailable MAYE WHITE Primary Care Unavailable Dr. Maye White MD Primary Care Provider Dr. Maye White MD Attending Provider [phone] Dr. Maye White MD Referring Provider Maye White Referring Unavailable Maye White Primary Care Unavailable Maye White Attending Unavailable Maye White Primary Care Unavailable Maye White Attending Unavailable Maye White Referring Unavailable Maye White Primary Care Unavailable Maye White Attending Unavailable Allergies Allergy Classification Reported Allergen(s) Allergy Type Date of Onset Reaction(s) Facility (3 sources) Acetaminophen / HYDROcodone; Translations: [HYDROCODONE-ACET AMINOPHEN] Drug Allergy 4 GI Upset [facility] Repository (3 sources) Angiotensin Converting Enzyme (Timmy) Inhibitors; Translations: [TIMMY INHIBITORS] Propensity to adverse reactions to drug (disorder) 4 Cough [facility] Repository (3 sources) Codeine; Translations: [CODEINE] Drug Allergy 4 GI Upset [facility] Other [place] Repository Medications Current Medications Medication Drug Class(es) Dates Sig (Normalized) Sig (Original) amLODIPine 10 mg oral tablet (11 sources) Dihydropyridine Calcium Channel Sergey Start: 10-21-2022 take 1 tablet by mouth once amLODIPine (NORVASC) 10 mg tablet Take 1 tablet by mouth every afternoon. 10/21/2022 Active Start: 12-01-2016 End: 03-23-2023 take 1 tablet by mouth once daily Amlodipine 5 MG tablet Active 5 mg PO DAILY December 01, 2016 12:00am Comment on above: Take by mouth. Take 5 mg by mouth o nce daily. Take 1 tablet by jami th every afternoon. amoxicillin 875 mg oral tablet (1 source) Penicillin-class Antibacterial Start: 2022 End: 2022 take 1 tablet by mouth twice daily amoxicillin (AMOXIL) 875 mg tablet Take 1 tablet by mouth two times a day for 7 days. 14 tablet 0 11/29/2022 12/06/2022 Active Comment on above: Take 1 tablet by jami th two times a day for 7 days. escitalopram 20 mg oral tablet (9 sources) Serotonin Reuptake Inhibitor Start: 2008 End: 2023 take 1 tablet by mouth once daily Escitalopram Oxalate 20 MG tablet Active 20 mg PO DAILY December 01, 2016 12:00am Comment on above: Take one(1) tablet d aily. fluticasone prp-sod.chl,bicarb 50 mcg- 0.9 % ksps (1 source) fluticasone prp-sod.chl,bicarb 50 mcg- 0.9 % ksps Use 2 Sprays in the nose two times a day. Active ibuprofen 200 mg oral capsule (1 source) Nonsteroidal Anti-inflammatory Drug take 2 capsules by mouth every six hours as needed Ibuprofen 200 mg cap Take 2 capsules by mouth every 6 hours as needed for pain. Active Ipratropium (1 source) Anticholinergic IPRATROPIUM BROM GRETTA NASAL Use 1 [place] in the nose every 6 hours as needed (nasal congestion, cough, rhinorrhea). Active levocetirizine dihydrochloride 5 mg oral tablet (2 sources) Histamine-1 Receptor Antagonist Start: 2022 take 1 tablet by mouth once levocetirizine 5 mg tablet Take 1 tablet by mouth every afternoon. 10/21/2022 Active Comment on above: Take 1 tablet by jami th every afternoon. 30/70 release 24 hr methylphenidate hydrochloride 60 mg extended release oral capsule (2 sources) Central Nervous System Stimulant Start: 2022 take 1 capsule by mouth once daily methylphenidate CD (METADATE CD) 60 mg biphasic capsule Take 1 capsule by mouth once daily. 11/11/2022 Active Comment on above: Take 1 capsule by mo [facility] once daily. nortriptyline 10 mg oral capsule (1 source) Tricyclic Antidepressant take 1 capsule by mouth once daily at bedtime nortriptyline (PAMELOR) 10 mg capsule Take 10 mg by mouth daily at bedtime. Active pravastatin sodium 80 mg oral tablet (11 sources) HMG-CoA Reductase Inhibitor Start: 2022 take 1 tablet by mouth once pravastatin (PRAVACHOL) 80 mg tablet Take 1 tablet by mouth every afternoon. 10/21/2022 Active Start: 12-01-2016 End: 03-23-2023 take 1 tablet by mouth once daily Pravastatin 10 MG tablet Active 10 mg PO DAILY December 01, 2016 12:00am Comment on above: Take by mouth. Take 1 tablet by jami every afternoon. predniSONE 20 mg oral tablet (1 source) Start: 3 End: 3 take 2 tablets by mouth once daily predniSONE (DELTASONE) 20 mg tablet Take 2 tablets by mouth once daily for 5 days. 10 tablet 0 11/29/2022 12/04/2022 Active Comment on above: Take 2 tablets by mo [facility] once daily for 5 days. valsartan 320 mg oral tablet (2 sources) Angiotensin 2 Receptor Sergey Start: 3 take 1 tablet by mouth once daily valsartan (DIOVAN) 320 mg tablet Take 1 tablet by mouth once daily. 10/21/2022 Active Comment on above: Take 1 tablet by jami once daily. vortioxetine 10 mg oral tablet (1 source) take 1 tablet by mouth once daily vortioxetine (TRINTELLIX) 10 mg tablet Take 10 mg by mouth once daily. Active Completed/Discontinued Medications Medication Drug Class(es) Dates Sig (Normalized) Sig (Original) acetaminophen 325 mg / HYDROcodone bitartrate 5 mg oral tablet (6 sources) Opioid Agonist Start: 12-04-2017 End: 12-11-2017 Hydrocodone-Acetami nophen 1 TABLET tablet Discontinued 1 - 2 {tbl} PO EVERY 4 HOURS NEEDED as needed for Severe Pain () 30 7 0 December 04, 2017 12:00am December 10, 2017 12:00am December 11, 2017 12:08am Acute appendicitis Unspecified acute appendicitis Start: 12-04-2017 End: 12-11-2017 take 1 tablet by mouth every four hours as needed Hydrocodone-Acetaminophen Discontinued 1 - 2 TABLET PO EVERY 4 HOURS NEEDED 30 7 December 04, 2017 12:00am December 11, 2017 12:08am benzonatate 100 mg oral capsule (3 sources) Non-narcotic Antitussive Start: 08-04-2021 End: 03-23-2023 benzonatate (TESSALON PERLE) 100 mg capsule Take 1-2 capsules tid prn, no more than 6 in 24 hours. 30 capsule 08/04/2021 03/23/2023 Discontinued (Course of therapy completed) Comment on above: Take 1-2 capsules ti d prn, no more than 6 in 24 hours. 12 hr buPROPion hydrochloride 150 mg extended release oral tablet (2 sources) Aminoketone Start: 11-07-2022 End: 03-23-2023 take 1 tablet by mouth twice daily buPROPion SR (ZYBAN SR; WELLBUTRIN SR) 150 mg 12 hr tablet Take 1 tablet by mouth two times a day. 11/07/2022 03/23/2023 Discontinued (Course of therapy completed) Comment on above: Take 1 tablet by [facility] two times a day. desonide 0.5 mg/ml topical cream (1 source) Corticosteroid End: 03-25-2023 desonide (TRIDESILON) 0.05 % cream Apply 1 Each to affected area two times a day. 03/25/2023 Discontinued (Clinical Decision) irbesartan 75 mg oral tablet (3 sources) Angiotensin 2 Receptor Sergey Start: 10-18-2008 End: 03-23-2023 irbesartan(AVAPRO 75 MG TAB) one tablet daily 0 10/18/2008 03/23/2023 Discontinued (Course of therapy completed) Comment on above: one tablet daily Problems Active Problems Problem Classification Problem Date Documented Date Episodic/Chronic Anxiety disorders (1 source) Anxiety; Translations: [Anxiety disorder, unspecified] Onset: 04-02-2022 03-23-2023 Chronic Appendicitis and other appendiceal conditions (6 sources) Acute appendicitis; Translations: [Unspecified acute appendicitis] 02-04-2018 Episodic Attention-deficit, conduct, and disruptive behavior disorders (1 source) Attention deficit hyperactivity disorder; Translations: [Attention-deficit hyperactivity disorder, unspecified type] Onset: 03-23-2023 03-23-2023 Chronic Cancer of breast (9 sources) Intraductal carcinoma in situ of breast; 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 Disorders of lipid metabolism (2 sources) Other hyperlipidemia; Translations: [Hyperlipidemia] Onset: 03-23-2023 03-23-2023 Chronic Disorders usually diagnosed in infancy, childhood, or adolescence (1 source) Other specified behavioral and emotional disorders with onset usually occurring in childhood and adolescence; Translations: [Other specified behavioral and emotional disorders with onset usually occurring in childhood and adolescence] Onset: 09-26-2024 Chronic Essential hypertension (2 sources) Essential (primary) hypertension; Translations: [Essential hypertension] Onset: 06-22-2021 03-23-2023 Chronic Immunizations and screening for infectious disease (2 sources) Contact with or exposure to other viral diseases; Translations: [Exposure to COVID-19 virus] Episodic Menopausal disorders (1 source) Unspecified menopausal and perimenopausal disorder; Translations: [Unspecified menopausal and perimenopausal disorder] Onset: 09-30-2023 Chronic Mood disorders (1 source) Major depressive disorder; Translations: [Major depressive disorder, single episode, unspecified] Onset: 03-23-2023 03-23-2023 Chronic Other lower respiratory disease (6 sources) Dyspnea; Translations: [Dyspnea, unspecified] 12-18-2020 Episodic Other nutritional; endocrine; and metabolic disorders [...] nutritional; endocrine; and metabolic disorders (1 source) Severe obesity; Translations: [Class 2 severe obesity due to excess calories with serious comorbidity and body mass index (BMI) of 37.0 to 37.9 in adult] Onset: 03-23-2023 03-23-2023 Chronic Other upper respiratory infections (1 source) Acute pansinusitis; Translations: [Acute pansinusitis, unspecified] 11-29-2022 Episodic Otitis media and related conditions (1 source) Finding of fluid behind tympanic membrane; Translations: [Unspecified nonsuppurative otitis media, right ear] 11-29-2022 Episodic Substance-related disorders (3 sources) Nicotine dependence, unspecified, uncomplicated; Translations: [Smoker] Onset: 03-23-2023 03-23-2023 Chronic Viral infection (7 sources) Disease caused by 2019-nCoV; Translations: [COVID-19] Episodic Past or Other Problems Problem Classification Problem Date Documented Da te Episodic/Chronic Other skin disorders (2 sources) Disorder of the skin and subcutaneous tissue, unspecified; Translations: [Lesion of subcutaneous tissue] Onset: 03-18-2023 Episodic Results Test Name Value Interpretation Reference Range Facility Anion gap in Serum or Plasma Ordered By: Maye White on 09-20-2024 Anion gap [Moles/Vol] 15 mmol/L 5-15 [facility] BUN/creatinine ratioOrdered By: Maye White on 09-20-2024 Urea nitrogen/Creatinine [Mass ratio] 21.7 mg/mg High 10-20 [facility] Bilirubin, totalOrdered By: Maye White on 09-20-2024 Bilirubin [Mass/Vol] 0.32 mg/dL 0.00-1.30 [facility] Carbon dioxide, total [Moles /volume] in Central venous bloodOrdered By: Maye White on 09-20-2024 CO2 [Moles/Vol] 18.9 mmol/L Low 21.0-32.0 [facility] Chloride assayOrdered By: Carl White on 07-22-2025 Chloride [Moles/Vol] 104 mmol/L 98-108 [facility] Comprehensive Metabolic Prof ilon 09-20-2024 Albumin [Mass/Vol] 4.5 g/dL Normal 3.4-4.[address] [facility] Comment on above: Order Comment: Order Date: 09/20/24 Order Info: 0786-1 - CMP Performed By: #### L [id number] #### [facility] [address] [place], [address] Albumin/Globulin [Mass ratio] 1.3 {ratio} Normal 0.9-2.4 [facility] Comment on above: Order Comment: Order Date: 09/20/24 Order Info: 0786-1 - CMP Performed By: #### L [id number] #### [facility] [address] [place], [address] ALK PHOS 80 U/L Normal 35-104 [facility] Comment on above: Order Comment: Order Date: 09/20/24 Order Info: 0786-1 - CMP Performed By: #### L [id number] #### [facility] [address] [place], [address] ALT [Catalytic activity/Vol] 27 U/L Normal <=34 [facility] Comment on above: Order Comment: Order Date: 09/20/24 Order Info: 0786-1 - CMP Performed By: #### L [id number] #### [facility] [address] [place], [address] AST [Catalytic activity/Vol] 20 U/L Normal <=31 [facility] Comment on above: Order Comment: Order Date: 09/20/24 Order Info: 0786-1 - CMP Performed By: #### L [id number] #### [facility] [address] [place], [address] Bilirubin [Mass/Vol] 0.32 mg/dL Normal 0.00-1.30 [facility] Comment on above: Order Comment: Order Date: 09/20/24 Order Info: 0786-1 - CMP Performed By: #### L [id number] #### [facility] [address] [place], [address] BUN/CRE 21.7 RATIO High 10-20 [facility] Comment on above: Order Comment: Order Date: 09/20/24 Order Info: 0786-1 - CMP Performed By: #### L [id number] #### [facility] [address] [place], [address] Calcium [Mass/Vol] 9.9 mg/dL Normal 7.6-11.[address] [facility] Comment on above: Order Comment: Order Date: 09/20/24 Order Info: 0786-1 - CMP Performed By: #### L [id number] #### [facility] [address] [place], [address] Chloride [Moles/Vol] 104 mmol/L Normal 98-108 [facility] Comment on above: Order Comment: Order Date: 09/20/24 Order Info: 0786-1 - CMP Performed By: #### L [id number] #### [facility] [address] [place], [address] CO2 [Moles/Vol] 18.9 mmol/L Low 21.0-32.0 [facility] Comment on above: Order Comment: Order Date: 09/20/24 Order Info: 0786-1 - CMP Performed By: #### L [id number] #### [facility] [address] [place], [address] Creatinine [Mass/Vol] 0.67 mg/dL Low 0.70-1.20 [facility] Comment on above: Order Comment: Order Date: 09/20/24 Order Info: 0786-1 - CMP Performed By: #### L [id number] #### [facility] [address] [place], [address] GAP 15 Normal 5-15 [facility] Comment on above: Order Comment: Order Date: 09/20/24 Order Info: 0786-1 - CMP Performed By: #### L [id number] #### [facility] [address] [place], [address] GFR/1.73 sq M.predicted among non-blacks MDRD (S/P/Bld) [Vol rate/Area] 99 mL/min/{1.73_m2} Normal >60 [facility] Comment on above: Order Comment: Order Date: 09/20/24 Order Info: 0786-1 - CMP Result Comment: mL/m in/1.73m2 CKD-EPI Creatinine Equation (2020) Performed By: #### L [id number] #### [facility] [address] [place], [address] Globulin (S) [Mass/Vol] 3.4 g/dL Normal 2.2-4.2 [facility] Comment on above: Order Comment: Order Date: 09/20/24 Order Info: 0786-1 - CMP Performed By: #### L [id number] #### [facility] [address] [place], [address] Glucose [Mass/Vol] 90 mg/dL Normal 70-[address] [facility] Comment on above: Order Comment: Order Date: 09/20/24 Order Info: 0786-1 - CMP Performed By: #### L [id number] #### [facility] [address] [place], [address] Potassium [Moles/Vol] 3.9 mmol/L Normal 3.3-5.1 [facility] Comment on above: Order Comment: Order Date: 09/20/24 Order Info: 0786-1 - CMP Performed By: #### L [id number] #### [facility] [address] [place], [address] Sodium [Moles/Vol] 138 mmol/L Normal 133-[address] [facility] Comment on above: Order Comment: Order Date: 09/20/24 Order Info: 0786-1 - CMP Performed By: #### L [id number] #### [facility] [address] [place], [place], [address] T PROT 7.9 g/dL Normal 5.9-8.4 [facility] Comment on above: Order Comment: Order Date: 09/20/24 Order Info: 0786-1 - CMP Performed By: #### L [id number] #### [facility] [address] [place], [place], [address] Urea nitrogen [Mass/Vol] 15 mg/dL Normal 4-19 [facility] Comment on above: Order Comment: Order Date: 09/20/24 Order Info: 0786-1 - CMP Performed By: #### L [id number] #### [facility] [address] [place], [place], [address] Glomerular filtration rate ( GFR) estimation/1.73 sq m using serum, plasma, or whole bOrdered By: Maye White on 09-20-2024 GFR/1.73 sq M.predicted among non-blacks MDRD (S/P/Bld) [Vol rate/Area] 99 mL/min/{1.73_m2} >60 [facility] Comment on above: mL/min/1.73m2 CKD-EP I Creatinine Equation (2020) Laboratory - Chemistry and C hemistry - challengeOrdered By: Maye White on 09-20-2024 AST [Catalytic activity/Vol] 20 U/L <32 [facility] Potassium measurement (mass/ volume)Ordered By: Maye White on 09-20-2024 Potassium (Unsp spec) [Mass/Vol] 3.9 mmol/L 3.3-5.1 [facility] Serum creatinine measurement (mass/volume)Ordered By: Maye White on 09-20-2024 Creatinine [Mass/Vol] 0.67 mg/dL Low 0.70-1.20 [facility] Serum globulin measurementOr dered By: Maye White on 09-20-2024 Globulin (S) [Mass/Vol] 3.4 g/dL 2.2-4.2 [facility] Serum glucose measurement (m ass/volume)Ordered By: Maye White on 09-20-2024 Glucose [Mass/Vol] 90 mg/dL 70-[address] [facility] Serum or plasma alanine mcclendon otransferase (ALT) measurementOrdered By: Maye White on 09-20-2024 ALT [Catalytic activity/Vol] 27 U/L <35 [facility] Serum or plasma albumin lacey urement (mass/volume)Ordered By: Maye White on 09-20-2024 Albumin [Mass/Vol] 4.5 g/dL 3.4-4.[address] [facility] Serum or plasma albumin/glob ulin mass ratioOrdered By: Maye White on 09-20-2024 Albumin/Globulin [Mass ratio] 1.3 {ratio} 0.9-2.4 [facility] Serum or plasma alkaline sheri sphatase measurementOrdered By: Maye White on 09-20-2024 ALP [Catalytic activity/Vol] 80 U/L 35-104 [facility] Serum or plasma calcium lacey urement (mass/volume)Ordered By: Maye White on 09-20-2024 Calcium [Mass/Vol] 9.9 mg/dL 7.6-11.[address] [facility] Serum or plasma urea nitroge n measurement (mass/volume)Ordered By: Maye White on 09-20-2024 Urea nitrogen [Mass/Vol] 15 mg/dL 4-19 [facility] Sodium levelOrdered By: Maye White on 09-20-2024 Sodium [Moles/Vol] 138 mmol/L 133-[address] [facility] Total proteinOrdered By: Verito White on 09-20-2024 Protein [Mass/Vol] 7.9 g/dL 5.9-8.[address] [facility] Dexa Bone Density Studyon Dexa Bone Density Study [facility] Imaging Services [address] [place], [place] [address] Dexa Bone Density Study MR#: [id number] Acct: [id number] Name: MARIA ISABEL HAMMOND Rep #: [id number] : 1960 F 63 From: Tello jimenez MD PCP: Dr. Maye White MD Status: [facility] Study: Dexa Bone Density Study Date of Exam: 12/29/23 Exam# [id number] Ordering Dr: Maye White MD [id number] STUDY: DUAL ENERGY X-RAY ABSORPTIOMETRY / DXA REASON FOR EXAM: Female, 63 years old. 627.8Menopausal postmenopausal BONE DENSITY REASON FOR EXAM TECHNIQUE: Bone Mineral Density (BMD) measurements of lumbar spine and bilateral hips were obtained. COMPARISON: Comparison is made with prior study dated January 17, 2021. FINDINGS: Lumbar Spine (L1-L4): g/cm2 (0.729) / T-score (-2.9) / Z-score (-1.4) Findings are suggestive of osteoporosis with a high fracture risk. Left Femur Total: g/cm2 (0.992) / T-score (0.4) / Z-score (1.5) Left Femoral Neck: g/cm2 (0.661) / T-score (-1.7) / Z-score (-0.3) Right Femur Total: g/cm2 (0.884) / T-score (-0.5) / Z-score (0.6) Right Femoral Neck: g/cm2 (0.702) / T-score (-1.3) / Z-score (0.0) The T-Scores on the most recent prior examination were: Lumbar Spine (L1-L4): There has been worsening of bone density since the previous examination. Left Femur Total: which represents an improvement of 9%. Right Femur Total: which represents a worsening of 0.8%. BD/Dexa Bone Density Study IMPRESSION: The patient is considered osteoporotic as outlined below according to World Paul Organization (WHO) criteria with a high fracture risk. There has been worsening of bone density since the previous examination. Reference Information: The T-score is the number of standard deviations above or below the standard which is normal for young adults at their peak bone mineral density. The World Health Organization (WHO) interprets the T-scores as follows: Above -1 Normal bone density Between -1 and -2.5 Osteopenia Equal to / or below -2.5 Osteoporosis As a practical clinical guideline, osteopenia may be graded as follows: Mild -1 through -1.5 Moderate -1.6 through -2.0 Severe -2.1 through -2.4 The Z-score is the number of standard deviations above or below age-matched controls. A Z-score of less than -1.5 would be considered abnormal. References: 1. NIH Osteoporosis and Related Bone Diseases www osteo.org 2. International Society for Clinical Densitometry www iscd.org 3. National Osteoporosis Foundation www nof.org Electronically Signed: Tello Madrid MD at 13:31 EDT Reading Location ID and State: [address] [place] [address] , Service support , CC: Dr. Maye White MD School Vocational Educator: Signed Normal [facility] Low Dose CT Lung Screeningon 12-29-[address] Lung Screening [facility] Imaging Services [address] [place] [id number] Lung Screening MR#: [id number] Acct: [id number] Name: MARIA ISABEL HAMMOND Rep #: [id number] : 1960 F 63 From: Tom foster DO PCP: Dr. Maye White MD Status: [facility] Study: Low Dose CT Lung Screening Date of Exam: 12/28 Exam# [id number] Ordering Dr: Maye White MD [id number] EXAM: CT CHEST, LUNG CANCER SCREENING WITHOUT INTRAVENOUS CONTRAST CLINICAL INDICATION: smoking cigarettes 44 pack-year history. Status post left lumpectomy. TECHNIQUE: Helically acquired images were obtained of the chest without intravenous contrast using low dose (LDCT) lung cancer screening protocol. This CT exam was performed using one or more of the following dose reduction techniques: automated exposure control, adjustment of the mA and/or kV according to patient size, and/or use of iterative reconstruction technique. COMPARISON: 08/27/2020 FINDINGS: LUNGS AND PLEURAL SPACES: Unchanged pleural-based nodule in the left upper lobe/lingula. This measures approximately 5 mm. Unchanged right upper lobe nodule measuring approximately 4 mm (series 2, image 78). No pneumothorax. HEART: No significant abnormality. Heart size is normal. No pericardial effusion. No significant coronary artery calcifications. MEDIASTINUM: No significant abnormality. No mediastinal or hilar adenopathy. Esophagus is unremarkable. No hiatal hernia. THYROID: No significant abnormality. No thyroid lesions. BONES/JOINTS: No acute osseous findings. Degenerative changes. SOFT TISSUES: Surgical clips within the left breast consistent with the given history. VASCULATURE: No significant abnormality. Thoracic aorta is non-dilated. LYMPH NODES: No significant abnormality. No enlarged lymph nodes. STOMACH AND BOWEL: Colonic diverticulosis. CT/Low Dose CT Lung Screening IMPRESSION: ACR Lung CT Screening Reporting And Data System (Lung-RADS) score: 2S - Benign Appearance or Behavior. Additional clinically significant or potentially clinically significant findings are described. Recommend continued annual screening with a low-dose CT (LDCT) in 12 months. Electronically Signed: Tom Blount DO at 21:48 EDT , CC: Dr. Maye White MD School Vocational Educator: Signed Normal [facility] Absolute lymphocyte countOrd ered By: Maye White on 04-07-2023 Lymphocytes Auto (Unsp spec) [#/Vol] 2.12 10*3/uL 0.83-4.51 [facility] Automated lymphocyte count a s percentage of total leukocytesOrdered By: Maye White on 04-07-2023 Lymphocytes/100 WBC Auto (Unsp spec) 24.9 % 19-41 [facility] Basophil percentageOrdered B y: Maye White on 04-07-2023 Basophils/100 WBC (Bld) 0.6 % 0-1 [facility] Bilirubin [Mass/Vol] 0.30 mg/dL 0.20-1.00 [facility] Comment on above: For patients on eltr ombopag therapy, use of Dimension [place] TBIL is not recommended. Chloride [Moles/Vol] 107 mmol/L 98-107 [facility] Eosinophils/100 WBC (Bld) 2.3 % 0-5 [facility] Glucose [Mass/Vol] 107 mg/dL 74-[address] [facility] Comment on above: Fasting Glucose resu lt from 100 to 125 mg/dL suggests IMPAIRED HOMEOSTASIS per A.D.A. criteria. Hemoglobin (Bld) [Mass/Vol] 15.0 g/dL 12.0-15.0 [facility] Monocytes/100 WBC (Bld) 9.0 % 0-10 [facility] Neutrophils (Bld) [#/Vol] 5.4 10*3/uL 2.0-7.7 [facility] Neutrophils/100 WBC (Bld) 62.7 % 47-70 [facility] Potassium [Moles/Vol] 3.9 mmol/L 3.5-5.1 [facility] Comment on above: Slight Hemolysis, Re sult may be falsely increased. Protein [Mass/Vol] 7.9 g/dL 6.4-8.[address] [facility] Sodium [Moles/Vol] 134 mmol/L 136-[address] [facility] WBC (Bld) [#/Vol] 8.5 10*3/uL 4.4-11.[address] [facility] Determination of erythrocyte mean corpuscular volume (MCV)Ordered By: Maye White on 04-07-2023 MCV (RBC) [Entitic vol] 91.8 fL 81-99 [facility] Erythrocyte distribution wid th ratioOrdered By: Maye White on 04-07-2023 Erythrocyte distribution width (RBC) [Ratio] 13.1 % 11.6-14.6 [facility] Erythrocyte distribution wid th standard deviationOrdered By: Maye White on 04-07-2023 Erythrocyte distribution width (RBC) [Entitic vol] 43.9 fL 35.1-43.9 [facility] Hematocrit Auto (Bld) [Volum e fraction]Ordered By: Maye White on 04-07-2023 Hematocrit (Bld) [Volume fraction] 44.6 % 37-47 [facility] Immature granulocytes/100 WB C Auto (Bld)Ordered By: Maye White on 04-07-2023 Immature granulocytes/100 WBC (Bld) 0.500 % 0.0-0.9 [facility] Comment on above: IG% - Immature Granu locytes (promyelocytes, myelocytes and metamyelocytes) > 1% indicates that a LEFT SHIFT is Present. Laboratory - Chemistry and C hemistry - challengeOrdered By: Maye White on 04-07-2023 Albumin/Globulin [Mass ratio] 1.1 {ratio} 0.9-2.4 [facility] ALP [Catalytic activity/Vol] 86 U/L 45-117 [facility] ALT [Catalytic activity/Vol] 41 U/L 13-56 [facility] CO2 [Moles/Vol] 22.0 mmol/L 21.0-32.0 [facility] Globulin (S) [Mass/Vol] 3.8 g/dL 2.2-4.2 [facility] Urea nitrogen/Creatinine [Mass ratio] 23.8 mg/mg 10-20 [facility] Laboratory - Hematology and Cell countsOrdered By: Maye White on 04-07-2023 MCH (RBC) [Entitic mass] 30.9 pg 27.0-32.0 [facility] MCHC (RBC) [Mass/Vol] 33.6 g/dL 32-36 [facility] Nucleated RBC/100 WBC (Bld) [Ratio] 0 % 0-5 [facility] Platelet mean volume (Bld) [Entitic vol] 10.6 fL 6.2-12.0 [facility] Platelets (Bld) [#/Vol] 328 10*3/uL 150-450 [facility] No Panel InformationOrdered By: Maye White on 04-07-2023 Estimated GFR (MDRD) Amer 124 mL/min >60 [facility] Comment on above: GFR Calc Estimated GFR (MDRD) Non-Af Amer 102 mL/min >60 [facility] Comment on above: Non- GFR Calc RBC Auto (Bld) [#/Vol]Ordere d By: Maye White on 04-07-2023 RBC (Bld) [#/Vol] 4.86 10*6/uL 4.2-5.4 [facility] Serum or plasma calcium lacey urement (mass/volume)Ordered By: Maye White on 04-07-2023 Calcium [Mass/Vol] 9.6 mg/dL 8.5-10.[address] [facility] Serum or plasma creatinine m easurement (mass/volume)Ordered By: Maye White on 04-07-2023 Creatinine [Mass/Vol] 0.63 mg/dL 0.55-1.02 [facility] Comment on above: The validity of the calculated GFR & GFRAA in patients over 70 years has not been determined. Clinical correlation is essential. Serum or plasma thyroid stim ulating hormone (TSH) measurement (units/volume)Ordered By: Maye Whiet on 04-07-2023 TSH Qn 2.17 uIU/mL 0.358-3.74 [facility] Serum or plasma urea nitroge n measurement (mass/volume)Ordered By: Maye White on 04-07-2023 Urea nitrogen [Mass/Vol] 15 mg/dL 7-18 [facility] Thin prep Papanicolaou smear with manual screeningOrdered By: Maye White on 04-07-2023 Thin prep Papanicolaou smear with manual screening 4.1 g/dL 3.2-5.0 [facility] Thin prep Papanicolaou smear with manual screening 23 U/L 15-37 [facility] Comment on above: Slight Hemolysis, Re sult may be falsely increased. Thin prep Papanicolaou smear with manual screening 5 5-15 [facility] Whole blood hemoglobin A1c/t otal hemoglobin ratio (mass fraction)Ordered By: Maye White on 04-07-2023 HbA1c (Bld) [Mass fraction] 5.5 % 3.8-5.6 [facility] Comment on above: Normal < 5.7 % Predi abetic 5.7 - 6.4 % Diabetic >or= 6.5 % Please note range changes. ANES POSTPROC EVALon 024 ANES POSTPROC EVAL HNO ID: [id number] Author: SARA FORREST MD Service: Anesthesiology Author Type: Anesthesiologist Type: Anesthesia Postprocedure Evaluation Filed: 03/25/2023 15:30 Note Text: POST ANESTHESIA EVALUATION NOTE : 1960 Procedure Summary Date: 03/25/23 Room / Location: [place] [address] / [place] Anesthesia Start: 1239 Anesthesia Stop: 1341 [...] March 25, 2023 TIME: 3:30 PM CSN: [id number] [facility] ANES PRE-OPon 03-25-2023 ANES PRE-OP HNO ID: [id number] Author: IMTIAZ CARRERA MD Service: Anesthesiology Author Type: Physician Type: Anesthesia Preprocedure Evaluation Filed: 03/25/2023 11:50 Note Text: ANESTHESIOLOGY DAY OF SURGERY NOTE : 1960 Procedure Information Date/Time: 03/25/23 1149 Procedure: EXCISION SOFT TISSUE MASS OF POSTERIOR BACK = / > 5 CM (Right) Location: [place] OR04 / [place] Surgeons: Harinder Pennington MD Estimated body mass index is 37.77 kg/m? as calculated from the following: Height as of this encounter: 167.6 cm (5' 6). Weight as of this encounter: 106.1 kg (234 lb). Most recent hematocrit and potassium results: No results found for this basename: HCT,HEMATOCRIT,K,POTAS SIUM Relevant Problems CARDIO (+) Essential (primary) hypertension [...] and consent discussed: yes. Patient / Responsible Alliance Party agrees to proceed: yes Patient / Surrogate [...] March 25, 2023 TIME: 11:50 AM CSN: [id number] [facility] HISTORY PHYSICALon HISTORY PHYSICAL HNO ID: [id number] Author: HARINDER PENNINGTON MD Service: General Surgery [...] a day. IPRATROPIUM BROMIDE NASAL Use 1 [place] in the nose every 6 hours as [...] this visit. ALLERGIES: Timmy Inhibitors, Codeine, and Hydrocodone-Acetaminop hen PERSONAL HISTORY: SOCIAL HISTORY Social History Tobacco [...] entered by the nurse and reviewed by ne Nursing Notes: Anais Rockwell RN 03/18/2023 2:06 PM Signed REVIEW OF SYSTEMS: General: The patient denies fatigue, denies weight loss, NOTES weight gain, denies feeling hot, and denies feelings of cold. Eyes: The patient denies gla (more content not included)... Normal [facility] OPERATIVE NOon 03-25-2023 OPERATIVE NO HNO ID: [id number] Author: HARINDER PENNINGTON MD Service: General Surgery Author Type: Physician Type: Operative Report Filed: 03/25/2023 13:36 Note Text: OPERATIVE/PROCEDURE REPORT LOG ID: [id number] SURGERY/PROCEDURE DATE: 03/25/2023 INCISION/PROCEDURE START TIME: 12:55 PM INCISION CLOSE/PROCEDURE END TIME: 1 ;33 PM SURGEON(S)/PROCEDURALI ST(S) AND DOCK ATTENDANT(S): Surgeon(s) and Role: * Harinder Pennington MD - Primary Physician Substation Technician: Smita Hudson (Cabrera) SURGERY/PROCEDURE(S): Excision of a [...] the procedure well. Smita DIANE was my assistant professor of radiology. She assisted with retraction, visualization and performed [...] March 25, 2023 TIME: 1:19 PM Normal [facility] SURGICAL PATHOLOGYon 024 CASE REPORT [facility] Comment on above: Order Comment: Speci men Type: TISSUE SPECIMEN Ordering Facility: [facility] Address: [address] [place] [address] Result Comment: [facility] Pathology Report Case: [id number] Authorizing Provider: Harinder Pennington MD Collected: 03/25/2023 01:12 PM Ordering Location: [facility] Surgery Received: 03/25/2023 03:10 PM Pathologist: Randy Zarate MD Specimen: SOFT TISSUE, right upper back subcutaneous tissue Performed By: #### S #### [facility] CLIA [id number] [address] [place] [address] [place] CLINICAL HISTORY Normal [facility] Comment on above: Order Comment: Speci men Type: TISSUE SPECIMEN Ordering Facility: [facility] Address: [address] [place] [address] Result Comment: Pre- op diagnosis: Lesion of subcutaneous tissue [L98.9] Performed By: #### S #### [facility] CLIA [id number] [address] [place] [address] [place] FINAL DIAGNOSIS Normal [facility] Comment on above: Order Comment: Speci men Type: TISSUE SPECIMEN Ordering Facility: [facility] Address: [address] [place] [address] Result Comment: Soft tissue, right upper back subcutaneous, excision: - Lipoma. Performed By: #### S #### [facility] CLIA [id number] [address] [place] [address] OF [place] FINAL PERFORMING LAB Normal [facility] Comment on above: Order Comment: Speci men Type: TISSUE SPECIMEN Ordering Facility: [facility] Address: [address] [place] [address] Result Comment: Diag nostic interpretation performed at [facility], [address] [place] [address] CLIA# [id number] Pediatric Urologist: Evan Singh M.D. Performed By: #### S #### [facility] CLIA [id number] [address] [place] [address] [place] GROSS DESCRIPTION A. SOFT TISSUE Normal [facility] Comment on above: Order Comment: Speci men Type: TISSUE SPECIMEN Ordering Facility: [facility] Address: [address] [place] [address] Result Comment: Rece ived in formalin labeled as right upper back subcutaneous tissue is a segment of adipose tissue measuring 7.7 x 6.5 x 3.0 cm. Sectioning reveals finn-yellow homogenous cut surfaces. Mathematical Engineering Technician sections submitted in 3 cassettes. MLG March 26, 2023 11:44 AM Gross examination performed at [facility], [address] [place] [address] Performed By: #### S #### [facility] CLIA [id number] [address] [place] [address] [id number] [place] HISTORY PHYSICALon HISTORY PHYSICAL HNO ID: [id number] Author: JOSH GOMEZ PA-C Service: ? Author Type: Physician Substation Technician Type: H&P Filed: 03/23/2023 15:01 Note Text: HISTORY AND PHYSICAL EXAMINATION SERVICE DATE: 03/23/2023 SERVICE TIME: 3:01 PM PRIMARY CARE PHYSICIAN: Maye White MD Assessment Patient has the following medical conditions which may affect edwige-operative course: Essential (primary) hypertension Assessment: BP TODAY IN CLINIC 146/73. STABLE ON RX. 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 My final recommendation will [...] manage symptoms. Procedure scheduled on 03/25/2023 at [facility]. REVIEW OF SYSTEMS: General: No weight loss, malaise or fevers. Neurological: No history of TIA's, stroke, CAUSTIC STRENGTH INSPECTOR tumor, impaired sensorium, hemiplegia, paraplegia or quadraplegia. [...] or inco (more content not included)... [facility] Office Visit (JANIES ) MARIA ISABEL HAMMOND ([id number]) 1960 F Date Time Provider Department 03/18/23 [...] AM Signed HISTORY AND PHYSICAL Maria Isabel Efrain Hammond 1960 REFERRING PHYSICIAN: Maye White MD [...] in the (more content not included)... Normal [facility]as[facility] MARIA ISABEL HAMMOND ([id number]) 1960 F Date Time Provider Department 03/18/23 HARINDER PENNINGTON During your visit today, we recorded the following information about you: Claudia Hayes 03/18/2023 2:37 PM Signed 03/25/2023 EXC SUB Q LESION RIGHT UPPER BACK [place] Allergies As of Date: 03/18/2023 Noted Allergy Reaction TIMMY INHIBITORS 03/18/2023 3 - Cough Comments: Cough, headache CODEINE 03/18/2023 8 - GI Upset Comments: Nausea HYDROCODONE-ACETAMINOP HEN 03/18/2023 8 - GI Upset Comments: Nausea Date Reviewed: 03/18/2023 Reviewed by: Anais Rockwell RN - Fully Assessed Reason for Visit: 03/25/2023 EXC SUB Q LESION RIGHT UPPER BACK [place] [Other] Prescriptions as of 01/05/2024 - irbesartan (AVAPRO) 75 mg tablet Take 75 mg by mouth daily at bedtime. - fluticasone prp-sod.chl,bicarb 50 mcg- 0.9 % ksps Use 2 Sprays in the nose two times a day. - IPRATROPIUM BROMIDE NASAL Use 1 [place] in the nose every 6 hours as needed (nasal congestion, cough, rhinorrhea). - nortriptyline (PAMELOR) 10 mg capsule Take 10 mg by mouth daily at bedtime. - vortioxetine (TRINTELLIX) 10 mg tablet Take 10 mg by mouth once daily. - Ibuprofen 200 mg cap Take 2 capsules by mouth every 6 hours as needed for pain. - levocetirizine 5 mg tablet Take 1 tablet by mouth every afternoon. - methylphenidate CD (METADATE CD) 60 mg biphasic capsule Take 1 capsule by mouth once daily. - valsartan (DIOVAN) 320 mg tablet Take 1 tablet by mouth once daily. - amLODIPine (NORVASC) 10 mg tablet Take 1 tablet by mouth every afternoon. - pravastatin (PRAVACHOL) 80 mg tablet Take 1 tablet by mouth every afternoon. Problem List As Of Date: 03/18/2023 (None) Encounter Status:Closed by AR MARIANO on 01/05/24 Normal [facility] Basophil percentageOrdered B y: Dr. White on 03-24-2022 Bilirubin [Mass/Vol] 0.40 mg/dL 0.20-1.00 [facility] Comment on above: For patients on eltr ombopag therapy, use of Dimension [place] TBIL is not recommended. Chloride [Moles/Vol] 105 mmol/L 98-107 [facility] Glucose [Mass/Vol] 89 mg/dL 74-[address] [facility] Potassium [Moles/Vol] 3.9 mmol/L 3.5-5.1 [facility] Protein [Mass/Vol] 7.7 g/dL 6.4-8.[address] [facility] Sodium [Moles/Vol] 138 mmol/L 136-[address] [facility] Laboratory - Chemistry and C hemistry - challengeOrdered By: Dr. White on 03-24-2022 ALP [Catalytic activity/Vol] 75 U/L 45-117 [facility] ALT [Catalytic activity/Vol] 42 U/L 13-56 [facility] CO2 [Moles/Vol] 21.0 mmol/L 21.0-32.0 [facility] Globulin (S) [Mass/Vol] 3.6 g/dL 2.2-4.2 [facility] Urea nitrogen/Creatinine [Mass ratio] 29.2 mg/mg 10-20 [facility] No Panel InformationOrdered By: Dr. White on 03-24-2022 Estimated GFR (MDRD) Amer 157 mL/min >60 [facility] Comment on above: GFR Calc Estimated GFR (MDRD) Non-Af Amer 130 mL/min >60 [facility] Comment on above: Non- GFR Calc Thyroid Stimulating Hormone (TSH) 2.18 uIU/mL 0.358-3.74 [facility] Serum or plasma albumin lacey urement (mass/volume)Ordered By: Dr. White on 03-24-2022 Albumin [Mass/Vol] 4.1 g/dL 3.2-5.[address] [facility] Serum or plasma albumin/glob ulin mass ratioOrdered By: Dr. White on 03-24-2022 Albumin/Globulin [Mass ratio] 1.1 {ratio} 0.9-2.4 [facility] Serum or plasma calcium lacey urement (mass/volume)Ordered By: Dr. White on 03-24-2022 Calcium [Mass/Vol] 9.8 mg/dL 8.5-10.[address] [facility] Serum or plasma creatinine m easurement (mass/volume)Ordered By: Dr. White on 03-24-2022 Creatinine [Mass/Vol] 0.51 mg/dL 0.55-1.02 [facility] Comment on above: The validity of the calculated GFR & GFRAA in patients over 70 years has not been determined. Clinical correlation is essential. Serum or plasma urea nitroge n measurement (mass/volume)Ordered By: Dr. White on 03-24-2022 Urea nitrogen [Mass/Vol] 15 mg/dL 7-18 [facility] Thin prep Papanicolaou smear with manual screeningOrdered By: Dr. White on 03-24-2022 Thin prep Papanicolaou smear with manual screening 23 U/L 15- [facility] Thin prep Papanicolaou smear with manual screening 12 5-15 [facility] Absolute lymphocyte counton 07-16-2021 Lymphocytes Auto (Unsp spec) [#/Vol] 3.10 10*3/uL 0.83-4.51 [facility] Work Phone: Basophil percentageon 2021 Basophils/100 WBC (Bld) 0.4 % 0-1 [facility] Work Phone: Bilirubin [Mass/Vol] 0.30 mg/dL 0.20-1.00 [facility] Work Phone: Comment on above: For patients on eltr ombopag therapy, use of Dimension [place] TBIL is not recommended. Chloride [Moles/Vol] 107 mmol/L 98-107 [facility] Work Phone: Eosinophils/100 WBC (Bld) 2.8 % 0-5 [facility] Work Phone: Glucose [Mass/Vol] 109 mg/dL 74-[address] [facility] Work Phone: Comment on above: Fasting Glucose resu lt from 100 to 125 mg/dL suggests IMPAIRED HOMEOSTASIS per A.D.A. criteria. Neutrophils (Bld) [#/Vol] 6.7 10*3/uL 2.0-7.7 [facility] Work Phone: Neutrophils/100 WBC (Bld) 60.8 % 47-70 [facility] Work Phone: Potassium [Moles/Vol] 3.8 mmol/L 3.5-5.1 [facility] Work Phone: [phone] Protein [Mass/Vol] 8.0 g/dL 6.4-8.2 [facility] Work [facility]: Sodium [Moles/Vol] 139 mmol/L 136-145 [facility] Work Phone: WBC (Bld) [#/Vol] 11.0 10*3/uL 4.4-11.0 [facility] Work Phone: Blood erythrocytes count (nu mber/volume)on 07-16-2021 RBC (Bld) [#/Vol] 4.61 10*6/uL 4.2-5.4 [facility] Work Phone: Blood hemoglobin measurement (mass/volume)on 07-16-2021 Hemoglobin (Bld) [Mass/Vol] 14.8 g/dL 12.0-15.0 [facility] Work Phone: Blood lymphocytes/100 leukoc yteson 07-16-2021 Lymphocytes/100 WBC (Bld) 28.1 % 19-41 [facility] Work Phone: Blood monocytes/100 leukocyt eson 07-16-2021 Monocytes/100 WBC (Bld) 7.4 % 0-10 [facility] Work Phone: Blood platelet mean volumeon 07-16-2021 Platelet mean volume (Bld) [Entitic vol] 10.3 fL 6.2-12.0 [facility] Work Phone: Determination of erythrocyte mean corpuscular volume (MCV)on 07-16-2021 MCV (RBC) [Entitic vol] 93.5 fL 81-99 [facility] Work Phone: Hematocrit Auto (Bld) [Volum e fraction]on 07-16-2021 Hematocrit (Bld) [Volume fraction] 43.1 % 37-47 [facility] Work Phone: Laboratory - Chemistry and C hemistry - challengeon 07-16-2021 ALP [Catalytic activity/Vol] 82 U/L 45-117 [facility] Work Phone: [phone] ALT [Catalytic activity/Vol] 31 U/L 13-56 [facility] Work Phone: [phone] CO2 [Moles/Vol] 23.0 mmol/L 21.0-32.0 [facility] Work Phone: Globulin (S) [Mass/Vol] 4.1 g/dL 2.2-4.2 [facility] Work Phone: [phone] Urea nitrogen/Creatinine [Mass ratio] 30.0 mg/mg 10-20 [facility] Work Phone: [phone] Laboratory - Hematology and Cell countson 07-16-2021 Erythrocyte distribution width (RBC) [Entitic vol] 44.8 fL 35.1-43.9 [facility] Work Phone: [phone] Erythrocyte distribution width (RBC) [Ratio] 13.1 % 11.6-14.6 [facility] Work Phone: [phone] Immature granulocytes/100 WBC (Bld) 0.500 % 0.0-0.9 [facility] Work Phone: [phone] Comment on above: IG% - Immature Granu locytes (promyelocytes, myelocytes and metamyelocytes) > 1% indicates that a LEFT SHIFT is Present. MCH (RBC) [Entitic mass] 32.1 pg 27.0-32.0 [facility] Work Phone: [phone] Nucleated RBC/100 WBC (Bld) [Ratio] 0 % 0-5 [facility] Work Phone: [phone] MCHC Auto (RBC) [Mass/Vol]on 07-16-2021 MCHC (RBC) [Mass/Vol] 34.3 g/dL 32-36 [facility] Work Phone: No Panel Informationon 07-16 Estimated Creatinine Clearance Calc 84.64 ml/min [facility] Work Phone: Estimated GFR (MDRD) Amer 116 mL/min >60 [facility] Work Phone: Comment on above: GFR Calc Estimated GFR (MDRD) Non-Af Amer 96 mL/min >60 [facility] Work Phone: Comment on above: Non- GFR Calc Platelets bldon 07-16-2021 Platelets (Bld) [#/Vol] 326 10*3/uL 150-450 [facility] Work Phone: Serum or plasma albumin lacey urement (mass/volume)on 07-16-2021 Albumin [Mass/Vol] 3.9 g/dL 3.2-5.[address] [facility] Work Phone: Serum or plasma albumin/glob ulin mass ratioon 07-16-2021 Albumin/Globulin [Mass ratio] 1.0 {ratio} 0.9-2.4 [facility] Work Phone: Serum or plasma calcium lacey urement (mass/volume)on 07-16-2021 Calcium [Mass/Vol] 9.7 mg/dL 8.5-10.[address] [facility] Work Phone: Serum or plasma creatinine m easurement (mass/volume)on 07-16-2021 Creatinine [Mass/Vol] 0.67 mg/dL 0.55-1.02 [facility] Work Phone: Comment on above: The validity of the calculated GFR & GFRAA in patients over 70 years has not been determined. Clinical correlation is essential. Serum or plasma urea nitroge n measurement (mass/volume)on 07-16-2021 Urea nitrogen [Mass/Vol] 20 mg/dL 7-18 [facility] Work Phone: Thin prep Papanicolaou smear with manual screeningon 07-16-2021 Thin prep Papanicolaou smear with manual screening 13 U/L 15-37 [facility] Work Phone: Thin prep Papanicolaou smear with manual screening 9 5-15 [facility] Work Phone: Basophil percentageon 2021 Chloride [Moles/Vol] 102 mmol/L 98-107 [facility] Work Phone: Glucose [Mass/Vol] 80 mg/dL 74-[address] [facility] Work Phone: Potassium [Moles/Vol] 3.5 mmol/L 3.5-5.1 [facility] Work Phone: Sodium [Moles/Vol] 136 mmol/L 136-[address] [facility] Work Phone: Laboratory - Chemistry and C hemistry - challengeon 06-19-2021 CO2 [Moles/Vol] 25.0 mmol/L 21.0-32.0 [facility] Work Phone: Cobalamin (Vitamin B12) [Mass/Vol] 454 pg/mL 211-911 [facility] Work Phone: Urea nitrogen/Creatinine [Mass ratio] 23.0 mg/mg 10- [facility] Work Phone: No Panel Informationon 06-19 Estimated GFR (MDRD) Amer 141 mL/min >60 [facility] Work Phone: Comment on above: GFR Calc Estimated GFR (MDRD) Non-Af Amer 116 mL/min >60 [facility] Work Phone: Comment on above: Non- GFR Calc Thyroid Stimulating Hormone (TSH) 2.70 uIU/mL 0.358-3.74 [facility] Work Phone: Serum or plasma calcium lacey urement (mass/volume)on 06-19-2021 Calcium [Mass/Vol] 9.4 mg/dL 8.5-10.[address] [facility] Work Phone: Serum or plasma creatinine m easurement (mass/volume)on 04-20-2022 Creatinine [Mass/Vol] 0.56 mg/dL 0.55-1.02 [facility] Work Phone: Comment on above: The validity of the calculated GFR & GFRAA in patients over 70 years has not been determined. Clinical correlation is essential. Serum or plasma folate measu rement (mass/volume)on 06-19-2021 Folate [Mass/Vol] 19.30 ng/mL 3.1-55.[address] [facility] Work Phone: Serum or plasma urea nitroge n measurement (mass/volume)on 06-19-2021 Urea nitrogen [Mass/Vol] 13 mg/dL 7-18 [facility] Work Phone: Thin prep Papanicolaou smear with manual screeningon 06-19-2021 Thin prep Papanicolaou smear with manual screening 9 5-15 [facility] Work Phone: Thin prep Papanicolaou smear with manual screeningon 02-02-2020 Thin prep Papanicolaou smear with manual screening 145 U/L 84-246 [facility] Work Phone: Erythrocyte distribution wid th standard deviationon 02-04-2018 Erythrocyte distribution width (RBC) [Entitic vol] 44.7 fL 35.1-43.9 [facility] Work Phone: Laboratory - Hematology and Cell countson 02-04-2018 Erythrocyte distribution width (RBC) [Ratio] 12.9 % 11.6-14.6 [facility] Work Phone: Total cell counton 8 Cells counted Molgen (Bld/Tiss) [#] Not Reportable [facility] Work Phone: No Panel Informationon 12-04 Vitamin D 1,25-Dihydroxy 63.9 pg/mL 19.9-79.3 [facility] Work Phone: Comment on above: Performed at: [address] [id number] Director: Yon Armijo MD, Phone: [phone] Vital Signs Date Time Vital Sign Value Performing Clinician Faci lity 11-29-2022 13:56-0400 Body temperature 97.7 [degF] Gypsy Athy PA-C Work Phone: [facility] 11-29-2022 13:56-0400 Body weight 106.96 kg Gypsy Athy PA-C Work Phone: [facility] 11-29-2022 13:56-0400 Diastolic blood pressure 86 mm[Hg] Gypsy Athy PA-C Work Phone: [facility] 11-29-2022 13:56-0400 Heart rate 86 /min Gypsy Athy PA-C Work Phone: [facility] 11-29-2022 13:56-0400 Respiratory rate 16 /min Gypsy Athy PA-C Work Phone: [facility] 11-29-2022 13:56-0400 SaO2% (BldA) [Mass fraction] 96 % Gypsy Athy PA-C Work Phone: [facility] 11-29-2022 13:56-0400 Systolic blood pressure 134 mm[Hg] Gypsy Athy PA-C Work Phone: [facility] 08-04-2021 11:18-0400 Body temperature 98.8 [degF] Ara Phuong CONSTRUCTION PROJECT ADMINISTRATOR.ENERGY DIRECTOR Work Phone: [facility] 08-04-2021 11:18-0400 Body weight 102.78 kg Ara Phuong CONSTRUCTION PROJECT ADMINISTRATOR.ENERGY DIRECTOR Work Phone: [facility] 08-04-2021 11:18-0400 Diastolic blood pressure 78 mm[Hg] Ara Phuong CONSTRUCTION PROJECT ADMINISTRATOR.ENERGY DIRECTOR Work Phone: [facility] 08-04-2021 11:18-0400 Heart rate 80 /min Ara Phuong CONSTRUCTION PROJECT ADMINISTRATOR.ENERGY DIRECTOR Work Phone: [facility] 08-04-2021 11:18-0400 Respiratory rate 18 /min Ara Phuong CONSTRUCTION PROJECT ADMINISTRATOR.ENERGY DIRECTOR Work Phone: [facility] 08-04-2021 11:18-0400 SaO2% (BldA) [Mass fraction] 97 % Ara Baca CONSTRUCTION PROJECT ADMINISTRATOR.ENERGY DIRECTOR Work Phone: [facility] 08-04-2021 11:18-0400 Systolic blood pressure 136 mm[Hg] Ara Baca APRN.ENERGY DIRECTOR Work Phone: [facility] 07-16-2021 13:48-0400 Body height 167.[address] Maye White Work Phone: [facility] Work Phone: 07-16-2021 13:48-0400 Body mass index (BMI) [Ratio] 36.9 kg/m2 Dr. Maye White Work Phone: [facility] Work Phone: 07-16-2021 13:48-0400 Body temperature 98.7 [degF] Dr. Maye White Work Phone: [facility] Work Phone: 07-16-2021 13:48-0400 Body weight 103.[address] Maye White Work Phone: [facility] Work Phone: 07-16-2021 13:48-0400 Diastolic blood pressure 84 mm[Hg] Dr. Maye White Work Phone: [facility] Work Phone: 07-16-2021 13:48-0400 Heart rate 90 /min Dr. Maye White Work Phone: [facility] Work Phone: 07-16-2021 13:48-0400 Respiratory rate 15 /min Dr. Maye White Work Phone: [facility] Work Phone: 07-16-2021 13:48-0400 SaO2% (BldA) [Mass fraction] 93 % Dr. Maye White Work Phone: [facility] Work Phone: 07-16-2021 13:48-0400 Systolic blood pressure 146 mm[Hg] Dr. Maye White Work Phone: [facility] Work Phone: 02-02-2020 14:29-0500 Body mass index (BMI) [Ratio] 35.5 kg/m2 Dr. Maye White Work Phone: [facility] Work Phone: 02-02-2020 14:29-0500 Body temperature 98 [degF] Dr. Maye White Work Phone: [facility] Work Phone: 02-02-2020 14:29-0500 Body weight 101.[address] Maye White Work Phone: [facility] Work Phone: 02-02-2020 14:29-0500 Diastolic blood pressure 85 mm[Hg] Dr. Maye White Work Phone: [facility] Work Phone: 02-02-2020 14:29-0500 Heart rate 88 /min Dr. Maye White Work Phone: [facility] Work Phone: 02-02-2020 14:29-0500 Respiratory rate 16 /min Dr. Maye White Work Phone: [facility] Work Phone: 02-02-2020 14:29-0500 SaO2% (BldA) [Mass fraction] 97 % Dr. Maye White Work Phone: [facility] Work Phone: 02-02-2020 14:29-0500 Systolic blood pressure 135 mm[Hg] Dr. Maye White Work Phone: [facility] Work Phone: Encounters Encounter Date Encounter Type Care Provider Facility Start: 09-20-2024 End: 09-20-[address] Maye White MD Work Phone: [facility] Start: 09-20-2024 End: 09-20-[address] Maye White MD -Laboratory [facility] Start: 09-20-2024 End: 09-20-2024 ambulatory Maye White Facility:[facility] Start: 12-29-2023 End: 12-29-2023 ambulatory Maye White Facility:[facility] Start: 10-15-2023 ambulatory Maye White Facility:[facility] Start: 07-06-2023 End: 07-06-2023 ambulatory [facility] Work Phone: Start: 07-06-2023 End: 07-06-2023 Patient encounter procedure [facility] Work Phone: Start: 04-07-2023 End: 04-07-2023 ambulatory [facility] Work Phone: Start: 04-07-2023 End: 04-07-2023 [facility] Start: 03-25-2023 End: 03-25-2023 ambulatory MAYE WHITE Facility:[facility] Start: 03-23-2023 End: 03-23-2023 ambulatory MAYE WHITE Facility:[facility] Start: 03-23-2023 Encounter for other preprocedural examination MAYE WHITE [facility] Start: 03-18-2023 End: 01-05-2024 Telephone encounter Harinder Pennington MD Work Phone: General Surgery Comment on above: 03/25/2023 EXC SUB Q LESION RIGHT UPPER BACK STRAWBERRY Start: 03-18-2023 End: 03-18-2023 ambulatory HARINDER PENNINGTON Facility:[facility] Start: 11-29-2022 End: 11-29-2022 Patient encounter procedure Gypsy Correa PA-C Work Phone: [facility] Comment on above: Acute pansinusitis, recurrence not specified (Primary Dx); Middle ear effusion, right Start: 03-24-2022 End: 03-24-2022 ambulatory [facility] Work Phone: Start: 03-24-2022 End: 03-24-2022 Patient encounter procedure [facility] Start: 09-26-2021 End: 09-26-[address] Maye White Work Phone: [facility] Ultrasound Start: 08-04-2021 End: 08-04-2021 Patient encounter procedure Ara Baca APRNPauletteENERGY DIRECTOR Work Phone: [facility] Comment on above: Exposure to COVID-19 virus (Primary Dx); Suspected COVID-19 virus infection; Viral illness Start: 07-16-[address] Maye White Work Phone: [facility] Oncology Start: 07-16-2021 End: 07-16-[address] Maye White Work Phone: [facility] Cancer Care Start: 06-19-2021 End: 06-19-2021 Patient encounter procedure [facility] Procedures Date Procedure Procedure Detail Performing Clinician Start: 07-06-2023 Screening mammography Start: 09-26-2021 Bilateral mammography Issa White Work Phone: Start: 09-26-[address] Maye White Work Phone: Plan of Treatment Date Care Activity Detail Author Start: 08-10-2030 Urine microalbumin profile DTaP,Tdap,Td Vaccine (2 - Td or Tdap) [facility] Start: 11-01-2023 Covid-19 Vaccine ( season) Covid-19 Vaccine ( season) [facility] Start: 11-01-2023 Influenza vaccination Influenza Vacc ine (#1) [facility] Start: 10-31-2022 Influenza vaccination Influenza Vacc ine (#1) [facility] Start: 03-02-2022 Depression Assessment Depression Ass essment [facility] Start: 2021 RSV Vaccine (1 - Ris k 60-74 years 1-dose series) RSV Vaccine (1 - Risk 60-74 years 1-dose series) [facility] Start: 10-31-2021 Influenza vaccination INFLUENZ A (Season Ended) [facility] Start: 08-10-2021 Pneumococcal vaccination Pneum ococcal Vaccine (2 of 2 - PCV) [facility] Start: 08-04-2021 End: 08-18-2021 Influenza virus A and B RNA and SARS-CoV-2 (COVID-19) N gene panel - Respiratory specimen by LANI with probe detection COVID WITH FLUA+B, ROUTINE Microbiology Routine Exposure to COVID-19 virus Expected: 08/04/2021, Expires: 08/18/2021 [facility] Work Phone: Comment on above: Expected: 08/04/2021 , Expires: 08/18/2021 Start: 12-20-2011 SHINGRIX VACCINE (1 of 2) SHINGRIX VACCINE (1 of 2) [facility] Start: 2006 COLOGUARD (FIT-DNA) COLOGUARD (FIT-D NA) [facility] Start: 2006 Colonoscopy COLONOSCOPY [facility] Start: 2006 COLORECTAL CANCER SCREENING COLORECTAL CANCER SCREENING [facility] Start: [address] COLONOGRAPHY [facility] Start: 2006 DIABETES SCREEN DIABETES SCREEN [facility] Start: 2006 Diabetes Screening Diabetes Screenin g [facility] Start: 2006 FECAL OCCULT BLOOD FECAL OCCULT BLOO D [facility] Start: 2006 Lipid 1996 panel - S pierre or Plasma Lipid Screening [facility] Start: 2006 Lipid panel Lipid Screening [facility] Start: 2006 LIPID SCREEN LIPID SCREEN [facility] Start: 2006 Screening for malign ant neoplasm of colon [facility] Start: 2006 SIGMOIDOSCOPY SIGMOIDOSCOPY [facility] Start: 2001 Mammography [facility] Start: 2001 Screening for malign ant neoplasm of breast Mammogram Screening [facility] Start: 12-20-1991 HPV TESTING HPV TESTING [facility] Start: 1982 PAP TESTING PAP TESTING [facility] Start: 1982 Screening for malign ant neoplasm of cervix Cervical Cancer Screening [facility] Start: 1980 Urine microalbumin profile [facility] Start: 12-20-1979 Annual PCP Team Pulley Worker angelica Disease Visit Annual PCP Team Chronic Disease Visit [facility] Start: 12-20-1979 BP Controlled (<130/80) BP Controlle d (<130/80) [facility] Start: 12-20-1979 HEPATITIS C SCREENING HEPATITIS C [facility] Start: 12-20-1979 Hepatitis C screening Hepatitis C [facility] Start: 12-20-1979 HIV SCREENING HIV SCREENING [facility] Start: 12-20-1979 HIV screening HIV Screening [facility] Start: 1973 Adult depression screening assessment DEPRESSION SCREENING [facility] Start: 12-20-1967 PNEUMOCOCCAL (1 - PCV) PNEUMOCOCCAL (1 - PCV) [facility] Start: 12-20-1967 Pneumococcal vaccination Pneum ococcal Vaccine (1 - PCV) [facility] Start: 1966 COVID-19 VACCINE (#1) COVID-19 VACCI NE (#1) [facility] Start: 06-19-1962 Covid-19 Vaccine (#1) Covid-19 Vacci ne (#1) [facility] MG Breast - bilatera l [facility] Work Phone: Immunizations Immunization Date Immunization Notes [facility] influenza virus vacc ine, unspecified formulation Gypsy Correa PA-C Work Phone: [facility] Payers Date Payer Category Payer Self-pay [id number] 2021 Unknown [employer] BLUE CARD PPO OOS [id number] 2021-Present [phone] [address] [place] [address] PPO [id number] 2021 Unknown [employer] BLUE ACCE SS PPO [id number] 2021-Present [phone] [address] [place] [address] PPO [id number] 2021 Unknown [id number] Private Health Insurance [id number] Unknown [id number] Unknown [id number] Unknown [id number] Social History Date Type Detail Facility Start: 12-10-2020 End: 12-10-2020 Tobacco smoking status AZIS Unknown if ever smoked [facility] Start: 02-02-2020 Cigarettes [facility] Start: 1960 Sex Assigned At Female W [facility] Start: 12-10-2020 End: 08-04-2021 Tobacco smoking status AZIS Smokes tobacco daily [facility] End: 01-30-2007 History of tobacco use Smoker [facility] Start: 08-04-2021 End: 03-18-2023 Tobacco use and exposure Smokeless tobacco non-user [facility] Start: 08-04-2021 End: 03-18-2023 Alcohol intake Current drinker of alcohol (finding) [facility] Start: 1960 Sex Assigned At Not on file [facility] Start: 07-25-2021 End: 08-04-2021 Exposure to SARS-CoV-2 (event) Not sure [facility] Work Phone: End: 01-30-2007 History of tobacco use Cigarette Smoker [facility] Start: 11-29-2022 End: 03-18-2023 History of Social function [facility] Start: 11-29-2022 End: 03-18-2023 Tobacco use panel [facility] National Score (1-100), lower number is lower risk 47 [facility] Start: 03-18-2023 Alcohol Comment social [facility] Procedure Code Equipment Code Equipment Origin al Text Equipment Identifier Dates RELOAD,STANDARD 45 [id number] ETH FDA Start: 12-03-2017 RELOAD,STANDARD 45 [id number] ETH FDA Start: 12-03-2017 RELOAD,STANDARD 45 [id number] ETH FDA Start: 12-03-2017 RELOAD,STANDARD 45 [id number] ETH FDA Start: 12-03-2017 RELOAD,STANDARD 45 [id number] ETH FDA Start: 12-03-2017 RELOAD,STANDARD 45 [id number] ETH FDA Start: 12-03-2017 Clinical Notes 08-04-2021 to 03-23-2023 Telephone Encounter - Claudia Hayes - 03/18/2023 2:37 PM ESTTelephone Encounter - Claudia Hayes - 03/18/2023 2:37 PM Gypsy Mcclendon PA-C - 11/29/2022 2:13 PM EDTPatient Instructions Note Date & Type Note Facility 03-23-2023 Note HNO ID: [id number] Author: HARINDER PENNINGTON MD Service: ? Author Type: Physician Type: Progress Notes Filed: 03/23/2023 11:53 Note Text: HISTORY AND PHYSICAL Maria Isabel L Santi 1960 REFERRING PHYSICIAN: Maye White MD [...] a day. IPRATROPIUM BROMIDE NASAL Use 1 [place] in the nose every 6 hours as [...] entered by the nurse and reviewed by ne Nursing Notes: Anais Rockwell RN 03/18/2023 2:06 PM Signed REVIEW OF SYSTEMS: General: The patient denies fatigue, denies weight loss, NOTES weight gain, denies feeling hot, and denies feelings of cold. Eyes: The patient denies glaucoma, denies eye injury/surgery, wears glasses or contacts. Ear/Nose/Throat: The patient NOTES allerg (more content not included)... [facility] 03-18-2023 Telephone encounter Note 03/25/2023 EXC SUB Q LESION RIGHT UPPER BACK GALICIA [facility] 03-18-2023 Miscellaneous Notes 03/25/2023 EXC SUB Q LESION RIGHT UPPER BACK GALICIA documented in this encounter [facility] 11-29-2022 History of Present illness Narrative This note was created using Likezriter. Subjective Maria Isabel Hammond is a 61 [...] Gypsy Correa PA-C documented in this encounter [facility] 08-04-2021 Instructions Ara Baca APRN.[place] - 08/04/2021 11:40 AM EDT covid test ordered You will be notified in 24 -48 hours, results available on [facility] Home isolation until covid results are back [...] inability to swallow. documented in this encounter [facility] 08-04-2021 History of Present illness Narrative Subjective The history is provided by the patient. No environmental projects advisor was used. HPI Maria Isabel White is [...] have confirmed and edited as necessary, the [facility] Review of Systems Constitutional: Negative for [...] in 24-48 hours with results, available on [employer]t 3. 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 [facility] Work Phone: Evaluation note* Diagnosis Acute pansinusitis, recurrence not specified- Primary Middle ear effusion, right [facility] (narrative)No reason for referral information availableWK[facility] Work Phone: Chief Complaint and Reason for Visit Chief Complaint FATIGUE, HYPERTENSIO N Chief Complaint FATIGUE, HYPERTENSIO N 1 YR LABS ONC/HEM LT BREAST FIRM AREA/NODULE Reason for Visit 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 Chief Complaint EORDER Chief Complaint EORDER SCREENING Family History No Family History Records Found Relationship Condition Age at Onset Recorded Date/T mari brother Diabetes mellitus Unknown father Malignant neoplasm of lung Unknown mother Malignant neoplasm of lung Unknown brother Chronic obstructive pulmonary disease Unk nown Advance Directives No Advanced Directives Records Found Advance Directive Response Recorded Date/ Time Living Will No December 10 2:15am Power of Label Tacker No December 10, 2020 2:15am Advance Directive Response Recorded Date/ Time Living Will No December 10 1:15am Power of Label Tacker No December 10, 2020 1:15am Health Concerns Infection Onset Date Last Indicated Resolved Time COVID-19 Rule-Out 08/04/2021 08/04/2021 Summary Purpose Additional Source Comments Goals (unrecognized section and content) Goals may be documented in a n alternate sectionGoals may be documented in an alternate sectionGoals may be documented in an alternate sectionGoals may be documented in an alternate sectionGoals may be documented in an alternate sectionGoals may be documented in an alternate section Source Comments (unrecognize d section and content) In the event this informatio n is protected by the Federal Confidentiality of Alcohol and Drug Abuse Patient Records regulations: The Federal rules restrict any use of the information to criminally investigate or prosecute any alcohol or drug abuse patient.[facility] the event this information is protected by the Federal Confidentiality of Alcohol and Drug Abuse Patient Records regulations: The Federal rules restrict any use of the information to criminally investigate or prosecute any alcohol or drug abuse patient.[facility] the event this information is protected by the Federal Confidentiality of Alcohol and Drug Abuse Patient Records regulations: The Federal rules restrict any use of the information to criminally investigate or prosecute any alcohol or drug abuse patient.[facility] Reason for Visit (unrecogniz ed section and content) Reason Comments Cough cough, ST and SINHA x 4 days Reason Comments Nasal Congestion With drainage, sore throat x 3 days & RIGHT ear pain x 1 week Reason Comments 03/25/2023 EXC SUB Q LESION RIGHT UPPER B ACK STRAWBERRY Care Teams (unrecognized sec tion and content) Cable Testers Helper Relationship Specialty Start Date End Date Maye White MD PCP - General 08/09/08 Team Status: Active Member Role Status Dates Dr. Maye White MD Family Provider Active Dr. Maye White MD Primary Care Provider Active Team Status: Inactive Member Role Status Dates Dr. Maye White MD Primary Care Provider, Attending P abdi Active Cable Testers Helper Relationship Specialty Start Date End Date Maye White MD PCP General 08/09/08 Team Status: Inactive Member Role Status Dates Dr. Maye White MD Primary Care Provide r, Attending Provider, Referring Provider Active Cable Testers Helper Relationship Specialty Start Date End Date Maye White MD PCP General 08/09/08 Team Status: Active Member Role/Relationship Status Dates Dr. Maye White MD Family Provider Active Dr. Maye White MD Primary Care Provider Active Team Status: Inactive Member Role/Relationship Status Dates Dr. Maye White MD Primary Care Provider Active Start: September 20, 2024 End: September 20, 2024 Dr. Maye White MD Attending Provider Active St art: September 20, 2024 End: September 20, 2024 Dr. Maye White MD Referring Provider Active St art: September 20, 2024 End: September 20, 2024 INFORMATION SOURCE (unrecogn ized section and content) DATE CREATED AUTHOR 03/29/2023 [facility] DATE CREATED AUTHOR AUTHOR'S ORGANIZ ATION 01/07/2024 [facility] DATE CREATED AUTHOR AUTHOR'S ORGANIZ ATION 09/27/2024 [facility] FOR RECORDS PERTAINING TO PATIENTS WHO [...] BE BASED ON THE PRIMARY CLINICAL RECORDS. [email or web address] provides no warranty or guarantee of the accuracy or completeness of information in this document.
[2025-01-24 13:17] LABS: AST(SGOT) 21 U/L (<=31); Alanine Aminotransfer ALT/SGPT 27 U/L (<=34); Albumin, Serum 4.5 g/dL (3.4-4.8); Alkaline Phosphatase 70 U/L (35-104); Anion Gap 14 (5-15); BUN 14 mg/dL (4-19); BUN/Creat Ratio 24.7 RATIO (10-20); Calcium,Total 9.3 mg/dL (7.6-11.0); Carbon Dioxide 20.6 mmol/L (21.0-32.0); Chloride 103 mmol/L (98-108); Follicle Stimulating Hormone 50.6 mIU/mL; Globulin 3.2 g/dL (2.2-4.2); Glucose 83 mg/dL (70-99); Potassium 4.0 mmol/L (3.3-5.1)
[2025-01-25 14:09] LABS: ANTINUCLEAR ANTIBODIES DIRECT Positive (Negative)
== END | disposition home or self-care (01) ==
LOC: MFPLAB 10:43
PROVIDERS: PCP Family Medicine; Visit Provider Family Medicine
DX: R53.83 Other fatigue (principal)
CPT/HCPCS: 36415; 80053; 83001; 83002; 84443; 85025; 86038

== ENCOUNTER → 2025-01-31 | Outpatient (CLI) | payer BC, SELFPAY ==
[2025-02-02 15:08] LABS: ANTINUCLEAR ANTIBODIES DIRECT Positive (Negative); Anti-Chromatin <0.2 AI (0.0-0.9); Anti-Jo <0.2 AI (0.0-0.9); Anti-dsDNA Ab <1 IU/mL (0-9); SJOGREN'S Anti-SS-A test < 0.2 AI (0.0-0.9); SJOGREN'S Anti-SS-B test < 0.2 AI (0.0-0.9)
== END | disposition home or self-care (01) ==
LOC: MTLAB 12:47
PROVIDERS: PCP Family Medicine; Referring Provider Family Medicine; Visit Provider Family Medicine
DX: R53.83 Other fatigue (principal)
CPT/HCPCS: 36415; 86038; 86225; 86235